=== PATIENT | male | born 1935 | race Caucasian/White ===

== ENCOUNTER 2016-06-15 22:40 | Observation (INO) | payer MEDICARE, OTHER ==
--- NOTE | 2016-06-16 00:08 | ER Document Report ---
ED General - General Chief Complaint: Fall Injury Stated Complaint: FALL,ARM PAIN Notes: Patient is an 81-year-old male who presents with complaint of fall. He says he' s been very weak over last week. This regression worsening. Today he's fallen 3 times. Says he has pain over left arm. It hurts when he moves his elbow. He denies any other injuries from the fall. He denies any focal weakness or numbness. He says globally he just feels very weak. He says he does have a bad left ankle and leg related to previous surgery. He says this may be worsening some. No recent fevers. No known infections. No cough or congestion. No abdominal pain. No chest pain. No other complaints at this time. TRAVEL OUTSIDE OF THE [place] IN LAST 30 DAYS: No - Related Data Allergies/Adverse Reactions: No Known Allergies Allergy (Verified 06/15/14 16:15) Past Medical History - Social History Smoking Status: Unknown if Ever Smoked Frequency of alcohol use: None Drug Abuse: None Family History: Reviewed & Not Pertinent - Past Medical History Cardiac Medical History: Reports: Hx Hypercholesterolemia, Hx Hypertension Pulmonary Medical History: Reports: Hx Pneumonia Past Surgical History: Reports: Hx Oral Surgery, Hx Orthopedic Surgery - Immunizations Hx Diphtheria, Pertussis, Tetanus Vaccination: Yes Hx Pneumococcal Vaccination: 02/12/10 Review of Systems - Review of Systems Notes: My Normal Review Basic REVIEW OF SYSTEMS: CONSTITUTIONAL : Denies fever, chills, or sweats. Denies recent illness. EENT: Denies eye, ear, throat, or mouth pain or symptoms. Denies nasal or sinus congestion. CARDIOVASCULAR: Denies chest pain. RESPIRATORY: Denies cough, cold, or chest congestion. Denies shortness of breath, difficulty breathing, or wheezing. GASTROINTESTINAL: Denies abdominal pain. Denies nausea, vomiting, or diarrhea. Denies constipation. Last BM: MUSCULOSKELETAL: Denies neck or back pain or joint pain or swelling. SKIN: Denies rash or skin lesions. HEMATOLOGIC : Denies easy bruising or bleeding. LYMPHATIC: Denies swollen, enlarged glands. NEUROLOGICAL: Denies altered mental status or loss of consciousness. Denies headache. Denies weakness or paralysis or loss of use of either side. Denies problems with gait or speech. Denies sensory or motor loss. Feels globally weak. ALL OTHER SYSTEMS REVIEWED AND NEGATIVE. Physical Exam - Notes Notes: General Appearance: Well nourished, alert, cooperative, no acute distress, no obvious discomfort. Weak appearing. Vitals: reviewed, See vital signs table. Head: no swelling or tenderness to the head Eyes: PERRL, EOMI, Conjuctiva clear Mouth: No decreasd moisture Throat: No tonsillar inflammation, No airway obstruction, No lymphadenopathy Neck: Supple, no neck tenderness, No thyromegaly Lungs: No wheezing, No rales, No rhonci, No accessory muscle use, good air exchange bilaterally. Heart: Tachycardic rate, Regular rythm, No murmur, no rub Abdomen: Normal BS, soft, No rigidity, No abdominal tenderness, No guarding, no rebound, no abdominal masses, no organomegaly Extremities: strength 5/5 in all extremities, good pulses in all extremities, some pain with movement of left elbow, no edema. Skin: warm, dry, appropriate color, no rash Neuro: speech clear, oriented x 3, normal affect, responds appropriately to questions. Course - Re-evaluation Re-evalutation: 06/16/16 04:26 I reevaluated the patient. He continues to be tachycardic. His laboratory evaluation does not show anything specific that could be causing his weakness. Patient is now starting to complain of some pain. Pain is in his abdomen. He is not having this earlier. I did re-palpating his abdomen. He has pain mainly in the right side. I will order a CT scan with IV contrast to evaluate his abdominal pain. Patient says he feels constipated. I will also order lactic acid. - Laboratory Result Diagrams: 06/16/16 02:45 06/16/16 02:45 Laboratory results interpreted by me: 06/16/16 06/16/16 06/16/16 02:27 02:45 02:45 WBC 12.3 H Absolute Neutrophils 8.9 H Glucose 138 H TSH Urine Protein 30 H Urine Glucose (UA) >=500 H Urine Blood SMALL H 06/16/16 02:45 WBC Absolute Neutrophils Glucose TSH 5.30 H Urine Protein Urine Glucose (UA) Urine Blood - EKG Interpretation by Me Additional EKG results interpreted by me: 06/16/16 00:08 EKG is reviewed and interpreted by me. EKG shows sinus rhythm with rate of [address] segment elevation or depression. No skin T wave inversions. Occasional PVC. LA interval is prolonged. QRS duration QTC intervals are within normal range. Patient does have small inferior Q waves which are unchanged comparison to her old EKG from 06/15/2014. 06/16/16 00:09 - Transfer of Care Notes: 06/16/16 06:27 The exact cause of the patient's weakness is not exactly clear at this time. He did develop some lower abdominal pain. It was not severe. His abdominal exam. Be fairly benign except for some pain to palpation lower abdomen. Did obtain a CT scan a lactic acid. Lactic gas was normal. CT scan just showed some urinary retention and bladder stones. He says he does feel constipated and he does have some stool in the rectum. Again did do not think this represents why he has worsening weakness over the last week as well as frequent falls. I did scan his head which was negative. On exam he is very weak and has difficulty even sitting up in bed on his own. Due to his severe weakness, tachycardia, frequent falls, I do think it is appropriate to admit him to the hospital for further workup and treatment. I did speak with the hospitalist who agrees that the patient. Dictation of this chart was performed using voice recognition software; therefore, there may be some unintended grammatical errors. Discharge - Discharge Clinical Impression: Tachycardia, Urinary retention Abdominal pain Qualifiers: Abdominal location: unspecified location Qualified Code(s): R10.9 - Unspecified abdominal pain Fall Qualifiers: Encounter type: initial encounter Qualified Code(s): W19.XXXA - Unspecified fall, initial encounter Condition: Stable Disposition: ADMITTED OBSERVATION Admitting Provider: Hospitalist Unit Admitted: Telemetry
[2016-06-16] MEDS ORDERED: DIPH/PERTUSS(ACELL)/TETANUS VAC/PF 0.5 ML SYR (>=10YO) IM ONE (00:33)
[2016-06-16] MEDS ORDERED: CEPHALEXIN 500 MG CAPSULE PO ONE (00:33)
[2016-06-16] MEDS ORDERED: NORMAL SALINE 1000 ML 1,000 ML IV ONE (01:10)
[2016-06-16 02:53] LABS: APPEARANCE,URINE CLEAR; BILIRUBIN,URINE NEGATIVE (NEGATIVE); GLUCOSE, URINE >=500 mg/dL (NEGATIVE); KETONES,URINE NEGATIVE (NEGATIVE); LEUKOCYTE ESTERASE,URINE NEGATIVE (NEGATIVE); NITRITE,URINE NEGATIVE (NEGATIVE); PROTEIN,URINE 30 mg/dL (NEGATIVE); URINE SPECIFIC GRAVITY 1.006; UROBILINOGEN,URINE NEGATIVE mg/dL (<2.0)
[2016-06-16 03:07] LABS: ABSOLUTE BASOPHILS # (AUTO) 0.1 10^3/uL (0.0-0.2); ABSOLUTE EOSINOPHILS # (AUTO) 0.1 10^3/uL (0.0-0.6); ABSOLUTE MONOCYTES (AUTO) 1.2 10^3/uL (0.1-1.4); ABSOLUTE NEUT (AUTO) 8.9 10^3/uL (1.7-8.2); BASOPHILS % (AUTO) 0.9 % (0-2); EOSINOPHILS % (AUTO) 0.9 % (0-6); HEMATOCRIT 48.6 % (37.9-51.0); HEMOGLOBIN 16.4 g/dL (13.5-17.0); HGB HCT DIFFERENCE 0.6; LYMPHOCYTES % (AUTO) 16.4 % (13-45); MEAN CORPUSCULAR HEMOGLOBIN 31.7 pg (27.0-33.4); MEAN CORPUSCULAR HGB CONC 33.8 g/dL (32.0-36.0); MEAN CORPUSCULAR VOLUME 94 fl (80-97); MONOCYTES % (AUTO) 9.9 % (3-13); RED BLOOD COUNT 5.18 10^6/uL (4.35-5.55); SEGMENTED NEUTROPHILS % (AUTO) 71.9 % (42-78); WHITE BLOOD COUNT 12.3 10^3/uL (4.0-10.5)
[2016-06-16 03:16] LABS: ALANINE AMINOTRANSFERASE 40 U/L (21-72); ALBUMIN 4.1 g/dL (3.5-5.0); ALKALINE PHOSPHATASE 72 U/L (38-126); ANION GAP 14 (5-19); ASPARTATE AMINO TRANSFERASE 26 U/L (17-59); BILIRUBIN,TOTAL 0.7 mg/dL (0.2-1.3); BLOOD UREA NITROGEN 11 mg/dL (7-20); CALCIUM 9.6 mg/dL (8.4-10.2); CARBON DIOXIDE 24 mmol/L (22-30); CHLORIDE 100 mmol/L (98-107); CREATINE KINASE 126 U/L (55-170); CREATININE RESULT 0.83 mg/dL (0.52-1.25); GLUCOSE 138 mg/dL (75-110); LIPASE 103.6 U/L (23-300); POTASSIUM 4.4 mmol/L (3.6-5.0); SODIUM 138.4 mmol/L (137-145); TOTAL PROTEIN 7.9 g/dL (6.3-8.2)
[2016-06-16 03:27] LABS: CREATINE KINASE MB 1.64 ng/mL (<4.55); TROPONIN I 0.015 ng/mL
[2016-06-16] MEDS ORDERED: FENTANYL CITRATE INJ/PF 100 MCG/2 ML AMPUL IV ONE (04:25)
[2016-06-16] MEDS ORDERED: LACTULOSE SYRUP 20 GM/30 ML UDCUP PO ONE (06:26)
[2016-06-16] MEDS ORDERED: ACETAMINOPHEN 325 MG TABLET PO PRN (06:28)
[2016-06-16] MEDS ORDERED: ONDANSETRON HCL INJ/PF 4 MG/2 ML SDV IV PRN (06:28)
[2016-06-16] MEDS ORDERED: HYDRALAZINE HCL INJ/PF 20 MG/1 ML SDV IV PRN (06:53)
[2016-06-16 07:41] LABS: FREE T3 4.35 pg/mL (2.77-5.27)
--- NOTE | 2016-06-16 07:46 | PDOC H&P ---
History of Present Illness Admission Date/PCP: 06/16/16 06:28 Patient complains of: Generalized weakness and fall History of Present Illness: ALYSE ÁLVAREZ is a 81 year old male with a past medical history of hypertension, BPH and tobacco who'd been in his usual state of health until proximally 10 days ago noted exceptional weakness which has become gradually worse also associated with abdominal pain prompting him to call EMS who found him disheveled covered in roaches despite living with and son. In the emergency room he's found to have a blood pressure of 208 8/117 and sinus tachycardia in the 130s. Hematology and chemistry labs are unremarkable, CT imaging of abdomen and pelvis show constipation. Patient states he is run out of his medications approximately 2 weeks ago and unable to obtain refill as he is unable to drive. Past Medical History Cardiac Medical History: Reports: Hyperlipidema, Hypertension Pulmonary Medical History: Reports: Pneumonia Psychiatric Medical History: Reports: Tobacco Dependency Past Surgical History Past Surgical History: Reports: Orthopedic Surgery Social History Information Source: Patient Lives with: Family Smoking Status: Unknown if Ever Smoked Frequency of Alcohol Use: Occasional Hx Recreational Drug Use: No Hx Prescription Drug Abuse: No - Advance Directive Resuscitation Status: Full Code Family History Family History: COPD, Hypertension Parental Family History Reviewed: Yes Children Family History Reviewed: Yes Sibling(s) Family History Reviewed.: Yes Medication/Allergy Home Medications: Finasteride 5 mg PO DAILY 05/16/14 Hydrochlorothiazide 25 mg PO DAILY 05/16/14 Hydrocodone/Acetaminophen [Hydrocodon-Acetaminoph 7.5-325] 1 each PO BID PRN 06/29 Lisinopril 20 mg PO DAILY 05/16/14 Simvastatin 20 mg PO QHS 05/16/14 Tamsulosin HCl 0.4 mg PO DAILY 05/16/14 Cyclobenzaprine HCl 5 mg PO BID PRN 05/30/14 Silver Sulfadiaz/Foam Bandage [Allevyn Ag Adhesive 3"X3"] 1 each TP DAILY #0 bandage 06/02/14 Allergies/Adverse Reactions: No Known Allergies Allergy (Verified 06/15/14 16:15) Review of Systems Constitutional: PRESENT: anorexia, fatigue, weakness, weight loss Eyes: ABSENT: visual disturbances Ears: ABSENT: hearing changes Cardiovascular: ABSENT: chest pain, dyspnea on exertion, edema, orthropnea, palpitations Respiratory: ABSENT: cough, hemoptysis Gastrointestinal: PRESENT: bloating, constipation. ABSENT: diarrhea, dysphagia , heartburn Genitourinary: ABSENT: dysuria, hematuria Musculoskeletal: PRESENT: muscle weakness Integumentary: PRESENT: other - Small superficial abrasion to left forearm without significant puncture, laceration or exudate Neurological: PRESENT: abnormal gait, frequent falls, weakness. ABSENT: abnormal speech, confusion, dizziness, focal weakness, syncope, tingling, tremor (s), vertigo Psychiatric: ABSENT: anxiety, depression, homidical ideation, suicidal ideation Endocrine: ABSENT: cold intolerance, heat intolerance, polydipsia, polyuria Hematologic/Lymphatic: ABSENT: easy bleeding, easy bruising Physical Exam Vital Signs: Temp Pulse Resp BP Pulse Ox 98.6 F 116 H 15 166/93 H 93 06/15/16 22:50 06/15/16 22:50 06/16/16 04:01 06/16/16 06:45 06/16/16 06:45 Intake & Output 06/14/16 06/15/16 06/16/16 11:59 11:59 11:59 Weight 77.111 kg General appearance: PRESENT: cooperative, disheveled, mild distress, thin Head exam: PRESENT: atraumatic, normocephalic Eye exam: PRESENT: conjunctiva pink, EOMI, PERRLA. ABSENT: scleral icterus Ear exam: PRESENT: normal external ear exam Mouth exam: PRESENT: dry mucosa Neck exam: ABSENT: carotid bruit, JVD, lymphadenopathy, thyromegaly Respiratory exam: PRESENT: clear to auscultation luis miguel. ABSENT: rales, rhonchi, wheezes Cardiovascular exam: PRESENT: +S1, +S2, tachycardia. ABSENT: systolic murmur Pulses: PRESENT: normal dorsalis pedis pul Vascular exam: PRESENT: normal capillary refill GI/Abdominal exam: PRESENT: hypoactive bowel sounds, soft, tenderness. ABSENT: guarding, hernia, mass, Mixon's sign, normal bowel sounds, organolmegaly, rebound Rectal exam: PRESENT: deferred Extremities exam: PRESENT: full ROM. ABSENT: calf tenderness, clubbing, pedal edema Neurological exam: PRESENT: alert, awake, oriented to person, oriented to place , oriented to time, oriented to situation, CN II-XII grossly intact. ABSENT: motor sensory deficit Psychiatric exam: PRESENT: anxious Skin exam: PRESENT: abrasion - Small superficial abrasion to the left forearm without puncture or exudate, dry, intact, warm. ABSENT: cyanosis, rash Results Impressions: Chest X-Ray 06/16/16 01:09 IMPRESSION: NO ACUTE RADIOGRAPHIC FINDING IN THE CHEST. Elbow X-Ray 06/16/16 01:09 IMPRESSION: NEGATIVE STUDY OF THE LEFT ELBOW. NO RADIOGRAPHIC EVIDENCE OF ACUTE INJURY. Head CT 06/16/16 01:09 IMPRESSION: CHRONIC CHANGES OF ATROPHY AND MICROVASCULAR ISCHEMIA. NO ACUTE PROCESS. Abdomen/Pelvis CT 06/16/16 04:25 IMPRESSION: Multiple small calcific densities are identified within the bladder consistent with bladder calculi. The bladder is distended. Other findings as noted above Assessment & Plan - Diagnosis (1) Hypertensive urgency Is this a current diagnosis for this admission?: YesPlan: Patiently ran out of blood pressure medication approximately 10 days ago blood pressure of 208/117 in the emergency room the receive hydralazine when necessary and otherwise resumption of home regiment (2) Failure to thrive Is this a current diagnosis for this admission?: YesPlan: Patient found in the portable living condition covered and roaches, discharge planning consulted (3) Abdominal pain Qualifiers: Abdominal location: unspecified location Qualified Code(s): R10.9 - Unspecified abdominal pain Is this a current diagnosis for this admission?: YesPlan: Initial concerned for ischemic bowel not suggested by CT imaging or biochemically with chemistry and without acidosis, likely secondary to constipation. Trial of lactulose initiated (4) Fall Qualifiers: Encounter type: initial encounter Qualified Code(s): W19.XXXA - Unspecified fall, initial encounter Is this a current diagnosis for this admission?: YesPlan: Orthostatic blood pressures and physical therapy consult - Time Time Spent: 50 to 70 Minutes
[2016-06-16 08:12] LABS: CREATINE KINASE MB 1.88 ng/mL (<4.55); TROPONIN I 0.031 ng/mL
[2016-06-16] MEDS: TAMSULOSIN HCL 0.4 MG CAP.SR.24H PO SCH (09:11)
[2016-06-16] MEDS: METOPROLOL TARTRATE 50 MG TABLET PO SCH (10:48)
[2016-06-16] MEDS: LISINOPRIL 10 MG TABLET PO SCH (10:49)
[2016-06-16] MEDS: DOCUSATE SODIUM 100 MG CAPSULE PO SCH ×2 (10:49→17:23)
[2016-06-16] MEDS: FINASTERIDE 5 MG TABLET PO SCH (10:50)
[2016-06-16] MEDS: HYDROCHLOROTHIAZIDE 25 MG TABLET PO SCH (10:50)
--- NOTE | 2016-06-16 11:24 | EKG REPORT ---
SEVERITY:- ABNORMAL ECG - SINUS TACHYCARDIA VENTRICULAR PREMATURE COMPLEX FIRST DEGREE AV BLOCK : Confirmed by: Rocco Aaron 16-Jun-2016 11:22:21
--- NOTE | 2016-06-16 13:31 | PDOC PROGRESS REPORT ---
Subjective Progress Note for:: 06/16/16 Subjective:: Patient seen on morning rounds. He is awake, alert and oriented x 3. He denies any chest pain, shortness of breath or dizziness. He denies any nausea, vomiting , abdominal pain or diarrhea. He denies any back pain or myalgias. He states he has not had his medications in over 3 weeks because he has no transportation other than taxi, which often he can't afford. Rest of the review of systems are negative. Physical Exam Vital Signs: Temp Pulse Resp BP Pulse Ox 97.7 F 63 16 137/67 H 94 06/16/16 10:40 06/16/16 10:40 06/16/16 10:40 06/16/16 10:40 06/16/16 10:40 Intake & Output 06/15/16 06/16/16 06/17/16 06:59 06:59 06:59 Weight 77.111 kg General appearance: PRESENT: no acute distress, well-developed, well-nourished Head exam: PRESENT: atraumatic, normocephalic Eye exam: PRESENT: conjunctiva pink, EOMI, PERRLA. ABSENT: scleral icterus Ear exam: PRESENT: bleeding Mouth exam: PRESENT: moist, tongue midline Neck exam: ABSENT: carotid bruit, JVD, lymphadenopathy, thyromegaly Cardiovascular exam: PRESENT: RRR. ABSENT: diastolic murmur, rubs, systolic murmur Pulses: PRESENT: normal dorsalis pedis pul Vascular exam: PRESENT: normal capillary refill GI/Abdominal exam: PRESENT: normal bowel sounds, soft. ABSENT: distended, guarding, mass, organolmegaly, rebound, tenderness Rectal exam: PRESENT: deferred Extremities exam: PRESENT: full ROM. ABSENT: calf tenderness, clubbing, pedal edema Neurological exam: PRESENT: alert, awake, oriented to person, oriented to place , oriented to time, oriented to situation, CN II-XII grossly intact. ABSENT: motor sensory deficit Psychiatric exam: PRESENT: appropriate affect, normal mood. ABSENT: homicidal ideation, suicidal ideation Skin exam: PRESENT: dry, intact, warm. ABSENT: cyanosis, rash Results Laboratory Results: 06/16/16 06/16/16 07:30 07:30 Creatine Kinase 121 CK-MB (CK-2) 1.88 Troponin I 0.031 Impressions: Chest X-Ray 06/16/16 01:09 IMPRESSION: NO ACUTE RADIOGRAPHIC FINDING IN THE CHEST. Elbow X-Ray 06/16/16 01:09 IMPRESSION: NEGATIVE STUDY OF THE LEFT ELBOW. NO RADIOGRAPHIC EVIDENCE OF ACUTE INJURY. Head CT 06/16/16 01:09 IMPRESSION: CHRONIC CHANGES OF ATROPHY AND MICROVASCULAR ISCHEMIA. NO ACUTE PROCESS. Abdomen/Pelvis CT 06/16/16 04:25 IMPRESSION: Multiple small calcific densities are identified within the bladder consistent with bladder calculi. The bladder is distended. Other findings as noted above Assessment & Plan - Diagnosis (1) Hypertensive urgency Is this a current diagnosis for this admission?: YesPlan: Will start metoprolol 50 mg bid in addition to current medications. Blood pressure is improving. (2) Urinary retention Is this a current diagnosis for this admission?: YesPlan: Berry placed. Started on Flomax (3) Abdominal pain Qualifiers: Abdominal location: unspecified location Qualified Code(s): R10.9 - Unspecified abdominal pain Is this a current diagnosis for this admission?: YesPlan: Probable cause is constipation. Patient given lactulose with some response (4) Sacral decubitus ulcer, stage II Is this a current diagnosis for this admission?: YesPlan: Local wound care per nursing. Avoid pressure to coccyx (5) Osteoarthritis Qualifiers: Osteoarthritis location: knee Laterality: right Is this a current diagnosis for this admission?: YesPlan: Continue Tylenol and Vicodin as needed - Time Time Spent with patient: 25-34 minutes Critical Time spent with patient: 15-24 minutes Medications reviewed and adjusted accordingly: Yes
[2016-06-16 13:48] LABS: CREATINE KINASE MB 2.17 ng/mL (<4.55); TROPONIN I 0.029 ng/mL
[2016-06-16] MEDS: HEPARIN SOD (PORCINE) 5,000 UNIT/ML 1 ML SYRINGE SUBCUT SCH ×2 (13:56→22:44)
[2016-06-16] MEDS ORDERED: INFLUENZA ADLT QUAD (36MOS+) 2016-17 VAC 0.5 ML SYR IM PRN (14:01)
[2016-06-16 19:11] LABS: CREATINE KINASE MB 2.02 ng/mL (<4.55); TROPONIN I 0.019 ng/mL
[2016-06-16] MEDS ORDERED: (PENDING PHARMACY ID) (Simvastatin [Simvastatin] 20 MG) PO SCH (22:00)
[2016-06-16] MEDS: SIMVASTATIN 10 MG TABLET PO SCH (22:44)
[2016-06-17] MEDS: METOPROLOL TARTRATE 50 MG TABLET PO SCH ×3 (02:38→21:53)
[2016-06-17 05:54] LABS: ABSOLUTE BASOPHILS # (AUTO) 0.1 10^3/uL (0.0-0.2); ABSOLUTE EOSINOPHILS # (AUTO) 0.2 10^3/uL (0.0-0.6); ABSOLUTE LYMPHOCYTES (AUTO) 2.5 10^3/uL (0.5-4.7); ABSOLUTE NEUT (AUTO) 5.9 10^3/uL (1.7-8.2); BASOPHILS % (AUTO) 0.6 % (0-2); EOSINOPHILS % (AUTO) 2.4 % (0-6); HEMOGLOBIN 15.3 g/dL (13.5-17.0); HGB HCT DIFFERENCE 0.9; LYMPHOCYTES % (AUTO) 26.1 % (13-45); MEAN CORPUSCULAR HEMOGLOBIN 31.7 pg (27.0-33.4); MEAN CORPUSCULAR HGB CONC 33.9 g/dL (32.0-36.0); MEAN CORPUSCULAR VOLUME 93 fl (80-97); MONOCYTES % (AUTO) 10.1 % (3-13); RED BLOOD COUNT 4.82 10^6/uL (4.35-5.55); RED CELL DISTRIBUTION WIDTH 12.9 % (11.5-14.0); SEGMENTED NEUTROPHILS % (AUTO) 60.8 % (42-78); WHITE BLOOD COUNT 9.6 10^3/uL (4.0-10.5)
[2016-06-17] MEDS: HEPARIN SOD (PORCINE) 5,000 UNIT/ML 1 ML SYRINGE SUBCUT SCH ×3 (06:11→21:51)
[2016-06-17 06:16] LABS: ANION GAP 11 (5-19); BLOOD UREA NITROGEN 15 mg/dL (7-20); CALCIUM 8.9 mg/dL (8.4-10.2); CARBON DIOXIDE 26 mmol/L (22-30); CHLORIDE 99 mmol/L (98-107); CREATININE RESULT 0.84 mg/dL (0.52-1.25); GLUCOSE 134 mg/dL (75-110); SODIUM 136.3 mmol/L (137-145)
[2016-06-17] MEDS ORDERED: (PENDING PHARMACY ID) (Cyclobenzaprine Hcl [Flexeril 5 Mg Tablet] 5 MG) PO PRN (08:48)
[2016-06-17] MEDS ORDERED: CYCLOBENZAPRINE HCL 10 MG TABLET PO PRN (09:16)
[2016-06-17] MEDS ORDERED: FINASTERIDE 5 MG TABLET PO SCH (10:00)
[2016-06-17] MEDS: TAMSULOSIN HCL 0.4 MG CAP.SR.24H PO SCH (10:17)
[2016-06-17] MEDS: LISINOPRIL 10 MG TABLET PO SCH (10:20)
[2016-06-17] MEDS: DOCUSATE SODIUM 100 MG CAPSULE PO SCH ×2 (10:20→17:34)
[2016-06-17] MEDS: HYDROCHLOROTHIAZIDE 25 MG TABLET PO SCH (10:20)
[2016-06-17] MEDS: FINASTERIDE 5 MG TABLET PO SCH (10:20)
--- NOTE | 2016-06-17 15:34 | PDOC PROGRESS REPORT ---
Subjective Progress Note for:: 06/17/16 Subjective:: Patient seen on morning rounds. He is awake, alert and oriented x 3. He denies any chest pain, shortness of breath or dizziness. He denies any nausea, vomiting , abdominal pain or diarrhea. He denies any back pain or myalgias. He states he has not had his medications in over 3 weeks because he has no transportation other than taxi, which often he can't afford. Rest of the review of systems are negative. Physical Exam Vital Signs: Temp Pulse Resp BP Pulse Ox 98.2 F 66 18 121/65 94 06/17/16 12:24 06/17/16 12:24 06/17/16 12:24 06/17/16 12:24 06/17/16 12:24 Intake & Output 06/16/16 06/17/16 06/18/16 06:59 06:59 06:59 Intake Total 20 358 Output Total 2450 200 Balance -2430 158 Weight 78.5 kg General appearance: PRESENT: no acute distress, disheveled, well-developed, well -nourished Head exam: PRESENT: atraumatic, normocephalic Eye exam: PRESENT: conjunctiva pink, EOMI, PERRLA. ABSENT: scleral icterus Ear exam: PRESENT: normal external ear exam Mouth exam: PRESENT: moist, tongue midline Neck exam: ABSENT: carotid bruit, JVD, lymphadenopathy, thyromegaly Respiratory exam: PRESENT: clear to auscultation luis miguel. ABSENT: rales, rhonchi, wheezes Cardiovascular exam: PRESENT: RRR. ABSENT: diastolic murmur, rubs, systolic murmur Pulses: PRESENT: normal dorsalis pedis pul Vascular exam: PRESENT: normal capillary refill GI/Abdominal exam: PRESENT: normal bowel sounds, soft. ABSENT: distended, guarding, mass, organolmegaly, rebound, tenderness Rectal exam: PRESENT: deferred Extremities exam: PRESENT: full ROM. ABSENT: calf tenderness, clubbing, pedal edema Neurological exam: PRESENT: alert, altered, CN II-XII grossly intact, normal gait Psychiatric exam: PRESENT: appropriate affect, normal mood. ABSENT: homicidal ideation, suicidal ideation Skin exam: PRESENT: dry, intact, warm. ABSENT: cyanosis, rash Results Laboratory Results: 06/17/16 05:30 06/17/16 05:30 06/17/16 06/17/16 05:30 05:30 WBC 9.6 RBC 4.82 Hgb 15.3 Hct 45.0 MCV 93 MCH 31.7 MCHC 33.9 RDW 12.9 Plt Count 210 Seg Neutrophils % 60.8 Lymphocytes % 26.1 Monocytes % 10.1 Eosinophils % 2.4 Basophils % 0.6 Absolute Neutrophils 5.9 Absolute Lymphocytes 2.5 Absolute Monocytes 1.0 Absolute Eosinophils 0.2 Absolute Basophils 0.1 Sodium 136.3 L Potassium 4.0 Chloride 99 Carbon Dioxide 26 Anion Gap 11 BUN 15 Creatinine 0.84 Est GFR ( Amer) > 60 Est GFR (Non-Af Amer) > 60 Glucose 134 H Calcium 8.9 06/16/16 06/16/16 06/16/16 07:30 07:30 12:48 Creatine Kinase 121 104 CK-MB (CK-2) 1.88 Troponin I 0.031 06/16/16 06/16/16 06/16/16 12:48 18:30 18:30 Creatine Kinase 126 CK-MB (CK-2) 2.17 2.02 Troponin I 0.029 0.019 Impressions: Chest X-Ray 06/16/16 01:09 IMPRESSION: NO ACUTE RADIOGRAPHIC FINDING IN THE CHEST. Elbow X-Ray 06/16/16 01:09 IMPRESSION: NEGATIVE STUDY OF THE LEFT ELBOW. NO RADIOGRAPHIC EVIDENCE OF ACUTE INJURY. Head CT 06/16/16 01:09 IMPRESSION: CHRONIC CHANGES OF ATROPHY AND MICROVASCULAR ISCHEMIA. NO ACUTE PROCESS. Abdomen/Pelvis CT 06/16/16 04:25 IMPRESSION: Multiple small calcific densities are identified within the bladder consistent with bladder calculi. The bladder is distended. Other findings as noted above Assessment & Plan - Diagnosis (1) Hypertensive urgency Is this a current diagnosis for this admission?: YesPlan: Will start metoprolol 50 mg bid in addition to current medications. Blood pressure is improving. (2) Urinary retention Is this a current diagnosis for this admission?: YesPlan: Mendoza placed. Started on Flomax. Will d/c mendoza this evening (3) Abdominal pain Qualifiers: Abdominal location: unspecified location Qualified Code(s): R10.9 - Unspecified abdominal pain Is this a current diagnosis for this admission?: YesPlan: Probable cause is constipation. Patient given lactulose with some response (4) Sacral decubitus ulcer, stage II Is this a current diagnosis for this admission?: YesPlan: Local wound care per nursing. Avoid pressure to coccyx (5) Osteoarthritis Qualifiers: Osteoarthritis location: knee Laterality: right Is this a current diagnosis for this admission?: YesPlan: Continue Tylenol and Vicodin as needed - Time Time Spent with patient: 25-34 minutes Smoking Cessation Education: 3 to 10 minutes Medications reviewed and adjusted accordingly: Yes Anticipated discharge: Home with Homehealth
[2016-06-17] MEDS: SIMVASTATIN 10 MG TABLET PO SCH (21:52)
[2016-06-17] MEDS ORDERED: SIMVASTATIN 10 MG TABLET PO SCH (22:00)
[2016-06-18] MEDS: HEPARIN SOD (PORCINE) 5,000 UNIT/ML 1 ML SYRINGE SUBCUT SCH ×3 (05:22→21:16)
[2016-06-18 06:21] LABS: ANION GAP 11 (5-19); BLOOD UREA NITROGEN 19 mg/dL (7-20); CALCIUM 9.5 mg/dL (8.4-10.2); CARBON DIOXIDE 30 mmol/L (22-30); CHLORIDE 94 mmol/L (98-107); CREATININE RESULT 0.76 mg/dL (0.52-1.25); GLUCOSE 116 mg/dL (75-110); POTASSIUM 4.2 mmol/L (3.6-5.0); SODIUM 135.4 mmol/L (137-145)
[2016-06-18] MEDS: DOCUSATE SODIUM 100 MG CAPSULE PO SCH ×2 (10:17→17:25)
[2016-06-18] MEDS: HYDROCHLOROTHIAZIDE 25 MG TABLET PO SCH (10:17)
[2016-06-18] MEDS: FINASTERIDE 5 MG TABLET PO SCH (10:17)
[2016-06-18] MEDS: METOPROLOL TARTRATE 50 MG TABLET PO SCH ×2 (10:17→21:15)
[2016-06-18] MEDS: LISINOPRIL 10 MG TABLET PO SCH (10:18)
[2016-06-18] MEDS: TAMSULOSIN HCL 0.4 MG CAP.SR.24H PO SCH (10:18)
[2016-06-18] MEDS ORDERED: BISACODYL 10 MG SUPP.RECT PR ONE (10:30)
[2016-06-18] MEDS ORDERED: POLYETHYLENE GLYCOL 3350 POWDER 17 GM/1 PACKET PO ONE (10:45)
--- NOTE | 2016-06-18 15:48 | PDOC PROGRESS REPORT ---
Subjective Progress Note for:: 06/18/16 Subjective:: Patient seen on morning rounds. He is awake and alert, confused to everything besides person. He denies any chest pain, shortness of breath or dizziness. He denies any nausea, vomiting, abdominal pain or diarrhea. He denies any back pain or myalgias. He states he has not had his medications in over 3 weeks because he has no transportation other than taxi, which often he can't afford. Rest of the review of systems are negative. Physical Exam Vital Signs: Temp Pulse Resp BP Pulse Ox 97.7 F 65 22 H 121/54 L 96 06/18/16 12:22 06/18/16 12:22 06/18/16 12:22 06/18/16 12:22 06/18/16 12:22 Intake & Output 06/17/16 06/18/16 06/19/16 06:59 06:59 06:59 Intake Total 20 1108 Output Total 2450 850 Balance -2430 258 Weight 78.5 kg 77.6 kg General appearance: PRESENT: no acute distress, disheveled, well-developed, well -nourished Head exam: PRESENT: atraumatic, normocephalic Eye exam: PRESENT: conjunctiva pink, EOMI, PERRLA. ABSENT: scleral icterus Ear exam: PRESENT: normal external ear exam Mouth exam: PRESENT: moist, tongue midline Teeth exam: PRESENT: poor dentation Neck exam: ABSENT: carotid bruit, JVD, lymphadenopathy, thyromegaly Respiratory exam: PRESENT: clear to auscultation luis miguel. ABSENT: rales, rhonchi, wheezes Cardiovascular exam: PRESENT: RRR. ABSENT: diastolic murmur, rubs, systolic murmur Pulses: PRESENT: normal dorsalis pedis pul Vascular exam: PRESENT: normal capillary refill GI/Abdominal exam: PRESENT: normal bowel sounds, soft. ABSENT: distended, guarding, mass, organolmegaly, rebound, tenderness Rectal exam: PRESENT: deferred Extremities exam: PRESENT: full ROM. ABSENT: calf tenderness, clubbing, pedal edema Neurological exam: PRESENT: alert, awake, oriented to person, CN II-XII grossly intact Psychiatric exam: PRESENT: appropriate affect, normal mood. ABSENT: homicidal ideation, suicidal ideation Skin exam: PRESENT: dry, intact, warm. ABSENT: cyanosis, rash Results Laboratory Results: 06/17/16 05:30 06/18/16 05:36 06/18/16 05:36 Sodium 135.4 L Potassium 4.2 Chloride 94 L Carbon Dioxide 30 Anion Gap 11 BUN 19 Creatinine 0.76 Est GFR ( Amer) > 60 Est GFR (Non-Af Amer) > 60 Glucose 116 H Calcium 9.5 06/16/16 06/16/16 06/16/16 07:30 07:30 12:48 Creatine Kinase 121 104 CK-MB (CK-2) 1.88 Troponin I 0.031 06/16/16 06/16/16 06/16/16 12:48 18:30 18:30 Creatine Kinase 126 CK-MB (CK-2) 2.17 2.02 Troponin I 0.029 0.019 Impressions: Chest X-Ray 06/16/16 01:09 IMPRESSION: NO ACUTE RADIOGRAPHIC FINDING IN THE CHEST. Elbow X-Ray 06/16/16 01:09 IMPRESSION: NEGATIVE STUDY OF THE LEFT ELBOW. NO RADIOGRAPHIC EVIDENCE OF ACUTE INJURY. Head CT 06/16/16 01:09 IMPRESSION: CHRONIC CHANGES OF ATROPHY AND MICROVASCULAR ISCHEMIA. NO ACUTE PROCESS. Abdomen/Pelvis CT 06/16/16 04:25 IMPRESSION: Multiple small calcific densities are identified within the bladder consistent with bladder calculi. The bladder is distended. Other findings as noted above Assessment & Plan - Diagnosis (1) Hypertensive urgency Is this a current diagnosis for this admission?: YesPlan: Will start metoprolol 50 mg bid in addition to current medications. Blood pressure is improving. (2) Abdominal pain Qualifiers: Abdominal location: unspecified location Qualified Code(s): R10.9 - Unspecified abdominal pain Is this a current diagnosis for this admission?: YesPlan: Probable cause is constipation. Patient given lactulose with some response. Will give dulcolax suppository this am (3) Urinary retention Is this a current diagnosis for this admission?: YesPlan: Berry placed. Started on Flomax. Berry wasn't removed last evening as ordered. Will be discontinued this morning (4) Sacral decubitus ulcer, stage II Is this a current diagnosis for this admission?: YesPlan: Local wound care per nursing. Avoid pressure to coccyx (5) Osteoarthritis Qualifiers: Osteoarthritis location: knee Laterality: right Is this a current diagnosis for this admission?: YesPlan: Continue Tylenol and Vicodin as needed - Time Time Spent with patient: 25-34 minutes Medications reviewed and adjusted accordingly: Yes Anticipated discharge: Home with Homehealth Within: within 24 hours
[2016-06-18] MEDS: SIMVASTATIN 10 MG TABLET PO SCH (21:15)
[2016-06-19] MEDS: HEPARIN SOD (PORCINE) 5,000 UNIT/ML 1 ML SYRINGE SUBCUT SCH ×2 (05:51→14:36)
[2016-06-19] MEDS: TAMSULOSIN HCL 0.4 MG CAP.SR.24H PO SCH (09:04)
[2016-06-19] MEDS: FINASTERIDE 5 MG TABLET PO SCH (09:04)
[2016-06-19] MEDS: DOCUSATE SODIUM 100 MG CAPSULE PO SCH ×2 (09:16→17:20)
[2016-06-19] MEDS ORDERED: POLYETHYLENE GLYCOL 3350 POWDER 17 GM/1 PACKET PO SCH (10:00)
[2016-06-19] MEDS: HYDROCHLOROTHIAZIDE 25 MG TABLET PO SCH (12:03)
[2016-06-19] MEDS: LISINOPRIL 10 MG TABLET PO SCH (12:04)
[2016-06-19] MEDS: METOPROLOL TARTRATE 50 MG TABLET PO SCH (12:04)
--- NOTE | 2016-06-19 14:29 | PDOC DISCHARGE SUMMARY ---
General - Admit/Disc Date/PCP Admission Date/Primary Care Provider: 06/16/16 06:28 Discharge Date: 06/19/16 - Discharge Diagnosis (1) Hypertensive urgency Is this a current diagnosis for this admission?: YesSummary: Patient now normotensive on current medications (2) Abdominal pain Is this a current diagnosis for this admission?: YesSummary: Resolved. Most likely from constipation (3) Urinary retention Is this a current diagnosis for this admission?: YesSummary: Resolved with Flomax (4) Sacral decubitus ulcer, stage II Is this a current diagnosis for this admission?: YesSummary: Local wound care. Home health referral for [place] [facility] care post discharge (5) Osteoarthritis Is this a current diagnosis for this admission?: YesSummary: Tylenol prn for joint discomfort - Additional Information Resuscitation Status: Full Code Discharge Diet: Regular Discharge Activity: Activity As Tolerated, Balance Activity w/Rest Home Medications: Cyclobenzaprine HCl [Flexeril 5 mg Tablet] 5 mg PO BIDP PRN 06/16/16 Finasteride [Proscar 5 mg Tablet] 5 mg PO DAILY 06/16/16 Lisinopril [Prinivil 10 mg Tablet] 10 mg PO BID 06/16/16 Acetaminophen [Tylenol 325 mg Tablet] 325 mg PO Q4HP PRN tablet 06/19/16 Finasteride [Proscar 5 mg Tablet] 5 mg PO DAILY #30 tablet 06/19/16 Hydrochlorothiazide [Hydrodiuril 25 mg Tablet] 25 mg PO DAILY #30 tablet Lisinopril [Prinivil 10 mg Tablet] 20 mg PO DAILY #30 tablet 06/19/16 Metoprolol Tartrate [Lopressor 50 mg Tablet] 50 mg PO Q12 #30 tablet 06/19/16 Simvastatin [Zocor 10 mg Tablet] 20 mg PO QHS #30 tablet 06/19/16 Tamsulosin HCl [Flomax 0.4 mg Cap.sr] 0.4 mg PO DAILY #30 cap.sr.24h 06/19/16 Tamsulosin HCl [Flomax 0.4 mg Cap.sr] 0.4 mg PO PCBRKFST #30 cap.sr.24h History of Present Illness Patient complains of: Generalized weakness and frequent falls History of Present Illness: ALYSE ÁLVAREZ is a 81 year old male who presented to [facility] ED on 06/16/2016 after generalized weakness and frequent falls at home. He was found by EMS to be very unkempt and covered with roaches. He resides with his and grown son. He was confused to place and time. He was noted to have a blood pressure of 218/110. He stated he was out of his blood pressure medications for the last 3 weeks because. He was complaining of abdominal pain, and CT of the abdomen and pelvis was done which showed constipation and distended bladder with stones. He also complained of left arm pain. Xrays revealed no fractures. He was referred to the hospitalist for admission Hospital Course Hospital Course: Patient was admitted to telemetry on observation. He had a mendoza catheter placed to relieve bladder distension. He was given lactulose orally and enema to relieve constipation. His abdominal pain resolved. He had physical therapy evaluation, who recommended rolling walker and continued therapy post discharge. His blood pressure normalized with resumption of his blood pressure medications. Social work was consulted for discharge planning. He will be discharged home with rolling walker, home PT, home health nursing and social work. Physical Exam Vital Signs: Temp Pulse Resp BP Pulse Ox 97.6 F 70 20 122/60 96 06/19/16 12:00 06/19/16 12:00 06/19/16 12:00 06/19/16 12:00 06/19/16 12:00 Intake & Output 06/18/16 06/19/16 06/20/16 06:59 06:59 06:59 Intake Total 1108 346 Output Total 850 750 Balance 258 -404 Weight 77.6 kg 77.4 kg General appearance: PRESENT: no acute distress, well-developed, well-nourished Head exam: PRESENT: atraumatic Eye exam: PRESENT: conjunctiva pink, EOMI, PERRLA. ABSENT: scleral icterus Ear exam: PRESENT: normal external ear exam Mouth exam: PRESENT: moist, tongue midline Teeth exam: PRESENT: poor dentation Neck exam: ABSENT: carotid bruit, JVD, lymphadenopathy, thyromegaly Respiratory exam: PRESENT: clear to auscultation luis miguel. ABSENT: rales, rhonchi, wheezes Cardiovascular exam: PRESENT: RRR. ABSENT: diastolic murmur, rubs, systolic murmur Pulses: PRESENT: normal dorsalis pedis pul Vascular exam: PRESENT: normal capillary refill GI/Abdominal exam: PRESENT: normal bowel sounds, soft. ABSENT: distended, guarding, mass, organolmegaly, rebound, tenderness Rectal exam: PRESENT: deferred Extremities exam: PRESENT: full ROM. ABSENT: calf tenderness, clubbing, pedal edema Musculoskeletal exam: PRESENT: full ROM, normal inspection Neurological exam: PRESENT: alert, awake, oriented to person, oriented to place , CN II-XII grossly intact Psychiatric exam: PRESENT: appropriate affect, normal mood. ABSENT: homicidal ideation, suicidal ideation Skin exam: PRESENT: dry, intact, warm. ABSENT: cyanosis, rash Results Laboratory Results: 06/17/16 05:30 06/18/16 05:36 06/16/16 06/16/16 06/16/16 07:30 07:30 12:48 Creatine Kinase 121 104 CK-MB (CK-2) 1.88 Troponin I 0.031 06/16/16 06/16/16 06/16/16 12:48 18:30 18:30 Creatine Kinase 126 CK-MB (CK-2) 2.17 2.02 Troponin I 0.029 0.019 Impressions: Chest X-Ray 06/16/16 01:09 IMPRESSION: NO ACUTE RADIOGRAPHIC FINDING IN THE CHEST. Elbow X-Ray 06/16/16 01:09 IMPRESSION: NEGATIVE STUDY OF THE LEFT ELBOW. NO RADIOGRAPHIC EVIDENCE OF ACUTE INJURY. Head CT 06/16/16 01:09 IMPRESSION: CHRONIC CHANGES OF ATROPHY AND MICROVASCULAR ISCHEMIA. NO ACUTE PROCESS. Abdomen/Pelvis CT 06/16/16 04:25 IMPRESSION: Multiple small calcific densities are identified within the bladder consistent with bladder calculi. The bladder is distended. Other findings as noted above Qualifiers PATEINT BEING DISCHARGED WITH ANY OF THE FOLLOWING DIAGNOSIS?: No Plan Discharge Plan: Home with rolling walker home health nursing, physical therapy and social work Time Spent: Less than 30 Minutes
[2016-06-19 15:44] VITALS: BP 117/52
== END 2016-06-19 20:30 | disposition home or self-care (01) ==
LOC: ER 22:40 → EH 06-16 06:28 → 3S 06-16 10:10 → 4N 06-18 03:20
PROVIDERS: ADMIT Internal Medicine; ATTEND Internal Medicine
DX: I16.0 Hypertensive urgency (principal); R53.1 Weakness; R62.7 Adult failure to thrive; L89.152 Pressure ulcer of sacral region, stage 2; M17.11 Unilateral primary osteoarthritis, right knee; R00.0 Tachycardia, unspecified; R33.9 Retention of urine, unspecified; R10.9 Unspecified abdominal pain; S50.812A Abrasion of left forearm, initial encounter; W19.XXXA Unspecified fall, initial encounter; Y93.9 Activity, unspecified; Y92.9 Unspecified place or not applicable; Y99.9 Unspecified external cause status; N40.0 Benign prostatic hyperplasia without lower urinary tract symptoms; E78.5 Hyperlipidemia, unspecified; Z79.899 Other long term (current) drug therapy; Z23 Encounter for immunization
CPT/HCPCS: 93005; 99285; 96361; 51702; 96374; 36415 ×3; 84439; 82553; 82550; 83605; 83690; 84100; 84443; 85025 ×2; 80048 ×2; 80053; 81001; 84484; 84481; 71010; 73070; 70450; 74177; 90686; 93010; 97163; G0008; G0378 ×5; A9270 ×26; J1644 ×4; J3490; J3010; J7030; G8978; G8979; 90471

== ENCOUNTER 2016-06-22 09:20 | Inpatient (IN) | payer MEDICARE, OTHER ==
--- NOTE | 2016-06-22 11:00 | ER Document Report ---
ED General - General Mode of Arrival: Medic Information source: Patient Cannot obtain history due to: Dementia TRAVEL OUTSIDE OF THE [place] IN LAST 30 DAYS: No - HPI Onset: Other - see narrative <LEON MOCK - Last Filed: 06/22/16 12:14> <KARLA RANDOLPH - Last Filed: 06/22/16 14:02> - General Chief Complaint: General Weakness Stated Complaint: WEAKNESS Notes: Patient is an 81-year-old male that presents to the emergency department today secondary to "being a little wobbly". Patient is demented so history is very limited. Patient was discharged from this facility recently and was supposed to have a rolling walker, physical therapy, and a home health nurse come to his house but the patient reports that none of the above happened. Patient states "his son had a brain injury at and his has been messed up ever since the " and that his "just wants to spend his money". (LEON MOCK) - Related Data Allergies/Adverse Reactions: No Known Allergies Allergy (Verified 06/15/14 16:15) Past Medical History - General Information source: [facility] Records Cannot obtain history due to: Dementia - Social History Smoking Status: Never Smoker Cigarette use (# per day): No Frequency of alcohol use: None Drug Abuse: None Lives with: Family Family History: Reviewed & Not Pertinent, COPD, Hypertension - Past Medical History Cardiac Medical History: Reports: Hx Hypercholesterolemia, Hx Hypertension Pulmonary Medical History: Reports: Hx Pneumonia Past Surgical History: Reports: Hx Oral Surgery, Hx Orthopedic Surgery - patellar fracture - Immunizations Hx Diphtheria, Pertussis, Tetanus Vaccination: Yes Hx Pneumococcal Vaccination: 02/12/10 <LEON MOCK - Last Filed: 06/22/16 12:14> Review of Systems - Review of Systems -: Yes ROS unobtainable due to patient's medical condition - mostly because of dementia, states he is here because he "felt wobbly" <LEON MOCK - Last Filed: 06/22/16 12:14> Physical Exam - General General appearance: Alert In distress: None - HEENT Head: Normocephalic, Atraumatic Eyes: Normal Extraocular movements intact: Yes - Respiratory Respiratory status: No respiratory distress Chest status: Nontender Breath sounds: Normal Chest palpation: Normal - Cardiovascular Rhythm: Regular Heart sounds: Normal auscultation Murmur: No - Abdominal Inspection: Normal Distension: No distension Bowel sounds: Normal - Extremities General upper extremity: Normal inspection, Normal ROM. No: Edema General lower extremity: Normal inspection, Normal ROM. No: Edema - Neurological Cognition: Other - demented Speech: Normal - Psychological Associated symptoms: Other - demented - Skin Skin Temperature: Warm Skin Moisture: Dry Skin Color: Normal <LEON MOCK - Last Filed: 06/22/16 12:14> Course - Laboratory Result Diagrams: 06/22/16 09:45 06/22/16 09:45 <LEON MOCK - Last Filed: 06/22/16 12:14> - Laboratory Result Diagrams: 06/22/16 09:45 06/22/16 09:45 - EKG Interpretation by Ar EKG shows normal: Sinus rhythm, Mora, Intervals, ST-T Waves. abnormal: QRS Complexes - Possible old inferior wall infarct Rate: Normal - 61 Rhythm: NSR Heart block present: 1st Degree - Consults Emmy Hdz Time consulted: 13:50 Consulted provider: will come to ER <KARLA RANDOLPH - Last Filed: 06/22/16 14:02> - Vital Signs Vital signs: Temp Pulse Resp BP Pulse Ox 97.5 F 60 20 97/58 L 95 06/22/16 09:28 06/22/16 09:28 06/22/16 12:03 06/22/16 12:03 06/22/16 12:03 (LEON MOCK) (KARLA RANDOLPH) - Laboratory Laboratory results interpreted by wv: 06/22/16 06/22/16 09:45 11:27 Sodium 133.5 L Chloride 93 L BUN 24 H Glucose 142 H Creatine Kinase 48 L Urine Protein 100 H Urine Blood MODERATE H Ur Leukocyte Esterase TRACE H Urine Ascorbic Acid 20 H Discharge <LEON MOCK - Last Filed: 06/22/16 12:14> - Discharge Admitting Provider: Hospitalist Unit Admitted: Telemetry <KARLA RANDOLPH - Last Filed: 06/22/16 14:02> - Discharge Clinical Impression: Urinary tract infection Qualifiers: Urinary tract infection type: site unspecified Hematuria presence: with hematuria Qualified Code(s): N39.0 - Urinary tract infection, site not specified Dementia Qualifiers: Dementia type: unspecified type Dementia behavioral disturbance: without behavioral disturbance Qualified Code(s): F03.90 - Unspecified dementia without behavioral disturbance BPH (benign prostatic hyperplasia) Qualifiers: Prostatic enlargement morphology: unspecified morphology Lower urinary tract symptom presence: presence of symptoms unspecified Qualified Code(s): N40.0 - Benign prostatic hyperplasia without lower urinary tract symptoms Fall Qualifiers: Encounter type: initial encounter Qualified Code(s): W19.XXXA - Unspecified fall, initial encounter Condition: Stable Disposition: ADMITTED INPATIENT Referrals: CHARLIE FELIX MD [Primary Care Provider] - Follow up as needed Scribe Attestation: 06/22/16 14:01 I personally performed the services described in the documentation, reviewed and edited the documentation which was dictated to the scribe in my presence, and it accurately records my words and actions. (KARLA RANDOLPH) Scribe Documentation - Scribe Written by Scribe:: Vanesa Hennessy, [id number] 06/22/16 acting as scribe for :: Almaz <LEON MOCK - Last Filed: 06/22/16 12:14>
[2016-06-22 11:34] LABS: ABSOLUTE BASOPHILS # (AUTO) 0.1 10^3/uL (0.0-0.2); ABSOLUTE EOSINOPHILS # (AUTO) 0.3 10^3/uL (0.0-0.6); ABSOLUTE MONOCYTES (AUTO) 0.9 10^3/uL (0.1-1.4); ABSOLUTE NEUT (AUTO) 5.8 10^3/uL (1.7-8.2); EOSINOPHILS % (AUTO) 3.1 % (0-6); HEMATOCRIT 45.7 % (37.9-51.0); HEMOGLOBIN 15.7 g/dL (13.5-17.0); HGB HCT DIFFERENCE 1.4; LYMPHOCYTES % (AUTO) 21.8 % (13-45); MEAN CORPUSCULAR HEMOGLOBIN 32.1 pg (27.0-33.4); MEAN CORPUSCULAR HGB CONC 34.3 g/dL (32.0-36.0); MEAN CORPUSCULAR VOLUME 94 fl (80-97); MONOCYTES % (AUTO) 10.2 % (3-13); RED BLOOD COUNT 4.88 10^6/uL (4.35-5.55); RED CELL DISTRIBUTION WIDTH 12.8 % (11.5-14.0); SEGMENTED NEUTROPHILS % (AUTO) 63.9 % (42-78); WHITE BLOOD COUNT 9.1 10^3/uL (4.0-10.5)
[2016-06-22 11:49] LABS: AMORPHOUS SEDIMENT,URINE TRACE /HPF; APPEARANCE,URINE CLOUDY; BILIRUBIN,URINE NEGATIVE (NEGATIVE); GLUCOSE, URINE NEGATIVE (NEGATIVE); KETONES,URINE NEGATIVE (NEGATIVE); LEUKOCYTE ESTERASE,URINE TRACE (NEGATIVE); NITRITE,URINE NEGATIVE (NEGATIVE); PROTEIN,URINE 100 mg/dL (NEGATIVE); TRIPLE PHOSPHATE CRYSTAL,URINE MODERATE /HPF; URINE SPECIFIC GRAVITY 1.017; UROBILINOGEN,URINE NEGATIVE mg/dL (<2.0)
[2016-06-22 11:58] LABS: ALANINE AMINOTRANSFERASE 26 U/L (21-72); ALKALINE PHOSPHATASE 61 U/L (38-126); ANION GAP 12 (5-19); ASPARTATE AMINO TRANSFERASE 24 U/L (17-59); BILIRUBIN,TOTAL 0.8 mg/dL (0.2-1.3); BLOOD UREA NITROGEN 24 mg/dL (7-20); CALCIUM 9.5 mg/dL (8.4-10.2); CARBON DIOXIDE 29 mmol/L (22-30); CHLORIDE 93 mmol/L (98-107); CREATINE KINASE 48 U/L (55-170); CREATININE RESULT 0.91 mg/dL (0.52-1.25); GLUCOSE 142 mg/dL (75-110); POTASSIUM 4.5 mmol/L (3.6-5.0); SODIUM 133.5 mmol/L (137-145); TOTAL PROTEIN 7.1 g/dL (6.3-8.2)
[2016-06-22 12:09] LABS: CREATINE KINASE MB 0.64 ng/mL (<4.55)
[2016-06-22 12:10] LABS: TROPONIN I < 0.012 ng/mL
--- NOTE | 2016-06-22 13:42 | EKG REPORT ---
SEVERITY:- ABNORMAL ECG - SINUS RHYTHM FIRST DEGREE AV BLOCK PROBABLE INFERIOR INFARCT, OLD : Confirmed by: Fidel Alonzo MD 22-Jun-2016 13:42:42
[2016-06-22] MEDS ORDERED: MAGNESIUM HYDROXIDE SUSP 30 ML UDCUP PO PRN (14:26)
[2016-06-22] MEDS ORDERED: ONDANSETRON HCL INJ/PF 4 MG/2 ML SDV IV PRN (14:26)
[2016-06-22] MEDS: NORMAL SALINE 1000 ML 1,000 ML IV PRN ×2 (14:45→18:42)
[2016-06-22] MEDS ORDERED: (PENDING PHARMACY ID) (Cyclobenzaprine Hcl [Flexeril 5 Mg Tablet] 5 MG) PO PRN (14:57)
--- NOTE | 2016-06-22 15:18 | PDOC H&P ---
History of Present Illness Admission Date/PCP: CHARLIE FELIX MD Patient complains of: Generalized weakness History of Present Illness: ALYSE ÁLVAREZ is a 81 year old male, presents to the emergency room by EMS this morning after being called by family because of patient's generalized weakness and confusion. Patient was recently admitted to the hospital on 2016-10/01/2016, for altered mental status and weakness. He was admitted at that time on observation. He did not meet inpatient criteria. He was subsequently discharged with home health services, nursing and physical therapy. According to the patient he never had any visits since discharge. Today the patient complains of foul-smelling urine and increasing weakness. He is more confused than he was at discharge. He denies any shortness of breath, chest pain or dyspnea. There are no family members presently at the bedside. Past Medical History Cardiac Medical History: Reports: Hyperlipidema, Hypertension Pulmonary Medical History: Reports: Pneumonia EENT Medical History: Reports: None Neurological Medical History: Reports: None, Other Endocrine Medical History: Reports: None Renal/ Medical History: Reports: Other - BPH Malignancy Medical History: Reports: None GI Medical History: Reports: None Musculoskeltal Medical History: Reports: None Skin Medical History: Reports: None Psychiatric Medical History: Reports: Dementia Traumatic Medical History: Reports: None Hematology: Reports: None Infectious Medical History: Reports: None Past Surgical History Past Surgical History: Reports: Orthopedic Surgery - patellar fracture Social History Information Source: Patient Lives with: Family Smoking Status: Never Smoker Frequency of Alcohol Use: None Hx Recreational Drug Use: No Hx Prescription Drug Abuse: No - Advance Directive Surrogate healthcare decision maker:: Patient states his is his closest living family member. He has no advanced directives. Family History Family History: COPD, Hypertension Parental Family History Reviewed: Yes Children Family History Reviewed: Yes Sibling(s) Family History Reviewed.: Yes Medication/Allergy Home Medications: Cyclobenzaprine HCl [Flexeril 5 mg Tablet] 5 mg PO BIDP PRN 06/16/16 Finasteride [Proscar 5 mg Tablet] 5 mg PO DAILY 06/16/16 Lisinopril [Prinivil 10 mg Tablet] 10 mg PO BID 06/16/16 Acetaminophen [Tylenol 325 mg Tablet] 325 mg PO Q4HP PRN tablet 06/19/16 Finasteride [Proscar 5 mg Tablet] 5 mg PO DAILY #30 tablet 06/19/16 Hydrochlorothiazide [Hydrodiuril 25 mg Tablet] 25 mg PO DAILY #30 tablet Lisinopril [Prinivil 10 mg Tablet] 20 mg PO DAILY #30 tablet 06/19/16 Metoprolol Tartrate [Lopressor 50 mg Tablet] 50 mg PO Q12 #30 tablet 06/19/16 Simvastatin [Zocor 10 mg Tablet] 20 mg PO QHS #30 tablet 06/19/16 Tamsulosin HCl [Flomax 0.4 mg Cap.sr] 0.4 mg PO DAILY #30 cap.sr.24h 06/19/16 Tamsulosin HCl [Flomax 0.4 mg Cap.sr] 0.4 mg PO PCBRKFST #30 cap.sr.24h Allergies/Adverse Reactions: No Known Allergies Allergy (Verified 06/15/14 16:15) Review of Systems Constitutional: PRESENT: chills, fatigue, weakness, weight loss Eyes: ABSENT: visual disturbances Ears: PRESENT: hearing changes Cardiovascular: ABSENT: chest pain, dyspnea on exertion, edema, orthropnea, palpitations Respiratory: ABSENT: cough, hemoptysis Gastrointestinal: ABSENT: abdominal pain, constipation, diarrhea, hematemesis, hematochezia, nausea, vomiting Genitourinary: ABSENT: dysuria, hematuria Musculoskeletal: ABSENT: joint swelling Integumentary: ABSENT: rash, wounds Neurological: ABSENT: abnormal gait, abnormal speech, confusion, dizziness, focal weakness, syncope Psychiatric: ABSENT: anxiety, depression, homidical ideation, suicidal ideation Endocrine: ABSENT: cold intolerance, heat intolerance, polydipsia, polyuria Hematologic/Lymphatic: ABSENT: easy bleeding, easy bruising Physical Exam Vital Signs: Temp Pulse Resp BP Pulse Ox 97.5 F 60 20 97/58 L 95 06/22/16 09:28 06/22/16 09:28 06/22/16 12:03 06/22/16 12:03 06/22/16 12:03 Intake & Output 06/21/16 06/22/16 06/23/16 06:59 06:59 06:59 Weight 77.111 kg General appearance: PRESENT: no acute distress, well-developed, well-nourished Head exam: PRESENT: atraumatic, normocephalic Eye exam: PRESENT: conjunctiva pink, EOMI, PERRLA. ABSENT: scleral icterus Ear exam: PRESENT: bleeding Mouth exam: PRESENT: moist, tongue midline Neck exam: ABSENT: carotid bruit, JVD, lymphadenopathy, thyromegaly Respiratory exam: PRESENT: clear to auscultation luis miguel. ABSENT: rales, rhonchi, wheezes Cardiovascular exam: PRESENT: RRR. ABSENT: diastolic murmur, rubs, systolic murmur Vascular exam: PRESENT: normal capillary refill Rectal exam: PRESENT: deferred Extremities exam: PRESENT: full ROM. ABSENT: calf tenderness, clubbing, pedal edema Musculoskeletal exam: PRESENT: full ROM, normal inspection Neurological exam: PRESENT: alert, awake, oriented to person, oriented to place , CN II-XII grossly intact Psychiatric exam: PRESENT: appropriate affect, normal mood. ABSENT: homicidal ideation, suicidal ideation Skin exam: PRESENT: dry, intact, warm. ABSENT: cyanosis, rash Results Laboratory Results: 06/22/16 09:45 06/22/16 09:45 06/22/16 06/22/16 06/22/16 09:45 09:45 11:27 WBC 9.1 RBC 4.88 Hgb 15.7 Hct 45.7 MCV 94 MCH 32.1 MCHC 34.3 RDW 12.8 Plt Count 267 Seg Neutrophils % 63.9 Lymphocytes % 21.8 Monocytes % 10.2 Eosinophils % 3.1 Basophils % 1.0 Absolute Neutrophils 5.8 Absolute Lymphocytes 2.0 Absolute Monocytes 0.9 Absolute Eosinophils 0.3 Absolute Basophils 0.1 Sodium 133.5 L Potassium 4.5 Chloride 93 L Carbon Dioxide 29 Anion Gap 12 BUN 24 H Creatinine 0.91 Est GFR ( Amer) > 60 Est GFR (Non-Af Amer) > 60 Glucose 142 H Calcium 9.5 Total Bilirubin 0.8 AST 24 ALT 26 Alkaline Phosphatase 61 Total Protein 7.1 Albumin 4.0 Urine Color YELLOW Urine Appearance CLOUDY Urine pH 8.0 Ur Specific [place] 1.017 Urine Protein 100 H Urine Glucose (UA) NEGATIVE Urine Ketones NEGATIVE Urine Blood MODERATE H Urine Nitrite NEGATIVE Ur Leukocyte Esterase TRACE H Urine WBC (Auto) 78 Urine RBC (Auto) 142 06/22/16 06/22/16 09:45 09:45 Creatine Kinase 48 L CK-MB (CK-2) 0.64 Troponin I < 0.012 Impressions: Chest X-Ray 06/22/16 11:00 IMPRESSION: NO ACUTE RADIOGRAPHIC FINDING IN THE CHEST. Assessment & Plan - Diagnosis (1) UTI (urinary tract infection) Qualifiers: Urinary tract infection type: site unspecified Hematuria presence: with hematuria Qualified Code(s): N39.0 - Urinary tract infection, site not specified; R31.9 - Hematuria, unspecified Is this a current diagnosis for this admission?: YesPlan: Urinalysis positive. Culture pending. He smells of foul smelling urine. (2) BPH (benign prostatic hyperplasia) Qualifiers: Lower urinary tract symptom presence: symptoms present Is this a current diagnosis for this admission?: YesPlan: Unclear whether patient has taken any medications post discharge. Will check bladder scan to assess urinary retention (3) Sacral decubitus ulcer, stage II Is this a current diagnosis for this admission?: YesPlan: Wound does not appear infected at the present time. Nursing care per protocol. Turn q2h (4) Visual hallucination Is this a current diagnosis for this admission?: Yes (5) Hypertension Qualifiers: Hypertension type: essential hypertension Qualified Code(s): I10 - Essential (primary) hypertension Is this a current diagnosis for this admission?: YesPlan: Patient is presently borderline hypotensive. Will hold meds and assess (6) Hyponatremia Is this a current diagnosis for this admission?: YesPlan: Most likely from dehydration. Will hydrate gently and assess (7) Failure to thrive Qualifiers: Failure to thrive age range: in adult Qualified Code(s): R62.7 - Adult failure to thrive Is this a current diagnosis for this admission?: YesPlan: Rehydrate. Regular diet and supplements (8) DVT prophylaxis Is this a current diagnosis for this admission?: YesPlan: Heparin 5000 u sq q8h - Time Time Spent: 50 to 70 Minutes Critical Time spent with patient: 25-34 minutes Medications reviewed and adjusted accordingly: Yes - Inpatient Certification Based on my medical assessment, after consideration of the patient's comorbidities, presenting symptoms, or acuity I expect that the services needed warrant INPATIENT care.: Yes I certify that my determination is in accordance with my understanding of Medicare's requirements for reasonable and necessary INPATIENT services [42 CFR 412.3e].: Yes Medical Necessity: Failure to Improve With Outpatient Therapy, Need For IV Fluids, Risk of Complication if Not Cared For in Hospital
[2016-06-22] MEDS: CEFTRIAXONE 1 GM/D5W RTU 1 GM/50 ML RTUPB IV SCH (15:39)
[2016-06-22] MEDS: DOCUSATE SODIUM 100 MG CAPSULE PO SCH (18:42)
[2016-06-22] MEDS: SIMVASTATIN 10 MG TABLET PO SCH (22:02)
[2016-06-22] MEDS: METOPROLOL TARTRATE 50 MG TABLET PO SCH (22:02)
[2016-06-22] MEDS: HEPARIN SOD (PORCINE) 5,000 UNIT/ML 1 ML SYRINGE SUBCUT SCH (22:02)
[2016-06-23] MEDS: HEPARIN SOD (PORCINE) 5,000 UNIT/ML 1 ML SYRINGE SUBCUT SCH ×3 (06:03→21:27)
[2016-06-23 06:34] LABS: HEMATOCRIT 43.5 % (37.9-51.0); HEMOGLOBIN 15.1 g/dL (13.5-17.0); HGB HCT DIFFERENCE 1.8; MEAN CORPUSCULAR HEMOGLOBIN 32.4 pg (27.0-33.4); MEAN CORPUSCULAR HGB CONC 34.8 g/dL (32.0-36.0); MEAN CORPUSCULAR VOLUME 93 fl (80-97); RED BLOOD COUNT 4.67 10^6/uL (4.35-5.55); RED CELL DISTRIBUTION WIDTH 12.5 % (11.5-14.0); WHITE BLOOD COUNT 10.5 10^3/uL (4.0-10.5)
[2016-06-23 06:51] LABS: ANION GAP 12 (5-19); BLOOD UREA NITROGEN 20 mg/dL (7-20); CALCIUM 8.7 mg/dL (8.4-10.2); CARBON DIOXIDE 24 mmol/L (22-30); CHLORIDE 97 mmol/L (98-107); CREATININE RESULT 0.59 mg/dL (0.52-1.25); GLUCOSE 117 mg/dL (75-110); POTASSIUM 4.2 mmol/L (3.6-5.0); SODIUM 132.6 mmol/L (137-145)
[2016-06-23] MEDS: DOCUSATE SODIUM 100 MG CAPSULE PO SCH ×2 (09:09→17:19)
[2016-06-23] MEDS: METOPROLOL TARTRATE 50 MG TABLET PO SCH ×2 (09:10→21:27)
--- NOTE | 2016-06-23 09:53 | PDOC PROGRESS REPORT ---
Subjective Progress Note for:: 06/23/16 Subjective:: The patient is currently seen on rounds. The patient is quite confused. There' s been no reported episodes of vomiting nor diarrhea. Patient smells of foul urine. Uncertain of the patient's bladder scan results. Physical Exam Vital Signs: Temp Pulse Resp BP Pulse Ox 97.3 F 70 16 133/52 H 97 06/23/16 08:16 06/23/16 08:16 06/23/16 08:16 06/23/16 08:16 06/23/16 08:16 Intake & Output 06/21/16 06/22/16 06/23/16 23:59 23:59 23:59 Intake Total 320 200 Output Total 200 Balance 120 200 Weight 76.3 kg 76.2 kg General appearance: PRESENT: cooperative, disheveled, thin Exam: Chronically ill-appearing, frail Head exam: PRESENT: atraumatic, normocephalic Eye exam: PRESENT: conjunctiva pale, EOMI, PERRLA. ABSENT: scleral icterus Ear exam: PRESENT: normal external ear exam Mouth exam: PRESENT: moist, tongue midline Neck exam: ABSENT: carotid bruit, JVD, lymphadenopathy, thyromegaly Respiratory exam: PRESENT: symmetrical, unlabored. ABSENT: rales, rhonchi, tachypnea, wheezes Cardiovascular exam: PRESENT: RRR. ABSENT: diastolic murmur, rubs, systolic murmur Pulses: PRESENT: normal dorsalis pedis pul Vascular exam: PRESENT: normal capillary refill GI/Abdominal exam: PRESENT: normal bowel sounds, soft. ABSENT: distended, guarding, mass, organolmegaly, rebound, tenderness Rectal exam: PRESENT: deferred Extremities exam: PRESENT: full ROM. ABSENT: calf tenderness, clubbing, pedal edema Neurological exam: PRESENT: alert, altered, awake, oriented to person. ABSENT: motor sensory deficit Psychiatric exam: PRESENT: anxious, unusual affect. ABSENT: homicidal ideation , suicidal ideation Skin exam: PRESENT: dry, intact, warm. ABSENT: cyanosis, rash Results Laboratory Results: 06/23/16 06:16 06/23/16 06:16 06/23/16 06/23/16 06:16 06:16 WBC 10.5 RBC 4.67 Hgb 15.1 Hct 43.5 MCV 93 MCH 32.4 MCHC 34.8 RDW 12.5 Plt Count 239 Sodium 132.6 L Potassium 4.2 Chloride 97 L Carbon Dioxide 24 Anion Gap 12 BUN 20 Creatinine 0.59 Est GFR ( Amer) > 60 Est GFR (Non-Af Amer) > 60 Glucose 117 H Calcium 8.7 Impressions: Chest X-Ray 06/22/16 11:00 IMPRESSION: NO ACUTE RADIOGRAPHIC FINDING IN THE CHEST. Assessment & Plan - Diagnosis (1) UTI (urinary tract infection) Qualifiers: Urinary tract infection type: site unspecified Hematuria presence: with hematuria Qualified Code(s): N39.0 - Urinary tract infection, site not specified Is this a current diagnosis for this admission?: YesPlan: Will continue current antibiotic coverage. Currently awaiting urine culture. (2) Metabolic encephalopathy Is this a current diagnosis for this admission?: YesPlan: Secondary to #1 as well as underlying dementia. (3) BPH (benign prostatic hyperplasia) Qualifiers: Prostatic enlargement morphology: unspecified morphology Lower urinary tract symptom presence: presence of symptoms unspecified Qualified Code(s): N40.0 - Benign prostatic hyperplasia without lower urinary tract symptoms Is this a current diagnosis for this admission?: YesPlan: Will continue the patient's home medications. Will obtain bladder scans every 4 hours and document. (4) Dementia Qualifiers: Dementia type: unspecified type Dementia behavioral disturbance: without behavioral disturbance Qualified Code(s): F03.90 - Unspecified dementia without behavioral disturbance (5) Hyponatremia Is this a current diagnosis for this admission?: YesPlan: Most likely secondary to hypovolemia hyponatremia. Will continue IV fluids and repeat in the a.m. (6) Sacral decubitus ulcer, stage II Is this a current diagnosis for this admission?: Yes (7) BPH (benign prostatic hyperplasia) Qualifiers: Lower urinary tract symptom presence: symptoms present Is this a current diagnosis for this admission?: Yes (8) Failure to thrive Qualifiers: Failure to thrive age range: in adult Qualified Code(s): R62.7 - Adult failure to thrive Is this a current diagnosis for this admission?: Yes (9) Hypertension Qualifiers: Hypertension type: essential hypertension Qualified Code(s): I10 - Essential (primary) hypertension Is this a current diagnosis for this admission?: YesPlan: Will continue current medications blood pressures and good range. (10) DVT prophylaxis Is this a current diagnosis for this admission?: Yes - Time Time Spent with patient: 25-34 minutes Medications reviewed and adjusted accordingly: Yes Anticipated discharge: SNF Within: within 48 hours, when bed available
[2016-06-23] MEDS: NORMAL SALINE 1000 ML 1,000 ML IV PRN (14:38)
[2016-06-23] MEDS: CEFTRIAXONE 1 GM/D5W RTU 1 GM/50 ML RTUPB IV SCH (16:01)
[2016-06-23] MEDS ORDERED: TAMSULOSIN HCL 0.4 MG CAP.SR.24H PO SCH (18:00)
[2016-06-23] MEDS: SIMVASTATIN 10 MG TABLET PO SCH (21:26)
[2016-06-23] MEDS: ACETAMINOPHEN 325 MG TABLET PO PRN (21:27)
[2016-06-23] MEDS ORDERED: FINASTERIDE 5 MG TABLET PO SCH (22:00)
[2016-06-24] MEDS: HEPARIN SOD (PORCINE) 5,000 UNIT/ML 1 ML SYRINGE SUBCUT SCH ×3 (05:17→21:14)
[2016-06-24] MEDS: NORMAL SALINE 1000 ML 1,000 ML IV PRN (07:43)
[2016-06-24 07:47] LABS: HEMATOCRIT 41.1 % (37.9-51.0); HEMOGLOBIN 14.1 g/dL (13.5-17.0); HGB HCT DIFFERENCE 1.2; MEAN CORPUSCULAR HEMOGLOBIN 31.9 pg (27.0-33.4); MEAN CORPUSCULAR HGB CONC 34.4 g/dL (32.0-36.0); MEAN CORPUSCULAR VOLUME 93 fl (80-97); RED BLOOD COUNT 4.43 10^6/uL (4.35-5.55); RED CELL DISTRIBUTION WIDTH 12.3 % (11.5-14.0); WHITE BLOOD COUNT 7.9 10^3/uL (4.0-10.5)
[2016-06-24 08:08] LABS: ANION GAP 10 (5-19); BLOOD UREA NITROGEN 11 mg/dL (7-20); CALCIUM 8.8 mg/dL (8.4-10.2); CARBON DIOXIDE 26 mmol/L (22-30); CHLORIDE 98 mmol/L (98-107); CREATININE RESULT 0.67 mg/dL (0.52-1.25); GLUCOSE 108 mg/dL (75-110); POTASSIUM 3.8 mmol/L (3.6-5.0); SODIUM 134.2 mmol/L (137-145)
[2016-06-24] MEDS ORDERED: ONDANSETRON 4 MG TAB.RAPDIS PO PRN (09:09)
--- NOTE | 2016-06-24 09:12 | PDOC PROGRESS REPORT ---
Subjective Progress Note for:: 06/24/16 Subjective:: The patient is currently seen on rounds. The patient is much more oriented than he was yesterday. The patient is not combative and is aware of his location. The patient is still confused on details. There's been no reported episodes of vomiting nor diarrhea. Uncertain of the patient's bladder scan results. Physical Exam Vital Signs: Temp Pulse Resp BP Pulse Ox 97.5 F 70 16 140/55 H 96 06/24/16 07:25 06/24/16 07:25 06/24/16 07:25 06/24/16 07:25 06/24/16 07:25 Intake & Output 06/22/16 06/23/16 06/24/16 23:59 23:59 23:59 Intake Total 320 1456 0 Output Total 200 Balance 120 1456 0 Weight 76.3 kg 76.2 kg 76.4 kg General appearance: PRESENT: cooperative, disheveled, thin Exam: Chronically ill-appearing, frail Head exam: PRESENT: atraumatic, normocephalic Eye exam: PRESENT: conjunctiva pale, EOMI, PERRLA. ABSENT: scleral icterus Ear exam: PRESENT: normal external ear exam Mouth exam: PRESENT: moist, tongue midline Neck exam: ABSENT: carotid bruit, JVD, lymphadenopathy, thyromegaly Respiratory exam: PRESENT: symmetrical, unlabored. ABSENT: rales, rhonchi, tachypnea, wheezes Cardiovascular exam: PRESENT: RRR. ABSENT: diastolic murmur, rubs, systolic murmur Pulses: PRESENT: normal dorsalis pedis pul Vascular exam: PRESENT: normal capillary refill GI/Abdominal exam: PRESENT: normal bowel sounds, soft. ABSENT: distended, guarding, mass, organolmegaly, rebound, tenderness Rectal exam: PRESENT: deferred Extremities exam: PRESENT: full ROM. ABSENT: calf tenderness, clubbing, pedal edema Neurological exam: PRESENT: alert, little delayed, awake, oriented to person. ABSENT: motor sensory deficit Psychiatric exam: PRESENT: anxious, unusual affect. ABSENT: homicidal ideation , suicidal ideation Skin exam: PRESENT: dry, intact, warm. ABSENT: cyanosis, rash Results Laboratory Results: 06/24/16 06:46 06/24/16 06:46 06/24/16 06/24/16 06:46 06:46 WBC 7.9 RBC 4.43 Hgb 14.1 Hct 41.1 MCV 93 MCH 31.9 MCHC 34.4 RDW 12.3 Plt Count 239 Sodium 134.2 L Potassium 3.8 Chloride 98 Carbon Dioxide 26 Anion Gap 10 BUN 11 Creatinine 0.67 Est GFR ( Amer) > 60 Est GFR (Non-Af Amer) > 60 Glucose 108 Calcium 8.8 Impressions: Chest X-Ray 06/22/16 11:00 IMPRESSION: NO ACUTE RADIOGRAPHIC FINDING IN THE CHEST. Assessment & Plan - Diagnosis (1) UTI (urinary tract infection) Qualifiers: Urinary tract infection type: site unspecified Hematuria presence: with hematuria Qualified Code(s): N39.0 - Urinary tract infection, site not specified Is this a current diagnosis for this admission?: YesPlan: Will continue current antibiotic coverage. Currently awaiting urine culture. (2) Metabolic encephalopathy Is this a current diagnosis for this admission?: YesPlan: Secondary to #1 as well as underlying dementia. (3) BPH (benign prostatic hyperplasia) Qualifiers: Prostatic enlargement morphology: unspecified morphology Lower urinary tract symptom presence: presence of symptoms unspecified Qualified Code(s): N40.0 - Benign prostatic hyperplasia without lower urinary tract symptoms Is this a current diagnosis for this admission?: YesPlan: Will continue the patient's home medications. Will obtain bladder scans every 4 hours and document. (4) Dementia Qualifiers: Dementia type: unspecified type Dementia behavioral disturbance: without behavioral disturbance Qualified Code(s): F03.90 - Unspecified dementia without behavioral disturbance Is this a current diagnosis for this admission?: Yes (5) Hyponatremia Is this a current diagnosis for this admission?: YesPlan: Most likely secondary to hypovolemia hyponatremia. This is improved. Will discontinue thiazide diuretics (6) Sacral decubitus ulcer, stage II Is this a current diagnosis for this admission?: Yes (7) BPH (benign prostatic hyperplasia) Qualifiers: Lower urinary tract symptom presence: symptoms present Is this a current diagnosis for this admission?: YesPlan: Will continue home medications. (8) Failure to thrive Qualifiers: Failure to thrive age range: in adult Qualified Code(s): R62.7 - Adult failure to thrive Is this a current diagnosis for this admission?: Yes (9) Hypertension Qualifiers: Hypertension type: essential hypertension Qualified Code(s): I10 - Essential (primary) hypertension Is this a current diagnosis for this admission?: YesPlan: Will continue current medications blood pressures and good range. (10) DVT prophylaxis Is this a current diagnosis for this admission?: Yes - Time Time Spent with patient: 25-34 minutes Medications reviewed and adjusted accordingly: Yes Anticipated discharge: SNF Within: when bed available
[2016-06-24] MEDS: LISINOPRIL 10 MG TABLET PO SCH (09:54)
[2016-06-24] MEDS: FINASTERIDE 5 MG TABLET PO SCH (09:54)
[2016-06-24] MEDS: METOPROLOL TARTRATE 50 MG TABLET PO SCH ×2 (09:55→21:14)
[2016-06-24] MEDS: DOCUSATE SODIUM 100 MG CAPSULE PO SCH ×2 (09:55→18:14)
[2016-06-24] MEDS: CEFTRIAXONE 1 GM/D5W RTU 1 GM/50 ML RTUPB IV SCH (17:08)
[2016-06-24] MEDS: TAMSULOSIN HCL 0.4 MG CAP.SR.24H PO SCH (18:13)
[2016-06-24] MEDS: SIMVASTATIN 10 MG TABLET PO SCH (21:14)
[2016-06-25] MEDS: HEPARIN SOD (PORCINE) 5,000 UNIT/ML 1 ML SYRINGE SUBCUT SCH ×3 (06:38→21:08)
[2016-06-25 06:41] LABS: HEMATOCRIT 40.8 % (37.9-51.0); HGB HCT DIFFERENCE 1.2; MEAN CORPUSCULAR HEMOGLOBIN 31.8 pg (27.0-33.4); MEAN CORPUSCULAR HGB CONC 34.3 g/dL (32.0-36.0); MEAN CORPUSCULAR VOLUME 93 fl (80-97); RED CELL DISTRIBUTION WIDTH 12.7 % (11.5-14.0); WHITE BLOOD COUNT 8.4 10^3/uL (4.0-10.5)
[2016-06-25 06:51] LABS: ANION GAP 11 (5-19); BLOOD UREA NITROGEN 11 mg/dL (7-20); CALCIUM 9.1 mg/dL (8.4-10.2); CARBON DIOXIDE 23 mmol/L (22-30); CHLORIDE 98 mmol/L (98-107); GLUCOSE 104 mg/dL (75-110); SODIUM 131.9 mmol/L (137-145)
[2016-06-25] MEDS: LISINOPRIL 10 MG TABLET PO SCH (09:11)
[2016-06-25] MEDS: FINASTERIDE 5 MG TABLET PO SCH (09:12)
[2016-06-25] MEDS: METOPROLOL TARTRATE 50 MG TABLET PO SCH ×2 (09:12→21:08)
[2016-06-25] MEDS: DOCUSATE SODIUM 100 MG CAPSULE PO SCH ×2 (09:12→17:30)
--- NOTE | 2016-06-25 14:27 | PDOC PROGRESS REPORT ---
Subjective Progress Note for:: 06/25/16 Subjective:: The patient is currently seen on rounds. The patient is more confused yesterday. Much more somnolent. The patient is not combative and is aware of his location. There's been no reported episodes of vomiting nor diarrhea. The patient is found to have significant urinary retention and is being bladder scan every 6 hours and This needed. Physical Exam Vital Signs: Temp Pulse Resp BP Pulse Ox 97.7 F 66 22 H 156/60 H 93 06/25/16 11:46 06/25/16 11:46 06/25/16 11:46 06/25/16 11:46 06/25/16 11:46 Intake & Output 06/23/16 06/24/16 06/25/16 23:59 23:59 23:59 Intake Total 1456 560 400 Balance 1456 560 400 Weight 76.2 kg 76.2 kg General appearance: PRESENT: cooperative, disheveled, thin Exam: Chronically ill-appearing, frail Head exam: PRESENT: atraumatic, normocephalic Eye exam: PRESENT: conjunctiva pale, EOMI, PERRLA. ABSENT: scleral icterus Ear exam: PRESENT: normal external ear exam Mouth exam: PRESENT: moist, tongue midline Neck exam: ABSENT: carotid bruit, JVD, lymphadenopathy, thyromegaly Respiratory exam: PRESENT: symmetrical, unlabored. ABSENT: rales, rhonchi, tachypnea, wheezes Cardiovascular exam: PRESENT: RRR. ABSENT: diastolic murmur, rubs, systolic murmur Pulses: PRESENT: normal dorsalis pedis pul Vascular exam: PRESENT: normal capillary refill GI/Abdominal exam: PRESENT: normal bowel sounds, soft. ABSENT: distended, guarding, mass, organolmegaly, rebound, tenderness Rectal exam: PRESENT: deferred Extremities exam: PRESENT: full ROM. ABSENT: calf tenderness, clubbing, pedal edema Neurological exam: PRESENT: alert, altered, awake, oriented to person. ABSENT: motor sensory deficit Psychiatric exam: PRESENT: anxious, unusual affect. ABSENT: homicidal ideation , suicidal ideation Skin exam: PRESENT: dry, intact, warm. ABSENT: cyanosis, rash Results Laboratory Results: 06/25/16 05:55 06/25/16 05:55 06/25/16 06/25/16 05:55 05:55 WBC 8.4 RBC 4.40 Hgb 14.0 Hct 40.8 MCV 93 MCH 31.8 MCHC 34.3 RDW 12.7 Plt Count 242 Sodium 131.9 L Potassium 4.0 Chloride 98 Carbon Dioxide 23 Anion Gap 11 BUN 11 Creatinine 0.60 Est GFR ( Amer) > 60 Est GFR (Non-Af Amer) > 60 Glucose 104 Calcium 9.1 Impressions: Chest X-Ray 06/22/16 11:00 IMPRESSION: NO ACUTE RADIOGRAPHIC FINDING IN THE CHEST. Assessment & Plan - Diagnosis (1) UTI (urinary tract infection) Qualifiers: Urinary tract infection type: site unspecified Hematuria presence: with hematuria Qualified Code(s): N39.0 - Urinary tract infection, site not specified Is this a current diagnosis for this admission?: YesPlan: Will continue current antibiotic coverage. Currently awaiting urine culture. (2) Urinary retention due to benign prostatic hyperplasia Is this a current diagnosis for this admission?: Yes (3) Metabolic encephalopathy Is this a current diagnosis for this admission?: YesPlan: Secondary to #1 as well as underlying dementia. (4) BPH (benign prostatic hyperplasia) Qualifiers: Prostatic enlargement morphology: unspecified morphology Lower urinary tract symptom presence: presence of symptoms unspecified Qualified Code(s): N40.0 - Benign prostatic hyperplasia without lower urinary tract symptoms Is this a current diagnosis for this admission?: YesPlan: Will continue the patient's home medications. Will obtain bladder scans every 4 hours and document. (5) Dementia Qualifiers: Dementia type: unspecified type Dementia behavioral disturbance: without behavioral disturbance Qualified Code(s): F03.90 - Unspecified dementia without behavioral disturbance Is this a current diagnosis for this admission?: Yes (6) Hyponatremia Is this a current diagnosis for this admission?: YesPlan: Most likely secondary to hypovolemia hyponatremia. This is improved. Will discontinue thiazide diuretics (7) Sacral decubitus ulcer, stage II Is this a current diagnosis for this admission?: Yes (8) BPH (benign prostatic hyperplasia) Qualifiers: Lower urinary tract symptom presence: symptoms present Is this a current diagnosis for this admission?: YesPlan: Will continue home medications. (9) Failure to thrive Qualifiers: Failure to thrive age range: in adult Qualified Code(s): R62.7 - Adult failure to thrive Is this a current diagnosis for this admission?: Yes (10) Hypertension Qualifiers: Hypertension type: essential hypertension Qualified Code(s): I10 - Essential (primary) hypertension Is this a current diagnosis for this admission?: YesPlan: Will continue current medications blood pressures and good range. (11) DVT prophylaxis Is this a current diagnosis for this admission?: Yes - Time Time Spent with patient: 25-34 minutes Medications reviewed and adjusted accordingly: Yes Anticipated discharge: SNF Within: when bed available
[2016-06-25] MEDS: CEFTRIAXONE 1 GM/D5W RTU 1 GM/50 ML RTUPB IV SCH (15:35)
[2016-06-25] MEDS: TAMSULOSIN HCL 0.4 MG CAP.SR.24H PO SCH (17:30)
[2016-06-25] MEDS: SIMVASTATIN 10 MG TABLET PO SCH (21:08)
[2016-06-25] MEDS: ACETAMINOPHEN 325 MG TABLET PO PRN (21:08)
[2016-06-26] MEDS: HEPARIN SOD (PORCINE) 5,000 UNIT/ML 1 ML SYRINGE SUBCUT SCH ×3 (06:11→21:55)
[2016-06-26] MEDS: FINASTERIDE 5 MG TABLET PO SCH (10:39)
[2016-06-26] MEDS: METOPROLOL TARTRATE 50 MG TABLET PO SCH ×2 (10:39→21:55)
[2016-06-26] MEDS: DOCUSATE SODIUM 100 MG CAPSULE PO SCH ×2 (10:40→17:13)
[2016-06-26] MEDS: LISINOPRIL 10 MG TABLET PO SCH (10:40)
--- NOTE | 2016-06-26 13:38 | PDOC PROGRESS REPORT ---
Subjective Progress Note for:: 06/26/16 Subjective:: The patient is currently seen on rounds. The patient is more confused yesterday. Much more somnolent. The patient is not combative and is aware of his location. There's been no reported episodes of vomiting nor diarrhea. The patient is found to have significant urinary retention and is being bladder scan every 6 hours and cathed needed. Physical Exam Vital Signs: Temp Pulse Resp BP Pulse Ox 97.4 F 65 16 119/52 L 94 06/26/16 11:10 06/26/16 11:10 06/26/16 11:10 06/26/16 11:10 06/26/16 11:10 Intake & Output 06/24/16 06/25/16 06/26/16 23:59 23:59 23:59 Intake Total 560 1223 350 Output Total 890 450 Balance 560 333 -100 Weight 76.2 kg 76.9 kg General appearance: PRESENT: cooperative, disheveled, thin Exam: Chronically ill-appearing, frail Head exam: PRESENT: atraumatic, normocephalic Eye exam: PRESENT: conjunctiva pale, EOMI, PERRLA. ABSENT: scleral icterus Ear exam: PRESENT: normal external ear exam Mouth exam: PRESENT: moist, tongue midline Neck exam: ABSENT: carotid bruit, JVD, lymphadenopathy, thyromegaly Respiratory exam: PRESENT: symmetrical, unlabored. ABSENT: rales, rhonchi, tachypnea, wheezes Cardiovascular exam: PRESENT: RRR. ABSENT: diastolic murmur, rubs, systolic murmur Pulses: PRESENT: normal dorsalis pedis pul Vascular exam: PRESENT: normal capillary refill GI/Abdominal exam: PRESENT: normal bowel sounds, soft. ABSENT: distended, guarding, mass, organolmegaly, rebound, tenderness Rectal exam: PRESENT: deferred Extremities exam: PRESENT: full ROM. ABSENT: calf tenderness, clubbing, pedal edema Neurological exam: PRESENT: alert, altered, awake, oriented to person. ABSENT: motor sensory deficit Psychiatric exam: PRESENT: anxious, unusual affect. ABSENT: homicidal ideation , suicidal ideation Skin exam: PRESENT: dry, intact, warm. ABSENT: cyanosis, rash Results Laboratory Results: 06/25/16 05:55 06/25/16 05:55 Impressions: Chest X-Ray 06/22/16 11:00 IMPRESSION: NO ACUTE RADIOGRAPHIC FINDING IN THE CHEST. Assessment & Plan - Diagnosis (1) UTI (urinary tract infection) Qualifiers: Urinary tract infection type: site unspecified Hematuria presence: with hematuria Qualified Code(s): N39.0 - Urinary tract infection, site not specified Is this a current diagnosis for this admission?: YesPlan: Will continue current antibiotic coverage. Currently awaiting urine culture. (2) Urinary retention due to benign prostatic hyperplasia Is this a current diagnosis for this admission?: Yes (3) Metabolic encephalopathy Is this a current diagnosis for this admission?: YesPlan: Secondary to #1 as well as underlying dementia. (4) BPH (benign prostatic hyperplasia) Qualifiers: Prostatic enlargement morphology: unspecified morphology Lower urinary tract symptom presence: presence of symptoms unspecified Qualified Code(s): N40.0 - Benign prostatic hyperplasia without lower urinary tract symptoms Is this a current diagnosis for this admission?: YesPlan: Will continue the patient's home medications. Will obtain bladder scans every 4 hours and document. (5) Dementia Qualifiers: Dementia type: unspecified type Dementia behavioral disturbance: without behavioral disturbance Qualified Code(s): F03.90 - Unspecified dementia without behavioral disturbance Is this a current diagnosis for this admission?: Yes (6) Hyponatremia Is this a current diagnosis for this admission?: YesPlan: Most likely secondary to hypovolemia hyponatremia. This is improved. Will discontinue thiazide diuretics (7) Sacral decubitus ulcer, stage II Is this a current diagnosis for this admission?: Yes (8) BPH (benign prostatic hyperplasia) Qualifiers: Lower urinary tract symptom presence: symptoms present Is this a current diagnosis for this admission?: YesPlan: Will continue home medications. (9) Failure to thrive Qualifiers: Failure to thrive age range: in adult Qualified Code(s): R62.7 - Adult failure to thrive Is this a current diagnosis for this admission?: Yes (10) Hypertension Qualifiers: Hypertension type: essential hypertension Qualified Code(s): I10 - Essential (primary) hypertension Is this a current diagnosis for this admission?: YesPlan: Will continue current medications blood pressures and good range. (11) DVT prophylaxis Is this a current diagnosis for this admission?: Yes - Time Time Spent with patient: 25-34 minutes Medications reviewed and adjusted accordingly: Yes Anticipated discharge: SNF Within: within 48 hours
[2016-06-26] MEDS: CEFTRIAXONE 1 GM/D5W RTU 1 GM/50 ML RTUPB IV SCH (17:13)
[2016-06-26] MEDS: TAMSULOSIN HCL 0.4 MG CAP.SR.24H PO SCH (17:13)
[2016-06-26] MEDS: SIMVASTATIN 10 MG TABLET PO SCH (21:55)
[2016-06-27] MEDS: ACETAMINOPHEN 325 MG TABLET PO PRN (05:30)
[2016-06-27] MEDS: HEPARIN SOD (PORCINE) 5,000 UNIT/ML 1 ML SYRINGE SUBCUT SCH ×2 (05:53→14:51)
[2016-06-27] MEDS: LISINOPRIL 10 MG TABLET PO SCH (10:40)
[2016-06-27] MEDS: FINASTERIDE 5 MG TABLET PO SCH (10:41)
[2016-06-27] MEDS: METOPROLOL TARTRATE 50 MG TABLET PO SCH (10:41)
[2016-06-27] MEDS: DOCUSATE SODIUM 100 MG CAPSULE PO SCH ×2 (10:41→17:25)
--- NOTE | 2016-06-27 11:02 | PDOC DISCHARGE SUMMARY ---
General - Admit/Disc Date/PCP Admission Date/Primary Care Provider: 06/22/16 14:26 CHARLIE FELIX MD Discharge Date: 06/27/16 - Discharge Diagnosis (1) Aerococcus Urinae UTI Is this a current diagnosis for this admission?: Yes (2) UTI (urinary tract infection) Is this a current diagnosis for this admission?: Yes (3) Urinary retention due to benign prostatic hyperplasia Is this a current diagnosis for this admission?: Yes (4) Metabolic encephalopathy Is this a current diagnosis for this admission?: Yes (5) BPH (benign prostatic hyperplasia) Is this a current diagnosis for this admission?: Yes (6) Dementia Is this a current diagnosis for this admission?: Yes (7) Hyponatremia Is this a current diagnosis for this admission?: Yes (8) Sacral decubitus ulcer, stage II Is this a current diagnosis for this admission?: Yes (9) BPH (benign prostatic hyperplasia) Is this a current diagnosis for this admission?: Yes (10) Failure to thrive Is this a current diagnosis for this admission?: Yes (11) Hypertension Is this a current diagnosis for this admission?: Yes (12) DVT prophylaxis Is this a current diagnosis for this admission?: Yes - Additional Information Resuscitation Status: Full Code Home Medications: Finasteride [Proscar 5 mg Tablet] 5 mg PO DAILY 06/22/16 Lisinopril [Prinivil 10 mg Tablet] 20 mg PO DAILY 06/22/16 Metoprolol Tartrate [Lopressor 50 mg Tablet] 50 mg PO Q12 06/22/16 Simvastatin [Zocor 10 mg Tablet] 20 mg PO QHS 06/22/16 Tamsulosin HCl [Flomax 0.4 mg Cap.sr] 0.4 mg PO DAILY 06/22/16 Cefuroxime Axetil [Ceftin 500 mg Tablet] 500 mg PO Q12 #9 tablet 06/27/16 Docusate Sodium [Colace 100 mg Capsule] 100 mg PO BID #0 capsule 06/27/16 Additional Information: In and out catheter every 6 hours as needed if symptomatic History of Present Illness Patient complains of: Weakness History of Present Illness: ALYSE ÁLVAREZ is a 81 year old male who presented to the emergency room by EMS this morning after being called by family because of patient's generalized weakness and confusion. Patient was recently admitted to the hospital on 2016-10/01/2016, for altered mental status and weakness. He was admitted at that time on observation. He did not meet inpatient criteria. He was subsequently discharged with home health services, nursing and physical therapy. According to the patient he never had any visits since discharge. The patient complained of foul-smelling urine and increasing weakness. He was more confused than he was at discharge. He denied any shortness of breath, chest pain or dyspnea. There are no family members presently at the bedside. Hospital Course Hospital Course: The patient was admitted to continuous telemetry unit. Urine analysis and culture was obtained. The patient had findings suggestive of a urinary tract infection. Patient's urine culture revealed Aerococcus which was sensitive to ceftriaxone and the patient received IV antibiotic coverage for days. The patient's was noted to have evidence of urinary retention on bladder scan. The patient has required straight catheter on 2 episodes during his stay. The patient's mentation is much improved where he appears to be at his baseline dementia. Physical Exam Vital Signs: Temp Pulse Resp BP Pulse Ox 97.3 F 63 14 117/54 L 94 06/27/16 08:00 06/27/16 08:00 06/27/16 08:00 06/27/16 08:00 06/27/16 08:00 Intake & Output 06/25/16 06/26/16 06/27/16 23:59 23:59 23:59 Intake Total 1223 1205 830 Output Total 890 950 Balance 333 255 830 Weight 75.6 kg General appearance: PRESENT: cooperative, disheveled, thin Exam: Chronically ill-appearing, frail Head exam: PRESENT: atraumatic, normocephalic Eye exam: PRESENT: conjunctiva pale, EOMI, PERRLA. ABSENT: scleral icterus Ear exam: PRESENT: normal external ear exam Mouth exam: PRESENT: moist, tongue midline Neck exam: ABSENT: carotid bruit, JVD, lymphadenopathy, thyromegaly Respiratory exam: PRESENT: symmetrical, unlabored. ABSENT: rales, rhonchi, tachypnea, wheezes Cardiovascular exam: PRESENT: RRR. ABSENT: diastolic murmur, rubs, systolic murmur Pulses: PRESENT: normal dorsalis pedis pul Vascular exam: PRESENT: normal capillary refill GI/Abdominal exam: PRESENT: normal bowel sounds, soft. ABSENT: distended, guarding, mass, organolmegaly, rebound, tenderness Rectal exam: PRESENT: deferred Extremities exam: PRESENT: full ROM. ABSENT: calf tenderness, clubbing, pedal edema Neurological exam: PRESENT: alert, altered, awake, oriented to person. ABSENT: motor sensory deficit Psychiatric exam: PRESENT: anxious, unusual affect. ABSENT: homicidal ideation , suicidal ideation Skin exam: PRESENT: dry, intact, warm. ABSENT: cyanosis, rash Results Laboratory Results: Labs- Last Values WBC 8.4 10^3/uL (4.0-10.5) 06/25/16 05:55 RBC 4.40 10^6/uL (4.35-5.55) 06/25/16 05:55 Hgb 14.0 g/dL (13.5-17.0) 06/25/16 05:55 Hct 40.8 % (37.9-51.0) 06/25/16 05:55 MCV 93 fl (80-97) 06/25/16 05:55 MCH 31.8 pg (27.0-33.4) 06/25/16 05:55 MCHC 34.3 g/dL (32.0-36.0) 06/25/16 05:55 RDW 12.7 % (11.5-14.0) 06/25/16 05:55 Plt Count 242 10^3/uL (150-450) 06/25/16 05:55 Seg Neutrophils % 63.9 % (42-78) 06/22/16 09:45 Lymphocytes % 21.8 % (13-45) 06/22/16 09:45 Monocytes % 10.2 % (3-13) 06/22/16 09:45 Eosinophils % 3.1 % (0-6) 06/22/16 09:45 Basophils % 1.0 % (0-2) 06/22/16 09:45 Absolute Neutrophils 5.8 10^3/uL (1.7-8.2) 06/22/16 09:45 Absolute Lymphocytes 2.0 10^3/uL (0.5-4.7) 06/22/16 09:45 Absolute Monocytes 0.9 10^3/uL (0.1-1.4) 06/22/16 09:45 Absolute Eosinophils 0.3 10^3/uL (0.0-0.6) 06/22/16 09:45 Absolute Basophils 0.1 10^3/uL (0.0-0.2) 06/22/16 09:45 Sodium 131.9 mmol/L (137-145) L 06/25/16 05:55 Potassium 4.0 mmol/L (3.6-5.0) 06/25/16 05:55 Chloride 98 mmol/L (98-107) 06/25/16 05:55 Carbon Dioxide 23 mmol/L (22-30) 06/25/16 05:55 Anion Gap 11 (5-19) 06/25/16 05:55 BUN 11 mg/dL (7-20) 06/25/16 05:55 Creatinine 0.60 mg/dL (0.52-1.25) 06/25/16 05:55 Est GFR ( Amer) > 60 (>60) 06/25/16 05:55 Est GFR (Non-Af Amer) > 60 (>60) 06/25/16 05:55 Glucose 104 mg/dL (75-110) 06/25/16 05:55 Calcium 9.1 mg/dL (8.4-10.2) 06/25/16 05:55 Total Bilirubin 0.8 mg/dL (0.2-1.3) 06/22/16 09:45 Direct Bilirubin 0.0 mg/dL (0.0-0.3) 06/22/16 09:45 AST 24 U/L (17-59) 06/22/16 09:45 ALT 26 U/L (21-72) 06/22/16 09:45 Alkaline Phosphatase 61 U/L (38-126) 06/22/16 09:45 Creatine Kinase 48 U/L (55-170) L 06/22/16 09:45 CK-MB (CK-2) 0.64 ng/mL (<4.55) 06/22/16 09:45 Troponin I < 0.012 ng/mL 06/22/16 09:45 NT-Pro-B Natriuret Pep 90 pg/mL (<450) 06/22/16 09:45 Total Protein 7.1 g/dL (6.3-8.2) 06/22/16 09:45 Albumin 4.0 g/dL (3.5-5.0) 06/22/16 09:45 Urine Color YELLOW 06/22/16 11:27 Urine Appearance CLOUDY 06/22/16 11:27 Urine pH 8.0 (5.0-9.0) 06/22/16 11:27 Ur Specific [place] 1.017 06/22/16 11:27 Urine Protein 100 mg/dL (NEGATIVE) H 06/22/16 11:27 Urine Glucose (UA) NEGATIVE mg/dL (NEGATIVE) 06/22/16 11:27 Urine Ketones NEGATIVE mg/dL (NEGATIVE) 06/22/16 11:27 Urine Blood MODERATE (NEGATIVE) H 06/22/16 11:27 Urine Nitrite NEGATIVE (NEGATIVE) 06/22/16 11:27 Urine Bilirubin NEGATIVE (NEGATIVE) 06/22/16 11:27 Urine Urobilinogen NEGATIVE mg/dL (<2.0) 06/22/16 11:27 Ur Leukocyte Esterase TRACE (NEGATIVE) H 06/22/16 11:27 Urine WBC (Auto) 78 /HPF 06/22/16 11:27 Urine RBC (Auto) 142 /HPF 06/22/16 11:27 Urine Bacteria (Auto) 1+ /HPF 06/22/16 11:27 Urine WBC Clumps MANY /HPF 06/22/16 11:27 Squamous Epi Cells Auto <1 /HPF 06/22/16 11:27 U Non-Squamous Epis Auto 1 /HPF 06/22/16 11:27 Triple Phos Cryst (Auto) MODERATE /HPF 06/22/16 11:27 Amorphous Sediment Auto TRACE /HPF 06/22/16 11:27 Urine Mucus (Auto) RARE /LPF 06/22/16 11:27 Urine Ascorbic Acid 20 (NEGATIVE) H 06/22/16 11:27 06/22/16 16:30 Blood Culture - Preliminary Blood NO GROWTH 4 DAYS 06/22/16 15:33 Blood Culture - Preliminary Blood NO GROWTH 4 DAYS 06/22/16 11:27 Urine Culture - Final Clean Catch Midstream Aerococcus Urinae Impressions: Chest X-Ray 06/22/16 11:00 IMPRESSION: NO ACUTE RADIOGRAPHIC FINDING IN THE CHEST. Qualifiers PATEINT BEING DISCHARGED WITH ANY OF THE FOLLOWING DIAGNOSIS?: No Plan Discharge Plan: The patient is followed primary care provider within one week hospital follow- up. The patient is to follow with urology within one week given urinary retention. Time Spent: Greater than 30 Minutes
[2016-06-27] MEDS ORDERED: CEFUROXIME 500 MG TABLET PO ONE (11:30)
[2016-06-27 16:39] VITALS: BP 114/48
[2016-06-27] MEDS: TAMSULOSIN HCL 0.4 MG CAP.SR.24H PO SCH (17:25)
[2016-06-27] MEDS ORDERED: CEFUROXIME 500 MG TABLET PO SCH (22:00)
== END 2016-06-27 18:00 | DRG 689 ==
LOC: ER 09:20 → EH 14:26 → UNDOADMIN 15:13 → EH 15:13 → 4W 17:06
DX: N39.0 Urinary tract infection, site not specified (principal); G93.41 Metabolic encephalopathy; J18.9 Pneumonia, unspecified organism; E87.1 Hypo-osmolality and hyponatremia; B96.89 Other specified bacterial agents as the cause of diseases classified elsewhere; N40.1 Benign prostatic hyperplasia with lower urinary tract symptoms; R33.8 Other retention of urine; F03.90 Unspecified dementia, unspecified severity, without behavioral disturbance, psychotic disturbance, mood disturbance, and anxiety; L89.152 Pressure ulcer of sacral region, stage 2; R62.7 Adult failure to thrive; I10 Essential (primary) hypertension; E78.5 Hyperlipidemia, unspecified; R31.9 Hematuria, unspecified; R44.1 Visual hallucinations; E78.00 Pure hypercholesterolemia, unspecified; I44.0 Atrioventricular block, first degree; Z79.899 Other long term (current) drug therapy; Z83.6 Family history of other diseases of the respiratory system; Z82.49 Family history of ischemic heart disease and other diseases of the circulatory system
CPT/HCPCS: 36415; 71010; 80048; 80053; 81001; 82550; 82553; 83880; 84484; 85025; 85027; 87040; 87086; 87088; 93005; 93010; 99285; J0696; J1644; J3490; J7030

== ENCOUNTER 2016-09-18 01:34 | Emergency (ER) | payer MEDICARE, OTHER ==
--- NOTE | 2016-09-18 01:58 | ER Document Report ---
ED GI/ - General TRAVEL OUTSIDE OF THE [place] IN LAST 30 DAYS: No - HPI Patient complains to provider of: Other - see narrative Associated symptoms: Other - see above Similar symptoms previously: Yes <LEON MOCK - Last Filed: 09/18/16 05:55> <NELSON JACOBO - Last Filed: 09/27/16 04:23> - General Chief Complaint: Abdominal Pain Stated Complaint: ABDOMINAL PAIN Notes: Patient is an 81-year-old male that presents to the emergency department today with complaints of constipation and urinary retention. Patient has a history of BPH and states he has not urinated in approximately 24 hours. Patient reports not really being able to see his PCP because he does not drive, his does not drive, and his son who lives with them is handicapped so he as well does not drive. Patient is a somewhat poor historian so history is somewhat limited. Patient does not appear to be keeping up with his medications. Patient states he has diffuse abdominal pain but denies any vomiting. (LEON MOCK) - Related Data Allergies/Adverse Reactions: No Known Allergies Allergy (Verified 09/18/16 01:51) Past Medical History - General Information source: Patient, [facility] Records - Social History Smoking Status: Unknown if Ever Smoked Lives with: Family Family History: Reviewed & Not Pertinent, COPD, Hypertension - Past Medical History Cardiac Medical History: Reports: Hx Hypercholesterolemia, Hx Hypertension Pulmonary Medical History: Reports: Hx Pneumonia Psychiatric Medical History: Reports: Hx Dementia, Hx Depression Past Surgical History: Reports: Hx Oral Surgery, Hx Orthopedic Surgery - patellar fracture - Immunizations Hx Diphtheria, Pertussis, Tetanus Vaccination: Yes Hx Pneumococcal Vaccination: 02/12/10 <LEON MOCK - Last Filed: 09/18/16 05:55> Review of Systems - Review of Systems Constitutional: No symptoms reported EENT: No symptoms reported Cardiovascular: No symptoms reported Respiratory: No symptoms reported Gastrointestinal: See HPI, Abdominal pain, Constipation. denies: Vomiting Genitourinary: See HPI, Retention Male Genitourinary: No symptoms reported Musculoskeletal: No symptoms reported Skin: No symptoms reported Hematologic/Lymphatic: No symptoms reported Neurological/Psychological: No symptoms reported -: Yes All other systems reviewed and negative <LEON MOCK - Last Filed: 09/18/16 05:55> Physical Exam <LEON MOCK - Last Filed: 09/18/16 05:55> <NELSON JACOBO - Last Filed: 09/27/16 04:23> - Vital signs Vitals: Temp Pulse Resp BP Pulse Ox 97.7 F 105 H 24 H 183/96 H 96 09/18/16 01:45 09/18/16 01:45 09/18/16 01:45 09/18/16 01:45 09/18/16 01:45 - Notes Notes: Physical Exam: General: Alert. HEENT: Normocephalic. Atraumatic. PERRL. Extraocular movements intact. Oropharynx clear. Neck: Supple. Non-tender. Respiratory: No respiratory distress. Clear and equal breath sounds bilaterally. Cardiovascular: Regular rate and rhythm. Abdominal: Abdominal distention. Bladder is palpable up to the umbilicus. No guarding, rebound, or rigidity. Normal Bowel Sounds. Back: Non-tender. No deformity or step off. Extremities: Moves all four extremities. Upper extremities: Normal inspection. Normal ROM. Lower extremities: Normal inspection. No edema. Normal ROM. Neurological: Normal cognition. AAOx4. Normal speech. Psychological: Normal affect. Normal Mood. Skin: Warm. Dry. Normal color. (LEON MOCK) Course - Laboratory Result Diagrams: 09/18/16 01:50 09/18/16 01:50 <LEON MOCK - Last Filed: 09/18/16 05:55> - Laboratory Result Diagrams: 09/18/16 01:50 09/18/16 01:50 <NELSON JACOBO - Last Filed: 09/27/16 04:23> - Re-evaluation Re-evalutation: 09/27/16 04:20 patient with history of bph off meds for several weeks unable to void for 24 hours. mendoza cath with large amount nonbloody urine. uti without fever chills vomitng or abdominal pain guarding rebound rigidity. not toxic or septic. dc with mendoza , antibiotics and close pcp urology follow up. discussed reasons for ed return sooner (NELSON JACOBO) - Vital Signs Vital signs: Temp Pulse Resp BP Pulse Ox 98.0 F 93 14 150/86 H 96 09/18/16 06:41 09/18/16 06:41 09/18/16 06:41 09/18/16 06:41 09/18/16 06:41 - Laboratory Laboratory results interpreted by me: 09/18/16 09/18/16 09/18/16 01:50 01:50 04:24 WBC 10.8 H Seg Neutrophils % 81.6 H Lymphocytes % 11.6 L Absolute Neutrophils 8.8 H Glucose 211 H Direct Bilirubin 0.5 H Urine Protein 100 H Urine Glucose (UA) 150 H Urine Ketones 20 H Urine Blood MODERATE H Ur Leukocyte Esterase LARGE H Discharge <LEON MOCK - Last Filed: 09/18/16 05:55> <NELSON JACOBO - Last Filed: 09/27/16 04:23> - Discharge Clinical Impression: Acute retention of urine, UTI Condition: Stable Disposition: HOME, SELF-CARE Additional Instructions: Urinary Tract Infection Your evaluation indicates that you have a urinary tract infection. This is due to germs growing in the bladder. This is a common problem. This infection usually responds quickly to antibiotics. Your antibiotic should be taken exactly as prescribed. Drink plenty of fluids -- three to four quarts a day. Occasionally, a bladder anesthetic will be prescribed to help stop the feeling of urgency until the antibiotic has a chance to clear the infection. This may cause your urine to be dark orange. Certain urine infections require a culture. If the doctor obtained a culture, the results will be back in two days. You should call to see if a change in treatment is needed. A repeat urinalysis after you finish treatment is often recommended. The physician will let you know if further testing is required. Call the doctor if you develop fever, chills, flank pain, inability to urinate, or blood in the urine. Urinary Retention Urinary retention is inability to empty the bladder. It can result from a urine infection, or from mechanical problems such as an enlarged prostate gland or swelling of the urethra. Drugs or alcohol can also lead to urine retention. The condition is usually treated by passage of a catheter. If the physician thinks the problem will continue, the catheter may be left in place for a few days. Sometimes drugs are used to stimulate the bladder if the physician feels that inadequate bladder contraction is the cause. If the condition leading to the retention is a chronic one, such as an enlarged prostate, you will be referred to a specialist for further care. Call the physician or return if you develop fever, flank or back pain, pain on urination, or recurrent difficulty passing the urine. Prescriptions: Nitrofurantoin/Nitrofuran Mac [Macrobid 100 mg Capsule] 1 tab PO BID #20 capsule Referrals: [facility] [Provider Group] (Call for appointment to be seen in follow-up in 2-3 days term for increasing worsening or new symptoms) CHARLIE FLEIX MD [Primary Care Provider] - Follow up in 3-5 days Scribe Attestation: 09/18/16 05:34 I personally performed the services described in the documentation reviewed the documentation recorded by my scribe in my presence and it accurately and completely records my words and actions (NELSON JACOBO) Scribe Documentation - Scribe Written by Scrpepper:: Vanesa Hennessy, 09/18/2016 [id number] acting as scribe for :: Kip <LEON MOCK - Last Filed: 09/18/16 05:55>
[2016-09-18 02:03] LABS: ABSOLUTE BASOPHILS # (AUTO) 0.1 10^3/uL (0.0-0.2); ABSOLUTE EOSINOPHILS # (AUTO) 0.1 10^3/uL (0.0-0.6); ABSOLUTE LYMPHOCYTES (AUTO) 1.3 10^3/uL (0.5-4.7); ABSOLUTE MONOCYTES (AUTO) 0.6 10^3/uL (0.1-1.4); ABSOLUTE NEUT (AUTO) 8.8 10^3/uL (1.7-8.2); BASOPHILS % (AUTO) 0.5 % (0-2); EOSINOPHILS % (AUTO) 0.8 % (0-6); HEMATOCRIT 45.5 % (37.9-51.0); HEMOGLOBIN 15.7 g/dL (13.5-17.0); HGB HCT DIFFERENCE 1.6; LYMPHOCYTES % (AUTO) 11.6 % (13-45); MEAN CORPUSCULAR HEMOGLOBIN 32.3 pg (27.0-33.4); MEAN CORPUSCULAR HGB CONC 34.5 g/dL (32.0-36.0); MEAN CORPUSCULAR VOLUME 94 fl (80-97); MONOCYTES % (AUTO) 5.5 % (3-13); RED BLOOD COUNT 4.86 10^6/uL (4.35-5.55); RED CELL DISTRIBUTION WIDTH 12.8 % (11.5-14.0); SEGMENTED NEUTROPHILS % (AUTO) 81.6 % (42-78); WHITE BLOOD COUNT 10.8 10^3/uL (4.0-10.5)
[2016-09-18 02:29] LABS: ALANINE AMINOTRANSFERASE 28 U/L (21-72); ALBUMIN 4.1 g/dL (3.5-5.0); ALKALINE PHOSPHATASE 75 U/L (38-126); ANION GAP 16 (5-19); ASPARTATE AMINO TRANSFERASE 25 U/L (17-59); BILIRUBIN,DIRECT 0.5 mg/dL (0.0-0.4); BILIRUBIN,TOTAL 1.1 mg/dL (0.2-1.3); BLOOD UREA NITROGEN 12 mg/dL (7-20); CARBON DIOXIDE 23 mmol/L (22-30); CHLORIDE 100 mmol/L (98-107); CREATININE RESULT 0.82 mg/dL (0.52-1.25); GLUCOSE 211 mg/dL (75-110); LIPASE 66.1 U/L (23-300); POTASSIUM 3.7 mmol/L (3.6-5.0); SODIUM 138.5 mmol/L (137-145); TOTAL PROTEIN 7.9 g/dL (6.3-8.2)
[2016-09-18 05:29] LABS: APPEARANCE,URINE SLIGHTLY-CLOUDY; BILIRUBIN,URINE NEGATIVE (NEGATIVE); GLUCOSE, URINE 150 mg/dL (NEGATIVE); KETONES,URINE 20 mg/dL (NEGATIVE); LEUKOCYTE ESTERASE,URINE LARGE (NEGATIVE); NITRITE,URINE NEGATIVE (NEGATIVE); PROTEIN,URINE 100 mg/dL (NEGATIVE); URINE SPECIFIC GRAVITY 1.013; UROBILINOGEN,URINE NEGATIVE mg/dL (<2.0)
[2016-09-18] MEDS ORDERED: CEFTRIAXONE INJ 1000 MG VIAL IM ONE (05:31)
[2016-09-18] MEDS ORDERED: LIDOCAINE 1% INJ-PF (10 MG/ML) 30 ML SDV ONE (05:50)
[2016-09-18 06:46] VITALS: BP 150/86
== END 2016-09-18 06:41 | disposition home or self-care (01) ==
LOC: ER 01:34
DX: N39.0 Urinary tract infection, site not specified (principal); K59.00 Constipation, unspecified; N40.1 Benign prostatic hyperplasia with lower urinary tract symptoms; R33.8 Other retention of urine; R10.84 Generalized abdominal pain; I10 Essential (primary) hypertension
CPT/HCPCS: 99284; 96372; 51701; 36415; 83690; 85025; 80053; 81001; 83605; J0696

== ENCOUNTER 2017-05-29 09:49 | Emergency (ER) | payer MEDICARE, OTHER ==
[2017-05-29] MEDS ORDERED: NORMAL SALINE 1000 ML 1,000 ML IV ONE (10:06)
--- NOTE | 2017-05-29 10:30 | RADIOLOGY REPORT (SQ) ---
EXAM DESCRIPTION: CHEST SINGLE VIEW COMPLETED DATE/TIME: 05/29/2017 10:19 am REASON FOR STUDY: cough COMPARISON: 06/22/2016 EXAM PARAMETERS: NUMBER OF VIEWS: One view. TECHNIQUE: Single frontal radiographic view of the chest acquired. RADIATION DOSE: NA LIMITATIONS: None. FINDINGS: LUNGS AND PLEURA: Minimal subsegmental atelectasis/scarring left lung base. No consolidat ion, pleural effusion, or pneumothorax. MEDIASTINUM AND HILAR STRUCTURES: No masses. Contour normal. HEART AND VASCULAR STRUCTURES: Heart stable in size. Normal vasculature. BONES: No acute findings. HARDWARE: None in the chest. OTHER: No other significant finding. IMPRESSION: NO ACUTE CARDIOPULMONARY PROCESS. NO SIGNIFICANT CHANGE FROM PRIOR STUDY. TECHNICAL DOCUMENTATION: JOB ID: [id number] [employer]- All Rights Reserved
--- NOTE | 2017-05-29 11:02 | ER Document Report ---
ED General - General Chief Complaint: Diarrhea Stated Complaint: SLEEPING DIFFICULTY Time Seen by Provider: 05/29/17 10:05 Notes: The patient is an 82-year-old male who presents with 3 days of not being able to sleep and 2 days of watery diarrhea. Patient says his mental status feels "foggy." He denies recent antibiotic use, abdominal pain, nausea, vomiting, fevers, hallucinations, head injury, focal weakness, numbness, tingling, ataxia , blurry vision or rash. TRAVEL OUTSIDE OF THE [place] IN LAST 30 DAYS: No - Related Data Allergies/Adverse Reactions: No Known Allergies Allergy (Verified 09/18/16 01:51) Past Medical History - General Information source: Patient - Social History Smoking Status: Former Smoker Frequency of alcohol use: None Drug Abuse: None Family History: Reviewed & Not Pertinent, COPD, Hypertension Patient has suicidal ideation: No Patient has homicidal ideation: No - Past Medical History Cardiac Medical History: Reports: Hx Hypercholesterolemia, Hx Hypertension Pulmonary Medical History: Reports: Hx Pneumonia Renal/ Medical History: Denies: Hx Peritoneal Dialysis Psychiatric Medical History: Reports: Hx Dementia, Hx Depression Past Surgical History: Reports: Hx Oral Surgery, Hx Orthopedic Surgery - patellar fracture - Immunizations Hx Diphtheria, Pertussis, Tetanus Vaccination: Yes Hx Pneumococcal Vaccination: 02/12/10 Review of Systems - Review of Systems Notes: REVIEW OF SYSTEMS: CONSTITUTIONAL: -fevers, -chills EENT: -eye pain, -difficulty swallowing, -nasal congestion CARDIOVASCULAR: -chest pain, -syncope. RESPIRATORY: -cough, -SOB GASTROINTESTINAL: -abdominal pain, -nausea, -vomiting, +diarrhea GENITOURINARY: -dysuria, -hematuria MUSCULOSKELETAL: -back pain, -neck pain SKIN: -rash or skin lesions. HEMATOLOGIC: -easy bruising or bleeding. LYMPHATIC: -swollen, enlarged glands. NEUROLOGICAL: -altered mental status or loss of consciousness, -headache, - neurologic symptoms PSYCHIATRIC: -anxiety, -depression. ALL OTHER SYSTEMS REVIEWED AND NEGATIVE. Physical Exam - Vital signs Vitals: Resp Pulse Ox 18 95 05/29/17 09:56 05/29/17 09:56 - Notes Notes: PHYSICAL EXAMINATION: GENERAL: Well-appearing, well-nourished and in no acute distress. HEAD: Atraumatic, normocephalic. EYES: Pupils equal round and reactive to light, extraocular movements intact, sclera anicteric, conjunctiva are normal. ENT: nares patent, oropharynx clear without exudates. Moist mucous membranes. NECK: Normal range of motion, supple without lymphadenopathy LUNGS: Breath sounds clear to auscultation bilaterally and equal. No wheezes rales or rhonchi. HEART: Regular rate and rhythm without murmurs ABDOMEN: Soft, nontender, normoactive bowel sounds. No guarding, no rebound. No masses appreciated. EXTREMITIES: Normal range of motion, no pitting or edema. No cyanosis. NEUROLOGICAL: Cranial nerves grossly intact. Normal speech, normal gait. Normal sensory and motor exams. PSYCH: Normal mood, normal affect. SKIN: Warm, Dry, normal turgor, no rashes or lesions noted. Course - Re-evaluation Re-evalutation: Patient is in no acute distress. No focal neuro deficits and he is AAO4. CT head obtained due to feeling "foggy," but there were no acute findings. Blood work is unremarkable, other than slight hyponatremia and slight leukocytosis. There are no signs of infection and he is afebrile. He has not had any diarrhea episodes in the ER and no recent Abx use to suggest C. diff. Instructed patient to follow-up with his primary care physician for further evaluation and treatment. - Vital Signs Vital signs: Temp Pulse Resp BP Pulse Ox 97.7 F 17 178/81 H 98 05/29/17 10:06 05/29/17 11:01 05/29/17 11:01 05/29/17 11:01 - Laboratory Result Diagrams: 05/29/17 10:45 05/29/17 10:45 Laboratory results interpreted by me: 05/29/17 05/29/17 10:45 10:45 WBC 10.6 H RBC 4.33 L Sodium 132.2 L Chloride 96 L Glucose 126 H Creatine Kinase 43 L Total Protein 6.2 L - Diagnostic Test Radiology reviewed: Image reviewed, Reports reviewed Radiology results interpreted by me: Head CT: NAD - EKG Interpretation by Me EKG shows normal: Sinus rhythm, Fielding, QRS Complexes, ST-T Waves Rate: Normal When compared to previous EKG there are: No significant change Discharge - Discharge Clinical Impression: Diarrhea Qualifiers: Diarrhea type: unspecified type Qualified Code(s): R19.7 - Diarrhea, unspecified Condition: Stable Disposition: HOME, SELF-CARE Additional Instructions: DIARRHEA, NON-SPECIFIC: Diarrhea means frequent, watery stools. There are many causes. Any problem that keeps the intestinal tract from absorbing water from the stool can lead to diarrhea. A sudden new diarrhea problem is usually caused by a virus, food sensitivity, toxic bacteria, or drugs. In this case, we expect the problem to go away soon. Testing is done only if you seem seriously ill from the diarrhea. If you have chronic diarrhea, or diarrhea that keeps coming back, we need to find out why. Chronic diarrhea can be due to inflammation of the bowels such as Crohn's disease or ulcerative colitis, food sensitivity such as intolerance to lactose or wheat protein, irritable bowel syndrome, and other problems. If your diarrhea is a significant problem but it's not clear why you have it, we' ll refer you to a specialist for further testing. During an episode of diarrhea, drink small amounts (two to six ounces) of clear liquids (soft drinks, sport drinks, herb teas, broth, etc). Take fluids frequently to prevent dehydration. It's usually not a problem to take mild anti- diarrhea medication such as Kaopectate or Pepto-Bismol. As the diarrhea eases, advance to small amounts of bland food (mashed potato, toast) for 24 hours. Call the physician if blood appears in your vomit or stool, if vomiting lasts longer than 24 hours, if the abdominal pain worsens or becomes localized to one area, if you develop high fever, or if you become lightheaded and weak. INTRAVENOUS (I V) FLUIDS: As part of your care today, you received intravenous (IV) fluids. IV fluids are administered to patients who are dehydrated or to those who have certain chemical (electrolyte) abnormalities that need correcting. FOLLOW-UP CARE: If you have been referred to a physician for follow-up care, call the physician s office for an appointment as you were instructed or within the next two days. If you experience worsening or a significant change in your symptoms, notify the physician immediately or return to the Emergency Department at any time for re-evaluation. Forms: Elevated Blood Pressure Referrals: [facility] [Provider Group] - Follow up as needed
[2017-05-29 11:09] LABS: ABSOLUTE BASOPHILS # (AUTO) 0.1 10^3/uL (0.0-0.2); ABSOLUTE EOSINOPHILS # (AUTO) 0.2 10^3/uL (0.0-0.6); ABSOLUTE MONOCYTES (AUTO) 0.9 10^3/uL (0.1-1.4); ABSOLUTE NEUT (AUTO) 7.4 10^3/uL (1.7-8.2); BASOPHILS % (AUTO) 0.9 % (0-2); EOSINOPHILS % (AUTO) 2.3 % (0-6); HEMATOCRIT 40.7 % (37.9-51.0); HEMOGLOBIN 13.9 g/dL (13.5-17.0); LYMPHOCYTES % (AUTO) 18.4 % (13-45); MEAN CORPUSCULAR HEMOGLOBIN 32.2 pg (27.0-33.4); MEAN CORPUSCULAR HGB CONC 34.2 g/dL (32.0-36.0); MEAN CORPUSCULAR VOLUME 94 fl (80-97); MONOCYTES % (AUTO) 8.9 % (3-13); PLATELET COUNT 230 10^3/uL (150-450); RED BLOOD COUNT 4.33 10^6/uL (4.35-5.55); RED CELL DISTRIBUTION WIDTH 13.7 % (11.5-14.0); SEGMENTED NEUTROPHILS % (AUTO) 69.5 % (42-78); TOTAL CELLS COUNTED % (AUTO) 100 %; WHITE BLOOD COUNT 10.6 10^3/uL (4.0-10.5)
[2017-05-29 11:25] LABS: ALANINE AMINOTRANSFERASE 40 U/L (21-72); ALBUMIN 3.6 g/dL (3.5-5.0); ALKALINE PHOSPHATASE 67 U/L (38-126); ANION GAP 8 (5-19); ASPARTATE AMINO TRANSFERASE 25 U/L (17-59); BILIRUBIN,DIRECT 0.1 mg/dL (0.0-0.4); BILIRUBIN,TOTAL 0.5 mg/dL (0.2-1.3); BLOOD UREA NITROGEN 12 mg/dL (7-20); CALCIUM 9.1 mg/dL (8.4-10.2); CARBON DIOXIDE 28 mmol/L (22-30); CHLORIDE 96 mmol/L (98-107); CREATINE KINASE 43 U/L (55-170); GLUCOSE 126 mg/dL (75-110); POTASSIUM 4.1 mmol/L (3.6-5.0); SODIUM 132.2 mmol/L (137-145); TOTAL PROTEIN 6.2 g/dL (6.3-8.2)
--- NOTE | 2017-05-29 12:27 | RADIOLOGY REPORT (SQ) ---
EXAM DESCRIPTION: CT HEAD WITHOUT COMPLETED DATE/TIME: 05/29/2017 12:19 pm REASON FOR STUDY: AMS COMPARISON: 06/16/2016 TECHNIQUE: Axial images acquired through the brain without intravenous contrast. Images reviewed wi th bone, brain and subdural windows. Images stored on PACS. All CT scanners at this facility use dose modulation, iterative reconstruction, and/or weight based d osing when appropriate to reduce radiation dose to as low as reasonably achievable (ALARA). [facility]: Dose Right [facility]: CareDose [facility]: Dose Right [facility]: Teradose 4D [facility]: [employer] RADIATION DOSE: CT Rad equipment meets quality standard of care and radiation dose reduction techniq ues were employed. CTDIvol: 28.0 mGy. DLP: 560 mGy-cm.mGy. LIMITATIONS: None. FINDINGS: VENTRICLES: Prominent. CEREBRUM: No masses. No hemorrhage. No midline shift. Areas of low density in the white matter mos t likely due to chronic micro-vascular ischemic change. No evidence for acute infarction. CEREBELLUM: No masses. No hemorrhage. No alteration of density. No evidence for acute infarction. EXTRAAXIAL SPACES: Age-related involutional change. No fluid collections. No masses. ORBITS AND GLOBE: No intra- or extraconal masses. Normal contour of globe without masses. CALVARIUM: No fracture. PARANASAL SINUSES: No fluid or mucosal thickening. SOFT TISSUES: No mass or hematoma. OTHER: No other significant finding. IMPRESSION: CHRONIC CHANGES OF ATROPHY AND MICROVASCULAR ISCHEMIA. NO ACUTE PROCESS. EVIDENCE OF ACUTE STROKE: NO. TECHNICAL DOCUMENTATION: JOB ID: [id number] Quality ID # [id number]: Final reports with documentation of one or more dose reduction techniques (e.g., Au tomated exposure control, adjustment of the mA and/or kV according to patient size, use of iterative reconstruction technique) 2010 [employer]- All Rights Reserved
[2017-05-29 12:54] LABS: APPEARANCE,URINE CLEAR; BILIRUBIN,URINE NEGATIVE (NEGATIVE); COLOR,URINE YELLOW; GLUCOSE, URINE NEGATIVE (NEGATIVE); KETONES,URINE NEGATIVE (NEGATIVE); LEUKOCYTE ESTERASE,URINE NEGATIVE (NEGATIVE); NITRITE,URINE NEGATIVE (NEGATIVE); PROTEIN,URINE 100 mg/dL (NEGATIVE); URINE SPECIFIC GRAVITY 1.009; UROBILINOGEN,URINE NEGATIVE mg/dL (<2.0)
[2017-05-29 13:25] VITALS: BP 183/79
--- NOTE | 2017-05-29 17:15 | EKG REPORT ---
SEVERITY:- ABNORMAL ECG - SINUS RHYTHM FIRST DEGREE AV BLOCK PROBABLE INFERIOR INFARCT, AGE INDETERMINATE : Confirmed by: Rocco Aaron 29-May-2017 17:14:49
== END 2017-05-29 13:56 | disposition home or self-care (01) ==
LOC: ER 09:49
DX: R19.7 Diarrhea, unspecified (principal); D72.829 Elevated white blood cell count, unspecified; E87.1 Hypo-osmolality and hyponatremia; R29.818 Other symptoms and signs involving the nervous system; I10 Essential (primary) hypertension; Z87.891 Personal history of nicotine dependence
CPT/HCPCS: 93005; 99284; 96360; 36415; 82550; 85025; 80053; 81001; 84484; 71045; 70450; 93010; J7030

== ENCOUNTER 2017-06-24 14:17 | Emergency (ER) | payer MEDICARE, OTHER ==
[2017-06-24 14:45] LABS: ABSOLUTE BASOPHILS # (AUTO) 0.1 10^3/uL (0.0-0.2); ABSOLUTE EOSINOPHILS # (AUTO) 0.3 10^3/uL (0.0-0.6); ABSOLUTE LYMPHOCYTES (AUTO) 1.5 10^3/uL (0.5-4.7); ABSOLUTE MONOCYTES (AUTO) 0.6 10^3/uL (0.1-1.4); ABSOLUTE NEUT (AUTO) 5.4 10^3/uL (1.7-8.2); BASOPHILS % (AUTO) 1.4 % (0-2); EOSINOPHILS % (AUTO) 3.4 % (0-6); HEMATOCRIT 41.5 % (37.9-51.0); HEMOGLOBIN 14.1 g/dL (13.5-17.0); LYMPHOCYTES % (AUTO) 18.8 % (13-45); MEAN CORPUSCULAR HEMOGLOBIN 32.1 pg (27.0-33.4); MEAN CORPUSCULAR HGB CONC 34.1 g/dL (32.0-36.0); MEAN CORPUSCULAR VOLUME 94 fl (80-97); MONOCYTES % (AUTO) 8.1 % (3-13); PLATELET COUNT 304 10^3/uL (150-450); RED BLOOD COUNT 4.41 10^6/uL (4.35-5.55); RED CELL DISTRIBUTION WIDTH 13.4 % (11.5-14.0); SEGMENTED NEUTROPHILS % (AUTO) 68.3 % (42-78); TOTAL CELLS COUNTED % (AUTO) 100 %; WHITE BLOOD COUNT 7.8 10^3/uL (4.0-10.5)
[2017-06-24 15:02] LABS: ALANINE AMINOTRANSFERASE 28 U/L (21-72); ALBUMIN 3.6 g/dL (3.5-5.0); ALKALINE PHOSPHATASE 65 U/L (38-126); ANION GAP 13 (5-19); ASPARTATE AMINO TRANSFERASE 22 U/L (17-59); BILIRUBIN,DIRECT 0.4 mg/dL (0.0-0.4); BILIRUBIN,TOTAL 0.4 mg/dL (0.2-1.3); BLOOD UREA NITROGEN 20 mg/dL (7-20); CALCIUM 9.4 mg/dL (8.4-10.2); CARBON DIOXIDE 24 mmol/L (22-30); CHLORIDE 97 mmol/L (98-107); CREATINE KINASE 51 U/L (55-170); GLUCOSE 234 mg/dL (75-110); POTASSIUM 4.7 mmol/L (3.6-5.0); TOTAL PROTEIN 6.5 g/dL (6.3-8.2)
--- NOTE | 2017-06-24 15:04 | ER Document Report ---
ED General - General Mode of Arrival: Medic Information source: Patient TRAVEL OUTSIDE OF THE [place] IN LAST 30 DAYS: No <BRISSA KEYES - Last Filed: 06/25/17 00:31> <GARRETTHERIBERTOJUAN PABLO - Last Filed: 06/25/17 00:38> - General Chief Complaint: General Weakness Stated Complaint: WEAKNESS Time Seen by Provider: 06/24/17 14:41 Notes: Patient is an 82 year old male with a history Glaucoma and COPD presents to the emergency department via EMS complaining of a intermittent weakness onset 1 week ago. Patient states he was taking a sponge bath this morning when he began to feel weak. Patient states he was unable to get up from the floor after his bath. Patient also complains of frequent urination. Patient denies dysuria, blood in stool, chest pain, trouble breathing, nausea, vomiting, diarrhea, cough or fevers. Patient is currently taking Synthroid and Plavix. (BRISSA KEYES) - Related Data Allergies/Adverse Reactions: No Known Allergies Allergy (Verified 09/18/16 01:51) Past Medical History - General Information source: Patient - Social History Smoking Status: Never Smoker Frequency of alcohol use: None Drug Abuse: None Family History: Reviewed & Not Pertinent, COPD, Hypertension Patient has suicidal ideation: No Patient has homicidal ideation: No - Past Medical History Cardiac Medical History: Reports: Hx Hypercholesterolemia, Hx Hypertension Pulmonary Medical History: Reports: Hx COPD, Hx Pneumonia Psychiatric Medical History: Reports: Hx Dementia, Hx Depression Past Surgical History: Reports: Hx Oral Surgery, Hx Orthopedic Surgery - patellar fracture - Immunizations Hx Diphtheria, Pertussis, Tetanus Vaccination: Yes Hx Pneumococcal Vaccination: 02/12/10 <BRISSA KEYES - Last Filed: 06/25/17 00:31> Review of Systems - Review of Systems Constitutional: See HPI, Weakness EENT: No symptoms reported Cardiovascular: No symptoms reported Respiratory: No symptoms reported Gastrointestinal: No symptoms reported Genitourinary: See HPI, Frequency Male Genitourinary: No symptoms reported Musculoskeletal: No symptoms reported Skin: No symptoms reported Hematologic/Lymphatic: No symptoms reported Neurological/Psychological: No symptoms reported -: Yes All other systems reviewed and negative <BRISSA KEYES - Last Filed: 06/25/17 00:31> Physical Exam <BRISSA KEYES - Last Filed: 06/25/17 00:31> <JUAN PABLO ALLEN - Last Filed: 06/25/17 00:38> - Vital signs Vitals: Resp BP Pulse Ox 17 159/62 H 97 06/24/17 14:24 06/24/17 14:24 06/24/17 14:24 - Notes Notes: GENERAL: Alert, interacts well. No acute distress. HEAD: Normocephalic, atraumatic. EYES: Pupils equal, round, and reactive to light. Extraocular movements intact. ENT: Oral mucosa moist, tongue midline. NECK: Full range of motion. Supple. Trachea midline. LUNGS: Appears short of breath while talking. Mild tachypnea. Clear to auscultation bilaterally, no wheezes, rales, or rhonchi. HEART: Regular rate and rhythm. No murmurs, gallops, or rubs. ABDOMEN: Soft, non-tender. Non-distended. Bowel sounds present in all 4 quadrants. EXTREMITIES: Moves all 4 extremities spontaneously. No edema, radial and dorsalis pedis pulses 2/4 bilaterally. No cyanosis. NEUROLOGICAL: Alert and oriented x3. Normal speech. PSYCH: Normal affect, normal mood. SKIN: Warm, dry, normal turgor. No rashes or lesions noted. (BRISSA KEYES) Course - Laboratory Result Diagrams: 06/24/17 13:50 06/24/17 13:50 <BRISSA KEYES - Last Filed: 06/25/17 00:31> - Laboratory Result Diagrams: 06/24/17 13:50 06/24/17 13:50 <JUAN PABLO ALLEN - Last Filed: 06/25/17 00:38> - Re-evaluation Re-evalutation: 06/24/17 18:04 CBC unremarkable, venous blood gas unremarkable, CMP grossly unremarkable only shows hyperglycemia at 234 consistent with his history of diabetes, cardiac enzymes negative, urinalysis shows protein and glucose but no ketones, moderate blood, [address] scan of the head is negative for acute process, chest x-ray is negative. Patient was hydrated and walked. Feels much better, had no hypoxia or tachycardia or tachypnea while walking. Patient will be discharged to home. At present I am not certain what caused his generalized malaise but I do not see any signs of heart attack, infection, sepsis. (JUAN PABLO ALLEN) - Vital Signs Vital signs: Temp Pulse Resp BP Pulse Ox 98 F 80 15 174/70 H 98 06/24/17 18:32 06/24/17 14:32 06/24/17 21:01 06/24/17 21:01 06/24/17 21:01 - Laboratory Laboratory results interpreted by me: 06/24/17 06/24/17 13:50 16:25 Sodium 134.0 L Chloride 97 L Glucose 234 H Creatine Kinase 51 L Urine Protein 100 H Urine Glucose (UA) 150 H Urine Blood MODERATE H Urine Urobilinogen 2.0 H - EKG Interpretation by Me Additional EKG results interpreted by me: 06/24/17 18:06 EKG shows sinus rhythm at a rate of 71, first-degree AV block, normal axis, no ST segment elevations or depressions, nonspecific isolated T-wave inversions in aVL per my interpretation. (JUAN PABLO ALLEN) Discharge <BRISSA KEYES - Last Filed: 06/25/17 00:31> <JUAN PABLO ALLEN - Last Filed: 06/25/17 00:38> - Discharge Clinical Impression: Weakness Condition: Stable Disposition: HOME, SELF-CARE Additional Instructions: Today your blood work was normal aside from elevated blood sugar. I did not find any signs of stroke, heart attack or infection. If you feel worse please return to the emergency department. Please follow-up with your primary care physician within the next week. Referrals: JENNIFER TYSON MD [Primary Care Provider] - Follow up in 1 week Scribe Attestation: 06/25/17 00:38 I personally performed the services described in the documentation, reviewed and edited the documentation which was dictated to the scribe in my presence, and it accurately records my words and actions. (JUAN PABLO ALLEN) Scribe Documentation - Scribe Written by Vanesa:: Vanesa Lo, 06/24/2017 15:35 acting as scribe for :: Anjel <BRISSA KEYES - Last Filed: 06/25/17 00:31>
[2017-06-24 15:10] LABS: CREATINE KINASE MB 1.26 ng/mL (<4.55)
[2017-06-24 15:16] LABS: TROPONIN I < 0.012 ng/mL
--- NOTE | 2017-06-24 15:34 | RADIOLOGY REPORT (SQ) ---
EXAM DESCRIPTION: CHEST SINGLE VIEW COMPLETED DATE/TIME: 06/24/2017 3:25 pm REASON FOR STUDY: weak, dizzy, near syncope COMPARISON: 05/29/2017. EXAM PARAMETERS: NUMBER OF VIEWS: One view. TECHNIQUE: Single frontal radiographic view of the chest acquired. RADIATION DOSE: NA LIMITATIONS: None. FINDINGS: LUNGS AND PLEURA: No opacities, masses or pneumothorax. No pleural effusion. MEDIASTINUM AND HILAR STRUCTURES: No masses. Contour normal. HEART AND VASCULAR STRUCTURES: Heart normal in size. Normal vasculature. BONES: No acute findings. HARDWARE: None in the chest. OTHER: No other significant finding. IMPRESSION: NO ACUTE RADIOGRAPHIC FINDING IN THE CHEST. TECHNICAL DOCUMENTATION: JOB ID: [id number] [employer]- All Rights Reserved
[2017-06-24] MEDS ORDERED: NORMAL SALINE 1000 ML 1,000 ML IV ONE (15:41)
--- NOTE | 2017-06-24 15:47 | RADIOLOGY REPORT (SQ) ---
EXAM DESCRIPTION: CT HEAD WITHOUT COMPLETED DATE/TIME: 06/24/2017 3:31 pm REASON FOR STUDY: weak, dizzy, near syncope COMPARISON: 05/29/2017. TECHNIQUE: Axial images acquired through the brain without intravenous contrast. Images reviewed wi th bone, brain and subdural windows. Images stored on PACS. All CT scanners at this facility use dose modulation, iterative reconstruction, and/or weight based d osing when appropriate to reduce radiation dose to as low as reasonably achievable (ALARA). [facility]: Dose Right [facility]: CareDose [facility]: Dose Right [facility]: Teradose 4D [facility]: [employer] RADIATION DOSE: CT Rad equipment meets quality standard of care and radiation dose reduction techniq ues were employed. CTDIvol: 28.0 mGy. DLP: 504 mGy-cm. mGy. LIMITATIONS: None. FINDINGS: VENTRICLES: Prominent. CEREBRUM: No masses. No hemorrhage. No midline shift. Areas of low density in the white matter mos t likely due to chronic micro-vascular ischemic change. No evidence for acute infarction. CEREBELLUM: No masses. No hemorrhage. No alteration of density. No evidence for acute infarction. EXTRAAXIAL SPACES: Mild age-related involutional change. No fluid collections. No masses. ORBITS AND GLOBE: No intra- or extraconal masses. Normal contour of globe without masses. CALVARIUM: No fracture. PARANASAL SINUSES: No fluid or mucosal thickening. SOFT TISSUES: No mass or hematoma. OTHER: No other significant finding. IMPRESSION: MILD CHRONIC CHANGES OF ATROPHY AND MICROVASCULAR ISCHEMIA. NO ACUTE PROCESS. EVIDENCE OF ACUTE STROKE: NO. TECHNICAL DOCUMENTATION: JOB ID: [id number] Quality ID # [id number]: Final reports with documentation of one or more dose reduction techniques (e.g., Au tomated exposure control, adjustment of the mA and/or kV according to patient size, use of iterative reconstruction technique) 2010 [employer]- All Rights Reserved
[2017-06-24 16:20] LABS: VENOUS BLOOD BASE EXCESS -0.5 mmol/L; VENOUS BLOOD HCO3 24.9 mmol/L (20-32); VENOUS BLOOD PCO2 43.7 mmHg (35-63); VENOUS BLOOD PH 7.37 (7.30-7.42)
[2017-06-24 16:53] LABS: APPEARANCE,URINE CLEAR; BILIRUBIN,URINE NEGATIVE (NEGATIVE); COLOR,URINE YELLOW; GLUCOSE, URINE 150 mg/dL (NEGATIVE); KETONES,URINE NEGATIVE (NEGATIVE); LEUKOCYTE ESTERASE,URINE NEGATIVE (NEGATIVE); NITRITE,URINE NEGATIVE (NEGATIVE); PROTEIN,URINE 100 mg/dL (NEGATIVE); URINE SPECIFIC GRAVITY 1.025
[2017-06-24 21:30] VITALS: BP 174/70
--- NOTE | 2017-06-25 08:58 | EKG REPORT ---
SEVERITY:- ABNORMAL ECG - SINUS RHYTHM FIRST DEGREE AV BLOCK : Confirmed by: Rocco Aaron 25-Jun-2017 08:57:26
== END 2017-06-24 21:49 | disposition home or self-care (01) ==
LOC: ER 14:17
DX: R53.1 Weakness (principal); E78.00 Pure hypercholesterolemia, unspecified; I10 Essential (primary) hypertension; J44.9 Chronic obstructive pulmonary disease, unspecified
CPT/HCPCS: 93005; 99285; 96360; 36415; 82553; 82550; 85025; 80053; 81001; 84484; 82803; 83605; 71045; 70450; 93010; J7030

== ENCOUNTER 2017-06-29 15:08 | Emergency (ER) | payer MEDICARE, OTHER ==
[2017-06-29 15:48] LABS: ABSOLUTE BASOPHILS # (AUTO) 0.1 10^3/uL (0.0-0.2); ABSOLUTE EOSINOPHILS # (AUTO) 0.1 10^3/uL (0.0-0.6); ABSOLUTE LYMPHOCYTES (AUTO) 0.4 10^3/uL (0.5-4.7); ABSOLUTE NEUT (AUTO) 5.9 10^3/uL (1.7-8.2); EOSINOPHILS % (AUTO) 0.8 % (0-6); HEMATOCRIT 41.5 % (37.9-51.0); HEMOGLOBIN 14.2 g/dL (13.5-17.0); LYMPHOCYTES % (AUTO) 5.1 % (13-45); MEAN CORPUSCULAR HEMOGLOBIN 32.3 pg (27.0-33.4); MEAN CORPUSCULAR HGB CONC 34.1 g/dL (32.0-36.0); MEAN CORPUSCULAR VOLUME 95 fl (80-97); PLATELET COUNT 244 10^3/uL (150-450); RED BLOOD COUNT 4.38 10^6/uL (4.35-5.55); RED CELL DISTRIBUTION WIDTH 13.5 % (11.5-14.0); SEGMENTED NEUTROPHILS % (AUTO) 80.1 % (42-78); TOTAL CELLS COUNTED % (AUTO) 100 %; WHITE BLOOD COUNT 7.3 10^3/uL (4.0-10.5)
[2017-06-29] MEDS ORDERED: IPRATROPIUM/ALBUTEROL 0.5-2.5 MG/3 ML AMPUL NEB ONE (15:51)
[2017-06-29 16:18] LABS: A TYPE INFLUENZA AG NEGATIVE (NEGATIVE); B INFLUENZA AG NEGATIVE (NEGATIVE)
--- NOTE | 2017-06-29 16:25 | ER Document Report ---
ED Flu Like - General Chief Complaint: Flu Symptoms Stated Complaint: FLU LIKE SYMPTOMS Time Seen by Provider: 06/29/17 15:35 Notes: The patient is an 82-year-old male who presents with 2 days of dry cough, rhinorrhea and diffuse body aches. He did not get a flu shot this year. He denies chest pain, shortness of breath, nausea, vomiting, back pain, fevers, headaches, neck stiffness or abdominal pain. TRAVEL OUTSIDE OF THE [place] IN LAST 30 DAYS: No - Related Data Allergies/Adverse Reactions: No Known Allergies Allergy (Verified 09/18/16 01:51) Past Medical History - General Information source: Patient - Social History Smoking Status: Unknown if Ever Smoked Family History: Reviewed & Not Pertinent, COPD, Hypertension - Past Medical History Cardiac Medical History: Reports: Hx Hypercholesterolemia, Hx Hypertension Pulmonary Medical History: Reports: Hx COPD, Hx Pneumonia Renal/ Medical History: Denies: Hx Peritoneal Dialysis Psychiatric Medical History: Reports: Hx Dementia, Hx Depression Past Surgical History: Reports: Hx Oral Surgery, Hx Orthopedic Surgery - patellar fracture - Immunizations Hx Diphtheria, Pertussis, Tetanus Vaccination: Yes Hx Pneumococcal Vaccination: 02/12/10 Review of Systems - Review of Systems Notes: REVIEW OF SYSTEMS: CONSTITUTIONAL: -fevers, +chills EENT: -eye pain, -difficulty swallowing, -nasal congestion CARDIOVASCULAR: -chest pain, -syncope. RESPIRATORY: +cough, -SOB GASTROINTESTINAL: -abdominal pain, -nausea, -vomiting, -diarrhea GENITOURINARY: -dysuria, -hematuria MUSCULOSKELETAL: -back pain, -neck pain SKIN: -rash or skin lesions. HEMATOLOGIC: -easy bruising or bleeding. LYMPHATIC: -swollen, enlarged glands. NEUROLOGICAL: -altered mental status or loss of consciousness, -headache, - neurologic symptoms PSYCHIATRIC: -anxiety, -depression. ALL OTHER SYSTEMS REVIEWED AND NEGATIVE. Physical Exam - Notes Notes: PHYSICAL EXAMINATION: GENERAL: Well-appearing, well-nourished and in no acute distress. HEAD: Atraumatic, normocephalic. EYES: Pupils equal round and reactive to light, extraocular movements intact, sclera anicteric, conjunctiva are normal. ENT: nares patent, oropharynx clear without exudates. Moist mucous membranes. NECK: Normal range of motion, supple without lymphadenopathy LUNGS: Breath sounds clear to auscultation bilaterally and equal. Mild end- expiratory wheezing. HEART: Regular rate and rhythm without murmurs ABDOMEN: Soft, nontender, normoactive bowel sounds. No guarding, no rebound. No masses appreciated. EXTREMITIES: Normal range of motion, no pitting or edema. No cyanosis. NEUROLOGICAL: Cranial nerves grossly intact. Normal speech, normal gait. Normal sensory and motor exams. PSYCH: Normal mood, normal affect. SKIN: Warm, Dry, normal turgor, no rashes or lesions noted. Course - Re-evaluation Re-evalutation: Patient appears well. He is in no acute distress and after a single DuoNeb, his slight wheezing resolved. Blood work is unremarkable, flu test is negative and chest x-ray does not show any acute infiltrates. Patient ambulating without hypoxia and his vital signs remaining stable. Instructed him to continue to drink plenty of fluids and follow-up with his primary care physician for further evaluation and treatment. - Laboratory Result Diagrams: 06/29/17 14:45 06/29/17 16:08 Laboratory results interpreted by me: 06/29/17 06/29/17 14:45 16:08 Seg Neutrophils % 80.1 H Lymphocytes % 5.1 L Absolute Lymphocytes 0.4 L Sodium 135.6 L Chloride 97 L Glucose 141 H - Diagnostic Test Radiology reviewed: Image reviewed, Reports reviewed Radiology results interpreted by me: CXR: NAD Discharge - Discharge Clinical Impression: Cough URI (upper respiratory infection) Qualifiers: URI type: unspecified URI Qualified Code(s): J06.9 - Acute upper respiratory infection, unspecified Condition: Stable Disposition: HOME, SELF-CARE Additional Instructions: INFLUENZA: The physician feels that you have influenza -- the "flu". Influenza is an infection caused by a virus. Symptoms include generalized aching, fever, headache, dry cough, and fatigue. Some patients with the flu also have nausea, vomiting, and diarrhea. The fever and aches usually last two to four days, with the cough persisting another one to two weeks. Treatment of the flu, for the most part, is simply treatment of symptoms. Rest, drink plenty of fluids, and use acetaminophen for fever and aches. Do not take aspirin. There is an anti-viral medication, called Tamiflu, which may help in "type A" flu, but it's not helpful in every case of flu, and only works if started within the first 24 - 48 hours of the start of symptoms. The physician will determine whether this medication can help you. To prevent spread of the virus, use good handwashing. Shared toys should be cleaned with disinfectant. Clean the toilets, sinks, and counter surfaces in bathrooms. Launder clothing in hot water. What are conditions that should receive medical attention? The development of difficulty breathing. Lip color changes to blue or purple. Persistent vomiting and unable to keep liquids down with signs of dehydration such as: dizziness when standing, unable to urinate, or if child/infant is crying no tears are noticed. Is less responsive than normal or becomes confused. How do I decrease the spread of flu in my home? Taking care of the sick patient at home: Keep the sick person in a room separate from the common areas of the house. Keep the "sickroom" door closed. If the person with the flu needs to leave the home, they should cover their nose/mouth when coughing or sneezing and wear a disposable (surgical) mask if available. These masks may be available at your local pharmacy, medical supply and hardware store. If the sick person is in common areas of the house, have them wear a surgical mask. If possible, have the sick person use a separate bathroom that should be cleaned daily with a household disinfectant. If you are the caregiver: Avoid being face to face with the sick adult person as much as possible. Try to stay at least 6 feet away and wear a disposable surgical mask when possible. When holding small children who are sick, place their chin on your shoulder so that they will not cough in your face. Wash your hands after you touch the sick person or handle their tissues and laundry. Wear a mask if you leave home, as you may be infected from taking care of someone and not know it yet. Watch yourself and others in the home for flu symptoms and contact your doctor if symptoms occur. NOTE: Antiviral medication used to reduce the symptoms of the flu works only if taken within 48 hours, and best within 24 hours of symptom onset. Household Cleaning, laundry and waste disposal: Tissues and other disposable items used by the sick person should be thrown away in the trash. Wash your hands after touching these used items. No special waste disposal is required. Keep surfaces (especially bedside tables, bathroom surfaces, and toys for children) clean by wiping them down with a safe household disinfectant according to the directions on the product label. Per Center for Disease Control advice, most people will not receive testing to confirm flu. Also based on the person's health history and onset of symptoms, not all patients will receive prescriptions for antiviral medications. If you have questions related to this, please ask your healthcare provider. For more information, you can call the Centers for Disease Control and Prevention ([facility]) Hotline at 8-621-HPHApartment Adda This line is available in Welsh and Uzbek, 24 hours a day, 7 days a week. Or www.[employer] or www.cdc.gov Flu-Like Illness Home Instructions: The influenza virus infection can cause a wide rage of symptoms, including: Fever, cough, sore throat, body aches, headaches, chills, fatigue, with some patients reporting diarrhea and vomiting Like seasonal influenza A, H1N1 ("swine flu")in humans can vary in severity from mild to severe Severe illness with pneumonia, respiratory failure and even is possible Certain groups might be more likely to develop a severe illness from H1N1 infection. Sometimes bacterial infections may occur at the same time as or after infection with influenza viruses and lead to pneumonias, ear infections, or sinus infections. How Flu Spreads The main way that influenza viruses spread is through respiratory droplets of coughs and sneezes. This can happen when someone with the infection coughs or sneezes and the particles fly through the air and land on other people and surfaces. If the person covers their mouth and nose with their hand but does not wash their hands immediately, then these germs are passed onto the next object that they touch. People with Influenza A or suspected H1N1 (swine flu) who are cared for at home should: Check with their doctor about any special care that they might need if they are or have a health condition such as diabetes, heart disease, asthma or emphysema. Also, limit caregiver to one (if possible). women or those with chronic health conditions should not take care of the flu patient unless necessary. Check with their doctor about whether or not medications are needed that may lessen the symptoms of the flu. Stay at home until 24 hours fever free without the use of fever reducing medication. Get plenty of rest and avoid other healthy people in your home. Drink plenty of clear liquids to keep from getting dehydrated. Take medications like Tylenol (Acetaminophen), Advil/Motrin/Nuprin ( Ibuprofen) or Aleve (Naproxen) for fevers and aches. All children under the age of 18 years of age should not take aspirin or products containing aspirin (e.g. Pepto Bismol), as this can cause a rare serious illness called Renetta Syndrome. Over the counter medications for flu and colds may help, but it is very important to follow the package directions. Remember that the medicine may help the symptoms, but it will not help prevent others from getting sick if they are around you. Cover coughs and sneezes using your bent arm. Clean hands with soap and water or an alcohol-based hand rub often, especially after using tissues to cough or sneeze. Encourage hand washing frequently for all people living in the home! The sick person should not have visitors other than caregivers. Encourage concerned loved ones to call instead of visit. Avoid close contact with others-do not go to work or school while sick. USE OF ACETAMINOPHEN (Tylenol): Acetaminophen may be taken for pain relief or fever control. It's much safer than aspirin, offering a wider range of "safe" dosages. It is safe during . Some brand names are Tylenol, Panadol, Datril, Anacin 3, Tempra, and Liquiprin. Acetaminophen can be repeated every four hours. The following are maximum recommended dosages: WEIGHT Dose Drops Elixir Chewable( 80mg) (LBS.) drprs=droppers tsp=teaspoon 6 40 mg 0.4 ml (1/2) 6-11 80 mg 0.8 ml (full) tsp 1 tab 12-16 120 mg 1 1/2 drprs 3/4 tsp 1 1/2 tabs 17-23 160 mg 2 drprs 1 tsp 2 tabs 24-30 240 mg 3 drprs 1 1/2 tsp 3 tabs 30-35 320 mg 2 tsp 4 tabs 36-41 360 mg 2 1/4 tsp 4 1/2 tabs 42-47 400 mg 2 1/2 tsp 5 tabs 48-53 480 mg 3 tsp 6 tabs 54-59 520 mg 3 1/4 tsp 6 1/2 tabs 60-64 560 mg 3 1/2 tsp 7 tabs 65-70 600 mg 3 3/4 tsp 7 1/2 tabs 71-76 640 mg 4 tsp 8 tabs 77-82 720 mg 4 1/2 tsp 9 tabs 83-88 800 mg 5 tsp 10 tabs >89 pounds or adults 650 mg to 900 mg Acetaminophen can be repeated every four hours. Maximum dose not to exceed 4000 mg a day. These maximum recommended dosages are slightly higher than the dosages written on the product container, but these dosages are very safe and below the toxic dosage for acetaminophen. FOLLOW-UP CARE: If you have been referred to a physician for follow-up care, call the physician s office for an appointment as you were instructed or within the next two days. If you experience worsening or a significant change in your symptoms, notify the physician immediately or return to the Emergency Department at any time for re-evaluation. Prescriptions: Albuterol Sulfate [Proair HFA Inhalation Aerosol 8.5 gm MDI] 2 puff IH Q4H PRN # 1 mdi PRN Reason:
[2017-06-29 16:45] LABS: ALANINE AMINOTRANSFERASE 41 U/L (21-72); ALBUMIN 3.8 g/dL (3.5-5.0); ALKALINE PHOSPHATASE 68 U/L (38-126); ANION GAP 11 (5-19); ASPARTATE AMINO TRANSFERASE 25 U/L (17-59); BILIRUBIN,DIRECT 0.4 mg/dL (0.0-0.4); BILIRUBIN,TOTAL 0.4 mg/dL (0.2-1.3); BLOOD UREA NITROGEN 17 mg/dL (7-20); CALCIUM 9.4 mg/dL (8.4-10.2); CARBON DIOXIDE 28 mmol/L (22-30); CHLORIDE 97 mmol/L (98-107); CREATINE KINASE 128 U/L (55-170); GLUCOSE 141 mg/dL (75-110); POTASSIUM 4.4 mmol/L (3.6-5.0); SODIUM 135.6 mmol/L (137-145); TOTAL PROTEIN 6.7 g/dL (6.3-8.2)
--- NOTE | 2017-06-29 17:40 | RADIOLOGY REPORT (SQ) ---
EXAM DESCRIPTION: CHEST SINGLE VIEW COMPLETED DATE/TIME: 06/29/2017 4:11 pm REASON FOR STUDY: cough COMPARISON: 06/24/2017. EXAM PARAMETERS: NUMBER OF VIEWS: One view. TECHNIQUE: Single frontal radiographic view of the chest acquired. RADIATION DOSE: NA LIMITATIONS: None. FINDINGS: LUNGS AND PLEURA: No acute infiltrates or effusions. MEDIASTINUM AND HILAR STRUCTURES: No masses. Contour normal. HEART AND VASCULAR STRUCTURES: The heart is normal with normal pulmonary vasculature. BONES: No acute findings. HARDWARE: None in the chest. OTHER: Chest leads in place. IMPRESSION: NO ACUTE DISEASE. TECHNICAL DOCUMENTATION: JOB ID: [id number] 2010 [employer]- All Rights Reserved
[2017-06-29 18:28] VITALS: BP 109/77
== END 2017-06-29 18:28 | disposition home or self-care (01) ==
LOC: ER 15:08
DX: J06.9 Acute upper respiratory infection, unspecified (principal); J44.9 Chronic obstructive pulmonary disease, unspecified; R05 Cough; J34.89 Other specified disorders of nose and nasal sinuses; R52 Pain, unspecified; I10 Essential (primary) hypertension; Z87.01 Personal history of pneumonia (recurrent); R68.83 Chills (without fever)
CPT/HCPCS: 94640; 99284; 36415; 82550; 85025; 80053; 87804; 71045; A9270; J7620

== ENCOUNTER 2017-06-30 07:59 | Inpatient (IN) | payer MEDICARE, OTHER ==
--- NOTE | 2017-06-30 09:02 | ER Document Report ---
ED Dizziness/Weakness - General Mode of Arrival: Ambulatory Information source: Patient, Emergency Med Personnel TRAVEL OUTSIDE OF THE [place] IN LAST 30 DAYS: No <BRISSA KEYES - Last Filed: 06/30/17 16:12> <JUAN PABLO ALLEN - Last Filed: 06/30/17 16:15> - General Chief Complaint: General Weakness Stated Complaint: WEAKNESS Time Seen by Provider: 06/30/17 08:48 Notes: Patient is an 82 year old male with a history of hypertension presents to the emergency department via EMS from home complaining of general weakness. Patient states "I feel like I am on my last leg". When asked why he was here he further stated that his sent him here. Patient also complains of suprapubic pain stating he has not urinated in days. Patient denies chest pain, trouble breathing, nausea, vomiting, or diarrhea. Patient was last seen in the emergency department yesterday and discharged for flu like symptoms. Patient denies a history of strokes of heart attacks. Patients PCP is Dr. Rios. (BRISSA KEYES) - Related Data Allergies/Adverse Reactions: No Known Allergies Allergy (Verified 09/18/16 01:51) Past Medical History - General Information source: Patient - Social History Smoking Status: Never Smoker Cigarette use (# per day): No Chew tobacco use (# tins/day): No Smoking Education Provided: No Frequency of alcohol use: None Drug Abuse: None Family History: Reviewed & Not Pertinent, COPD, Hypertension - Past Medical History Cardiac Medical History: Reports: Hx Hypercholesterolemia, Hx Hypertension Pulmonary Medical History: Reports: Hx COPD, Hx Pneumonia Psychiatric Medical History: Reports: Hx Dementia, Hx Depression Past Surgical History: Reports: Hx Oral Surgery, Hx Orthopedic Surgery - patellar fracture - Immunizations Hx Diphtheria, Pertussis, Tetanus Vaccination: Yes Hx Pneumococcal Vaccination: 02/12/10 <BRISSA KEYES - Last Filed: 06/30/17 16:12> Review of Systems - Review of Systems Constitutional: See HPI, Weakness EENT: No symptoms reported Cardiovascular: No symptoms reported Respiratory: No symptoms reported Gastrointestinal: Abdominal pain Genitourinary: See HPI, Retention Male Genitourinary: No symptoms reported Musculoskeletal: No symptoms reported Skin: No symptoms reported Hematologic/Lymphatic: No symptoms reported Neurological/Psychological: No symptoms reported -: Yes All other systems reviewed and negative <BRISSA KEYES - Last Filed: 06/30/17 16:12> Physical Exam <BRISSA KEYES - Last Filed: 06/30/17 16:12> <JUAN PABLO ALLEN - Last Filed: 06/30/17 16:15> - Vital signs Vitals: Resp BP Pulse Ox 18 175/74 H 94 06/30/17 08:15 06/30/17 08:15 06/30/17 08:15 - Notes Notes: GENERAL: Alert, interacts well. No acute distress. Appears fatigue. HEAD: Normocephalic, atraumatic. EYES: Pupils equal, round, and reactive to light. Extraocular movements intact. ENT: Oral mucosa moist, tongue midline. NECK: Full range of motion. Supple. Trachea midline. LUNGS: Clear to auscultation bilaterally, no wheezes or rales. Slight inspiratory rhonchi in the lower left lobe. No respiratory distress. HEART: Regular rate and rhythm. No murmurs, gallops, or rubs. ABDOMEN: Soft, Lower abdomen distended and tender to palpation, this resolved after Berry catheterization. Bowel sounds present in all 4 quadrants. EXTREMITIES: Moves all 4 extremities spontaneously. No edema, radial and dorsalis pedis pulses 2/4 bilaterally. No cyanosis. NEUROLOGICAL: Alert and oriented to person and place. Knows that Zeenat is President but thinks he is 72 and the year is 1984. Normal speech. PSYCH: Normal affect, normal mood. SKIN: Warm, dry, normal turgor. No rashes or lesions noted. : Urine is very dark. (BRISSA KEYES) Course - Laboratory Result Diagrams: 06/30/17 08:17 06/30/17 08:17 <BRISSA KEYES - Last Filed: 06/30/17 16:12> - Laboratory Result Diagrams: 06/30/17 08:17 06/30/17 08:17 <JUAN PABLO ALLEN - Last Filed: 06/30/17 16:15> - Re-evaluation Re-evalutation: 06/30/17 11:32 CBC shows marked change and now has a leukocytosis of 15.8, BUN has increased as well to 23, elevated glucose at 249, negative troponin 0 0.026, TSH elevated , T3 and T4 normal, urinalysis now has 20 of ketones and large blood however there is only [address] scan of the head shows chronic microvascular ischemia , chest x-ray shows left lower lobe pneumonitis. In the setting of confusion, cough, leukocytosis patient will be treated with Levaquin. This was discussed with Dr. Zapata he agrees to admit the patient to his service on the telemetry care floor. 06/30/17 11:34 Dr. Zapata will continue to follow the hypertension as an inpatient. (JUAN PABLO ALLEN) - Vital Signs Vital signs: Temp Pulse Resp BP Pulse Ox 97.7 F 90 17 175/74 H 93 06/30/17 08:28 06/30/17 09:08 06/30/17 09:08 06/30/17 08:28 06/30/17 08:28 - Laboratory Laboratory results interpreted by me: 06/30/17 06/30/17 06/30/17 08:17 08:17 08:17 WBC 15.8 H D Seg Neuts % (Manual) 87 H Band Neutrophils % 6 H Lymphocytes % (Manual) 1 L Abs Neuts (Manual) 14.7 H Abs Lymphs (Manual) 0.2 L Sodium 134.3 L Chloride 97 L Carbon Dioxide 21 L BUN 23 H Glucose 249 H Direct Bilirubin 0.5 H Creatine Kinase 171 H TSH 5.95 H Urine Protein Urine Glucose (UA) Urine Ketones Urine Blood 06/30/17 08:56 WBC Seg Neuts % (Manual) Band Neutrophils % Lymphocytes % (Manual) Abs Neuts (Manual) Abs Lymphs (Manual) Sodium Chloride Carbon Dioxide BUN Glucose Direct Bilirubin Creatine Kinase TSH Urine Protein >=500 H Urine Glucose (UA) 50 H Urine Ketones 20 H Urine Blood LARGE H - EKG Interpretation by Me Additional EKG results interpreted by me: 06/30/17 11:32 EKG shows sinus rhythm at a rate of 87, normal axis, normal intervals, no ST segment elevations or depressions, slight T-wave flattening in lead I and aVL per my interpretation. (JUAN PABLO ALLEN) Discharge <BRISSA KEYES - Last Filed: 06/30/17 16:12> - Discharge Admitting Provider: Jodi Unit Admitted: Telemetry <JUAN PABLO ALLEN - Last Filed: 06/30/17 16:15> - Discharge Clinical Impression: Left lower lobe pneumonia Qualifiers: Pneumonia type: due to unspecified organism Qualified Code(s): J18.1 - Lobar pneumonia, unspecified organism Hypertension Qualifiers: Hypertension type: essential hypertension Qualified Code(s): I10 - Essential ( primary) hypertension Condition: Fair Disposition: ADMITTED INPATIENT Scribe Attestation: 06/30/17 16:15 I personally performed the services described in the documentation, reviewed and edited the documentation which was dictated to the scribe in my presence, and it accurately records my words and actions. (JUAN PABLO ALLEN) Scribe Documentation - Scribe Written by Boazibe:: Vanesa Lo, 06/30/2017 09:09 acting as scribe for :: Anjel <BRISSA KEYES - Last Filed: 06/30/17 16:12>
[2017-06-30 09:10] LABS: ALANINE AMINOTRANSFERASE 31 U/L (21-72); ALBUMIN 3.8 g/dL (3.5-5.0); ALKALINE PHOSPHATASE 65 U/L (38-126); ANION GAP 16 (5-19); ASPARTATE AMINO TRANSFERASE 31 U/L (17-59); BILIRUBIN,DIRECT 0.5 mg/dL (0.0-0.4); BILIRUBIN,TOTAL 0.7 mg/dL (0.2-1.3); BLOOD UREA NITROGEN 23 mg/dL (7-20); CALCIUM 9.5 mg/dL (8.4-10.2); CARBON DIOXIDE 21 mmol/L (22-30); CHLORIDE 97 mmol/L (98-107); CREATINE KINASE 171 U/L (55-170); GLUCOSE 249 mg/dL (75-110); POTASSIUM 4.1 mmol/L (3.6-5.0); SODIUM 134.3 mmol/L (137-145); TOTAL PROTEIN 6.7 g/dL (6.3-8.2)
[2017-06-30 09:17] LABS: HEMATOCRIT 43.2 % (37.9-51.0); HEMOGLOBIN 14.5 g/dL (13.5-17.0); MEAN CORPUSCULAR HEMOGLOBIN 31.7 pg (27.0-33.4); MEAN CORPUSCULAR HGB CONC 33.5 g/dL (32.0-36.0); MEAN CORPUSCULAR VOLUME 95 fl (80-97); PLATELET COUNT 249 10^3/uL (150-450); RED BLOOD COUNT 4.57 10^6/uL (4.35-5.55); RED CELL DISTRIBUTION WIDTH 13.6 % (11.5-14.0)
[2017-06-30 09:18] LABS: WHITE BLOOD COUNT 15.8 10^3/uL (4.0-10.5)
[2017-06-30 09:22] LABS: CREATINE KINASE MB 1.19 ng/mL (<4.55); TROPONIN I 0.026 ng/mL
--- NOTE | 2017-06-30 09:24 | RADIOLOGY REPORT (SQ) ---
EXAM DESCRIPTION: CT HEAD WITHOUT COMPLETED DATE/TIME: 06/30/2017 9:17 am REASON FOR STUDY: fatigued, altered, on plavix, r/o bleed COMPARISON: 06/24/2017 TECHNIQUE: Axial images acquired through the brain without intravenous contrast. Images reviewed wi th bone, brain and subdural windows. Images stored on PACS. All CT scanners at this facility use dose modulation, iterative reconstruction, and/or weight based d osing when appropriate to reduce radiation dose to as low as reasonably achievable (ALARA). [facility]: Dose Right [facility]: CareDose [facility]: Dose Right [facility]: Teradose 4D [facility]: KakKstati RADIATION DOSE: CT Rad equipment meets quality standard of care and radiation dose reduction techniq ues were employed. CTDIvol: 64.6 mGy. DLP: 1163 mGy-cm.mGy. LIMITATIONS: None. FINDINGS: VENTRICLES: Prominent. CEREBRUM: No masses. No hemorrhage. No midline shift. Areas of low density in the white matter mos t likely due to chronic micro-vascular ischemic change. No evidence for acute infarction. CEREBELLUM: No masses. No hemorrhage. No alteration of density. No evidence for acute infarction. EXTRAAXIAL SPACES: Age-related involutional change. No fluid collections. No masses. ORBITS AND GLOBE: No intra- or extraconal masses. Normal contour of globe without masses. CALVARIUM: No fracture. PARANASAL SINUSES: No fluid or mucosal thickening. SOFT TISSUES: No mass or hematoma. OTHER: No other significant finding. IMPRESSION: CHRONIC CHANGES OF ATROPHY AND MICROVASCULAR ISCHEMIA. NO ACUTE PROCESS. EVIDENCE OF ACUTE STROKE: NO. TECHNICAL DOCUMENTATION: JOB ID: [id number] Quality ID # [id number]: Final reports with documentation of one or more dose reduction techniques (e.g., Au tomated exposure control, adjustment of the mA and/or kV according to patient size, use of iterative reconstruction technique) 2010 [employer]- All Rights Reserved
[2017-06-30 09:27] LABS: APPEARANCE,URINE SLIGHTLY-CLOUDY; BILIRUBIN,URINE NEGATIVE (NEGATIVE); COLOR,URINE YELLOW; GLUCOSE, URINE 50 mg/dL (NEGATIVE); KETONES,URINE 20 mg/dL (NEGATIVE); LEUKOCYTE ESTERASE,URINE NEGATIVE (NEGATIVE); NITRITE,URINE NEGATIVE (NEGATIVE); PROTEIN,URINE >=500 mg/dL (NEGATIVE); URINE SPECIFIC GRAVITY 1.025; UROBILINOGEN,URINE NEGATIVE mg/dL (<2.0)
[2017-06-30 09:28] LABS: AMORPHOUS SEDIMENT,URINE TRACE /HPF
--- NOTE | 2017-06-30 09:32 | RADIOLOGY REPORT (SQ) ---
EXAM DESCRIPTION: CHEST PA/LAT COMPLETED DATE/TIME: 06/30/2017 9:24 am REASON FOR STUDY: fatigued, SOB, cough COMPARISON: 06/15/2014 EXAM PARAMETERS: NUMBER OF VIEWS: two views TECHNIQUE: Digital Frontal and Lateral radiographic views of the chest acquired. RADIATION DOSE: NA LIMITATIONS: none FINDINGS: LUNGS AND PLEURA: Left basilar opacity. Right lung is clear. MEDIASTINUM AND HILAR STRUCTURES: No masses or contour abnormalities. HEART AND VASCULAR STRUCTURES: Heart normal size. No evidence for failure. BONES: No acute findings. HARDWARE: None in the chest. OTHER: No other significant finding. IMPRESSION: Left lower lobe pneumonitis. TECHNICAL DOCUMENTATION: JOB ID: [id number] [employer]- All Rights Reserved
[2017-06-30 09:50] LABS: ABSOLUTE LYMPHOCYTES# (MANUAL) 0.2 10^3/uL (0.5-4.7); ABSOLUTE MONOCYTES # (MANUAL) 0.9 10^3/uL (0.1-1.4); ABSOLUTE NEUTROPHILS# (MANUAL) 14.7 10^3/uL (1.7-8.2); BAND NEUTROPHILS % (MANUAL) 6 % (3-5); BASOPHILS % (MANUAL) 0 % (0-2); EOSINOPHILS % (MANUAL) 0 % (0-6); LYMPHOCYTES % (MANUAL) 1 % (13-45); MONOCYTES % (MANUAL) 6 % (3-13); PLATELET COMMENT ADEQUATE; SEGMENTED NEUTROPHILS % (MAN) 87 % (42-78); TOTAL CELLS COUNTED 100; TOXIC GRANULATION SLIGHT; TOXIC VACUOLATION PRESENT
[2017-06-30 09:51] LABS: RBC MORPHOLOGY COMMENT NORMO-CYTIC/CHROMIC
[2017-06-30 10:19] LABS: FREE T3 2.94 pg/mL (2.77-5.27); FREE T4 (FREE THYROXINE) 1.07 ng/dL (0.78-2.19)
--- NOTE | 2017-06-30 10:57 | EKG REPORT ---
SEVERITY:- NORMAL ECG - SINUS RHYTHM : Confirmed by: Rocco Aaron 30-Jun-2017 10:56:52
[2017-06-30 11:12] LABS: THYROID STIMULATING HORMONE 5.95 uIU/mL (0.47-4.68)
[2017-06-30] MEDS ORDERED: LEVOFLOXACIN 750 MG/D5W RTU 750 MG/150 ML RTUPB IV ONE (11:23)
[2017-06-30 14:46] LABS: CREATINE KINASE MB 1.27 ng/mL (<4.55); TROPONIN I 0.03 ng/mL
[2017-06-30] MEDS ORDERED: ENOXAPARIN SODIUM INJ 40 MG/0.4 ML DISP.SYRIN SUBCUT ONE (15:30)
[2017-06-30 17:23] LABS: ARTERIAL BLOOD BASE EXCESS 3.2 mmol/L; ARTERIAL BLOOD H2CO3 1.04 mmol/L (1.05-1.35); ARTERIAL BLOOD HCO3 26.1 mmol/L (20-26); ARTERIAL BLOOD O2 SATURATION 92.4 % (94-98); ARTERIAL BLOOD PCO2 34.4 mmHg (35-45); ARTERIAL BLOOD PO2 57.7 mmHg (80-100); ARTERIAL BLOOD TOTAL CO2 27.2 mmol/L (23-27)
[2017-06-30 17:24] LABS: ARTERIAL BLOOD FIO2 ROOM AIR
[2017-06-30 17:33] LABS: APPEARANCE,URINE CLOUDY; BILIRUBIN,URINE NEGATIVE (NEGATIVE); COLOR,URINE AMBER; GLUCOSE, URINE >=500 mg/dL (NEGATIVE); KETONES,URINE TRACE mg/dL (NEGATIVE); LEUKOCYTE ESTERASE,URINE NEGATIVE (NEGATIVE); NITRITE,URINE NEGATIVE (NEGATIVE); PROTEIN,URINE >=500 mg/dL (NEGATIVE); URINE SPECIFIC GRAVITY 1.028; UROBILINOGEN,URINE NEGATIVE mg/dL (<2.0)
--- NOTE | 2017-06-30 17:59 | RADIOLOGY REPORT (SQ) ---
EXAM DESCRIPTION: MRI HEAD WITHOUT COMPLETED DATE/TIME: 06/30/2017 5:42 pm REASON FOR STUDY: new onset left side weakness COMPARISON: Head CT from 06/30/2017. TECHNIQUE: Multiplanar imaging includes non-contrasted T1, T2, FLAIR, and diffusion with ADC map seq uences. Images stored on PACS. LIMITATIONS: None. FINDINGS: ANATOMY: No anomalies. Normal vascular flow voids. Pituitary fossa normal. CSF SPACES: Normal in size and contour. No hemorrhage. CEREBRUM: Sulci and gyri normal in size and contour. Normal white matter signal on FLAIR imaging. No evidence of hemorrhage, mass, or extraaxial fluid collection. POSTERIOR FOSSA: No signal alteration. No hemorrhage. No edema, masses or mass effect. Internal moses tory canals, cerebello-pontine angles, mastoids normal. DIFFUSION IMAGING: Small area of restricted diffusion involving the periventricular white matter righ t posterior frontal lobe series 5, image 19 compatible with acute lacunar-type infarct. No large ter ritory infarction. ORBITS: No masses. Globes normal. PARANASAL SINUSES: No fluid levels. Mucosa normal. OTHER: No other significant finding. IMPRESSION: ACUTE LACUNAR-TYPE INFARCT INVOLVING THE RIGHT PERIVENTRICULAR WHITE MATTER PRESUMABLY A CCOUNTING FOR NEW ONSET LEFT-SIDED WEAKNESS. NO LARGE TERRITORY INFARCTION, HEMORRHAGE, OR MASS LESI ON. EVIDENCE OF ACUTE STROKE: YES. LENTICULOSTRIATE. TECHNICAL DOCUMENTATION: JOB ID: [id number] [employer]- All Rights Reserved
[2017-06-30] MEDS ORDERED: LISINOPRIL 10 MG TABLET PO SCH (18:00)
[2017-06-30] MEDS ORDERED: CEFEPIME 2 GM/D5W RTU 2 GM/50 ML RTUPB IV SCH (18:00)
[2017-06-30] MEDS ORDERED: (PENDING PHARMACY ID) (Memantine Hcl/Donepezil Hcl [Namzaric 28 Mg-10 Mg Capsule] 1 CAP) PO SCH (18:00)
[2017-06-30] MEDS ORDERED: ASPIRIN 81 MG TABLET, ENT COATED PO SCH (18:00)
[2017-06-30] MEDS ORDERED: ASPIRIN/DIPYRIDAMOLE 25-200 MG 1 CAP.SR CPMP.12HR PO ONE (19:30)
[2017-06-30] MEDS ORDERED: INFLUENZA ADLT QUAD (36MOS+) 2017-18 VAC 0.5 ML SYR IM PRN (20:19)
--- NOTE | 2017-06-30 20:24 | PDOC H&P ---
History of Present Illness Admission Date/PCP: 06/30/17 13:07 JENNIFER TYSON MD History of Present Illness: ALYSE ÁLVAREZ is a 82 year old male He has a history of hypertension, dementia, coronary artery disease, he came to the emergency room earlier today for evaluation of generalized body weakness, patient stated according to the medical record emergency room that "he feels like he is on his last leg". He was last seen in the emergency room yesterday for evaluation of flulike symptoms. He was evaluated he was found to have leukocytosis with white blood cell count 15.82 thousand. The chest x-ray showed left lower lobe pneumonia because patient was confused CT head was done in the emergency room showed chronic changes of atrophy there is no acute change. I received a call from the from the emergency room physician that patient needed to be admitted to the hospital. While he was in the emergency room with you for a bed on the medical floor the nursing staff noticed that patient left side was weak and he was slurred speech, a stat MRI of the head was done, it showed acute lacunar type infarct involving the right periventricular white matter there is no large territory infarction no hemorrhage or mass lesion. There was a concern initially that it could be hemorrhage patient was not considered to be a candidate for TPA because of the concern for hemorrhage Past Medical History Cardiac Medical History: Reports: Coronary Artery Disease, Hyperlipidema, Hypertension Pulmonary Medical History: Reports: Chronic Obstructive Pulmonary Disease (COPD) , Pneumonia Psychiatric Medical History: Reports: Dementia, Depression Past Surgical History Past Surgical History: Reports: Orthopedic Surgery - patellar fracture Social History Smoking Status: Current Every Day Smoker Last Time Smoked: 06/27/17 Frequency of Alcohol Use: None Hx Recreational Drug Use: No Drugs: None Hx Prescription Drug Abuse: No - Advance Directive Resuscitation Status: Full Code Family History Family History: Reviewed & Not Pertinent, COPD, Hypertension Parental Family History Reviewed: Yes Children Family History Reviewed: Yes Sibling(s) Family History Reviewed.: Yes Medication/Allergy Home Medications: Aspirin [Adult Low Dose Aspirin EC] 81 mg PO DAILY 06/30/17 Atorvastatin Calcium [Lipitor 20 mg Tablet] 20 mg PO QHS 06/30/17 Clopidogrel Bisulfate [Plavix 75 mg Tablet] 75 mg PO DAILY 06/30/17 Docusate Sodium [Colace 100 mg Capsule] 100 mg PO BID 06/30/17 Finasteride [Proscar 5 mg Tablet] 5 mg PO DAILY 06/30/17 Lisinopril [Prinivil 10 mg Tablet] 20 mg PO DAILY 06/30/17 Memantine HCl/Donepezil HCl [Namzaric 28 mg-10 mg Capsule] 1 cap PO QPM Metoprolol Succinate [Toprol Xl] 25 mg PO DAILY 06/30/17 Tamsulosin HCl [Flomax 0.4 mg Cap.sr] 0.4 mg PO DAILY 06/30/17 Allergies/Adverse Reactions: No Known Allergies Allergy (Verified 09/18/16 01:51) Review of Systems All systems: as per PMH Cardiovascular: ABSENT: as per HPI, chest pain, dyspnea on exertion, edema, orthropnea, palpitations, other Gastrointestinal: ABSENT: as per HPI, abdominal pain, bloating, coffee ground emesis, constipation, diarrhea, dysphagia, heartburn, hematemesis, hematochezia , melena, nausea, vomiting, other Genitourinary: ABSENT: as per HPI, difficulty urinating, dysuria, hematuria, nocturia, other Musculoskeletal: ABSENT: as per HPI, back pain, deformity, joint swelling, muscle weakness, other Integumentary: ABSENT: as per HPI, diaphoresis, erythema, lesions, pruritus, rash, wounds, other Neurological: PRESENT: abnormal speech Endocrine: ABSENT: as per HPI, cold intolerance, flushing, heat intolerance, menstrual abnormalities, polydipsia, polyphagia, polyuria, other Physical Exam Vital Signs: Temp Pulse Resp BP Pulse Ox 97.7 F 83 22 H 131/54 H 92 06/30/17 08:28 06/30/17 16:00 06/30/17 18:05 06/30/17 18:05 06/30/17 18:05 Intake & Output 06/29/17 06/30/17 07/01/17 06:59 06:59 06:59 Weight 77 kg General appearance: PRESENT: no acute distress Head exam: PRESENT: atraumatic, normocephalic Eye exam: PRESENT: PERRLA. ABSENT: scleral icterus Ear exam: PRESENT: normal external ear exam Mouth exam: PRESENT: moist, tongue midline Neck exam: PRESENT: full ROM Respiratory exam: PRESENT: clear to auscultation luis miguel Cardiovascular exam: PRESENT: RRR, +S1, +S2 Pulses: PRESENT: normal dorsalis pedis pul, +2 pedal pulses bilateral Vascular exam: PRESENT: normal capillary refill GI/Abdominal exam: PRESENT: normal bowel sounds, soft Rectal exam: PRESENT: deferred Neurological exam: PRESENT: alert, motor sensory deficit - Left-sided hemiparesis Skin exam: PRESENT: dry, intact, warm. ABSENT: cyanosis, rash Results Laboratory Results: 06/30/17 06/30/17 17:00 17:00 Carbonic Acid 1.04 L HCO3/H2CO3 Ratio 25:1 ABG pH 7.50 H ABG pCO2 34.4 L ABG pO2 57.7 L ABG HCO3 26.1 H ABG O2 Saturation 92.4 L ABG Base Excess 3.2 FiO2 ROOM AIR Urine Color DELROY Urine Appearance CLOUDY Urine pH 5.0 Ur Specific [place] 1.028 Urine Protein >=500 H Urine Glucose (UA) >=500 H Urine Ketones TRACE H Urine Blood LARGE H Urine Nitrite NEGATIVE Ur Leukocyte Esterase NEGATIVE Urine WBC (Auto) 55 Urine RBC (Auto) 93 06/30/17 06/30/17 13:45 13:45 Creatine Kinase 139 CK-MB (CK-2) 1.27 Troponin I 0.030 NT-Pro-B Natriuret Pep 1290 H Impressions: Head MRI 06/30/17 00:00 IMPRESSION: ACUTE LACUNAR-TYPE INFARCT INVOLVING THE RIGHT PERIVENTRICULAR WHITE MATTER PRESUMABLY ACCOUNTING FOR NEW ONSET LEFT-SIDED WEAKNESS. NO LARGE TERRITORY INFARCTION, HEMORRHAGE, OR MASS LESION. EVIDENCE OF ACUTE STROKE: YES. LENTICULOSTRIATE. Chest X-Ray 06/30/17 08:59 IMPRESSION: Left lower lobe pneumonitis. Head CT 06/30/17 09:01 IMPRESSION: CHRONIC CHANGES OF ATROPHY AND MICROVASCULAR ISCHEMIA. NO ACUTE PROCESS. EVIDENCE OF ACUTE STROKE: NO. 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 Is this a current diagnosis for this admission?: Yes Plan: Patient is admitted to be manage for CVA according to stroke protocol (3) Left lower lobe pneumonia Qualifiers: Pneumonia type: due to unspecified organism Qualified Code(s): J18.1 - Lobar pneumonia, unspecified organism Is this a current diagnosis for this admission?: Yes Plan: Patient to be treated with IV antibiotic to cover community-acquired pneumonia (4) Dementia Qualifiers: Dementia type: Alzheimer's disease Alzheimer's disease onset: unspecified onset Dementia behavioral disturbance: without behavioral disturbance Qualified Code(s): G30.9 - Alzheimer's disease, unspecified; F02.80 - Dementia in other diseases classified elsewhere without behavioral disturbance; F02.80 - Dementia in other diseases classified elsewhere without behavioral disturbance; F02.80 - Dementia in other diseases classified elsewhere without behavioral disturbance Is this a current diagnosis for this admission?: Yes
[2017-06-30] MEDS: METOPROLOL SUCCINATE 25 MG TAB.SR.24H PO SCH (20:54)
[2017-06-30] MEDS: CLOPIDOGREL BISULFATE 75 MG TABLET PO SCH (20:55)
[2017-06-30] MEDS: FINASTERIDE 5 MG TABLET PO SCH (20:57)
[2017-06-30] MEDS: DOCUSATE SODIUM 100 MG CAPSULE PO SCH (20:57)
[2017-06-30] MEDS: TAMSULOSIN HCL 0.4 MG CAP.SR.24H PO SCH (20:58)
[2017-06-30] MEDS: NORMAL SALINE 1000 ML 1,000 ML IV PRN (21:00)
[2017-06-30] MEDS: ATORVASTATIN CALCIUM 20 MG TABLET PO SCH (21:00)
[2017-06-30] MEDS: CEFEPIME HCL 2 GM in NORMAL SALINE 100 ML IV SCH (23:10)
[2017-07-01 05:30] LABS: MEAN CORPUSCULAR HEMOGLOBIN 31.9 pg (27.0-33.4); MEAN CORPUSCULAR HGB CONC 33.8 g/dL (32.0-36.0); MEAN CORPUSCULAR VOLUME 94 fl (80-97); PLATELET COUNT 196 10^3/uL (150-450); RED BLOOD COUNT 3.83 10^6/uL (4.35-5.55); RED CELL DISTRIBUTION WIDTH 13.5 % (11.5-14.0); WHITE BLOOD COUNT 15.6 10^3/uL (4.0-10.5)
[2017-07-01 05:45] LABS: ALANINE AMINOTRANSFERASE 24 U/L (21-72); ALBUMIN 2.8 g/dL (3.5-5.0); ALKALINE PHOSPHATASE 52 U/L (38-126); ANION GAP 13 (5-19); ASPARTATE AMINO TRANSFERASE 22 U/L (17-59); BILIRUBIN,DIRECT 0.1 mg/dL (0.0-0.4); BILIRUBIN,TOTAL 0.5 mg/dL (0.2-1.3); CARBON DIOXIDE 22 mmol/L (22-30); CHLORIDE 100 mmol/L (98-107); GLUCOSE 179 mg/dL (75-110); POTASSIUM 3.9 mmol/L (3.6-5.0); SODIUM 135.3 mmol/L (137-145); TOTAL PROTEIN 5.4 g/dL (6.3-8.2)
[2017-07-01 06:03] LABS: BLOOD UREA NITROGEN 44 mg/dL (7-20)
[2017-07-01 06:11] LABS: ABSOLUTE LYMPHOCYTES# (MANUAL) 0.6 10^3/uL (0.5-4.7); ABSOLUTE MONOCYTES # (MANUAL) 1.2 10^3/uL (0.1-1.4); ABSOLUTE NEUTROPHILS# (MANUAL) 13.7 10^3/uL (1.7-8.2); BAND NEUTROPHILS % (MANUAL) 5 % (3-5); BASOPHILS % (MANUAL) 0 % (0-2); EOSINOPHILS % (MANUAL) 0 % (0-6); LYMPHOCYTES % (MANUAL) 4 % (13-45); MONOCYTES % (MANUAL) 8 % (3-13); SEGMENTED NEUTROPHILS % (MAN) 83 % (42-78); TOTAL CELLS COUNTED 100
[2017-07-01 06:12] LABS: RBC MORPHOLOGY COMMENT NORMO-CYTIC/CHROMIC
[2017-07-01 06:13] LABS: PLATELET COMMENT ADEQUATE
[2017-07-01 06:14] LABS: HEMOGLOBIN 12.2 g/dL (13.5-17.0)
[2017-07-01] MEDS ORDERED: ENOXAPARIN SODIUM INJ 40 MG/0.4 ML DISP.SYRIN SUBCUT SCH (10:00)
[2017-07-01] MEDS ORDERED: ASPIRIN/DIPYRIDAMOLE 25-200 MG 1 CAP.SR CPMP.12HR PO SCH (10:00)
[2017-07-01] MEDS: ENOXAPARIN SODIUM INJ 40 MG/0.4 ML DISP.SYRIN SUBCUT SCH (11:30)
[2017-07-01] MEDS: LEVOFLOXACIN 750 MG/D5W RTU 750 MG/150 ML RTUPB IV SCH (11:30)
[2017-07-01] MEDS: DOCUSATE SODIUM 100 MG CAPSULE PO SCH ×2 (11:30→18:55)
[2017-07-01] MEDS: CEFEPIME HCL 2 GM in NORMAL SALINE 100 ML IV SCH ×2 (11:31→23:00)
--- NOTE | 2017-07-01 16:57 | PDOC PROGRESS REPORT ---
Subjective Progress Note for:: 07/01/17 Subjective:: Patient continue to demonstrate left sided weakness and slurred speech. He failed his swallowing test earlier today. There is complain of lower abdominal region pain. No nausea or vomiting. No reported fever or chills. Reason For Visit: ACUTE CVA Physical Exam Vital Signs: Temp Pulse Resp BP Pulse Ox 98.3 F 88 16 135/52 H 96 07/01/17 15:12 07/01/17 15:12 07/01/17 15:12 07/01/17 15:12 07/01/17 15:12 Intake & Output 06/30/17 07/01/17 07/02/17 06:59 06:59 06:59 Intake Total 828 100 Output Total 125 200 Balance 703 -100 Weight 76.7 kg General appearance: PRESENT: no acute distress Head exam: PRESENT: atraumatic, normocephalic Eye exam: PRESENT: conjunctiva pink, EOMI, PERRLA. ABSENT: scleral icterus Mouth exam: PRESENT: moist - fairly Respiratory exam: PRESENT: crackles - scattered bilaterally, decreased breath sounds - at lung bases Cardiovascular exam: PRESENT: RRR. ABSENT: diastolic murmur, rubs, systolic murmur Vascular exam: PRESENT: normal capillary refill. ABSENT: pallor GI/Abdominal exam: PRESENT: normal bowel sounds, soft. ABSENT: distended, guarding, mass, organolmegaly, rebound, tenderness Extremities exam: ABSENT: pedal edema Musculoskeletal exam: PRESENT: deformity - related to multiple joints involvment with arthritis Neurological exam: PRESENT: alert - and appropriate in simple responses, awake Psychiatric exam: PRESENT: appropriate affect Skin exam: PRESENT: dry, intact, warm. ABSENT: cyanosis, rash Results Laboratory Results: 07/01/17 04:26 07/01/17 04:26 06/30/17 06/30/17 07/01/17 17:00 17:00 04:26 WBC 15.6 H RBC 3.83 L Hgb 12.2 L D Hct 36.0 L MCV 94 MCH 31.9 MCHC 33.8 RDW 13.5 Plt Count 196 Seg Neutrophils % Not Reportable Lymphocytes % Not Reportable Monocytes % Not Reportable Eosinophils % Not Reportable Basophils % Not Reportable Absolute Neutrophils Not Reportable Absolute Lymphocytes Not Reportable Absolute Monocytes Not Reportable Absolute Eosinophils Not Reportable Absolute Basophils Not Reportable Carbonic Acid 1.04 L HCO3/H2CO3 Ratio 25:1 ABG pH 7.50 H ABG pCO2 34.4 L ABG pO2 57.7 L ABG HCO3 26.1 H ABG O2 Saturation 92.4 L ABG Base Excess 3.2 FiO2 ROOM AIR Sodium Potassium Chloride Carbon Dioxide Anion Gap BUN Creatinine Est GFR ( Amer) Est GFR (Non-Af Amer) Glucose Calcium Total Bilirubin AST ALT Alkaline Phosphatase Total Protein Albumin Urine Color DELROY Urine Appearance CLOUDY Urine pH 5.0 Ur Specific [place] 1.028 Urine Protein >=500 H Urine Glucose (UA) >=500 H Urine Ketones TRACE H Urine Blood LARGE H Urine Nitrite NEGATIVE Ur Leukocyte Esterase NEGATIVE Urine WBC (Auto) 55 Urine RBC (Auto) 93 07/01/17 04:26 WBC RBC Hgb Hct MCV MCH MCHC RDW Plt Count Seg Neutrophils % Lymphocytes % Monocytes % Eosinophils % Basophils % Absolute Neutrophils Absolute Lymphocytes Absolute Monocytes Absolute Eosinophils Absolute Basophils Carbonic Acid HCO3/H2CO3 Ratio ABG pH ABG pCO2 ABG pO2 ABG HCO3 ABG O2 Saturation ABG Base Excess FiO2 Sodium 135.3 L Potassium 3.9 Chloride 100 Carbon Dioxide 22 Anion Gap 13 BUN 44 H D Creatinine 1.53 H Est GFR ( Amer) 53 L Est GFR (Non-Af Amer) 44 L Glucose 179 H Calcium 8.0 L Total Bilirubin 0.5 AST 22 ALT 24 Alkaline Phosphatase 52 Total Protein 5.4 L Albumin 2.8 L Urine Color Urine Appearance Urine pH Ur Specific [place] Urine Protein Urine Glucose (UA) Urine Ketones Urine Blood Urine Nitrite Ur Leukocyte Esterase Urine WBC (Auto) Urine RBC (Auto) 06/30/17 06/30/17 13:45 13:45 Creatine Kinase 139 CK-MB (CK-2) 1.27 Troponin I 0.030 NT-Pro-B Natriuret Pep 1290 H Impressions: Head MRI 06/30/17 00:00 IMPRESSION: ACUTE LACUNAR-TYPE INFARCT INVOLVING THE RIGHT PERIVENTRICULAR WHITE MATTER PRESUMABLY ACCOUNTING FOR NEW ONSET LEFT-SIDED WEAKNESS. NO LARGE TERRITORY INFARCTION, HEMORRHAGE, OR MASS LESION. EVIDENCE OF ACUTE STROKE: YES. LENTICULOSTRIATE. Chest X-Ray 06/30/17 08:59 IMPRESSION: Left lower lobe pneumonitis. Head CT 06/30/17 09:01 IMPRESSION: CHRONIC CHANGES OF ATROPHY AND MICROVASCULAR ISCHEMIA. NO ACUTE PROCESS. EVIDENCE OF ACUTE STROKE: NO. 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 (2) Left lower lobe pneumonia Qualifiers: Pneumonia type: due to unspecified organism Qualified Code(s): J18.1 - Lobar pneumonia, unspecified organism Is this a current diagnosis for this admission?: Yes Plan: See covering attending physician orders. (3) Hypertension Qualifiers: Hypertension type: essential hypertension Qualified Code(s): I10 - Essential (primary) hypertension Is this a current diagnosis for this admission?: Yes Plan: See covering attending physician orders. - Time Time Spent with patient: 25-34 minutes Medications reviewed and adjusted accordingly: Yes Anticipated discharge: SNF - Inpatient Certification Based on my medical assessment, after consideration of the patient's comorbidities, presenting symptoms, or acuity I expect that the services needed warrant INPATIENT care.: Yes I certify that my determination is in accordance with my understanding of Medicare's requirements for reasonable and necessary INPATIENT services [42 CFR 412.3e].: Yes Medical Necessity: Need Close Monitoring Due to Risk of Patient Decompensation, Need For IV Fluids, Need For Continuous Telemetry Monitoring, Need for Nebulizer Therapy and Monitoring of Response, Need for IV Antibiotics, Risk of Complication if Not Cared For in Hospital Post Hospital Care: D/C or Transfer Summary - Plan Summary Plan Summary: See covering attending physician orders.
[2017-07-01] MEDS ORDERED: GLUCAGON,HUMAN RECOMB 1 MG INJ SUBCUT PRN (16:58)
[2017-07-01] MEDS ORDERED: DEXTROSE 40% GEL 15 GM TUBE PO PRN ×2 (16:58)
[2017-07-01] MEDS ORDERED: DEXTROSE 50%-WATER 25 GM/50 ML DISP.SYRIN IV PRN ×2 (16:58)
[2017-07-01] MEDS: METOPROLOL SUCCINATE 25 MG TAB.SR.24H PO SCH (18:53)
[2017-07-01] MEDS: CLOPIDOGREL BISULFATE 75 MG TABLET PO SCH (18:54)
[2017-07-01] MEDS: FINASTERIDE 5 MG TABLET PO SCH (18:54)
[2017-07-01] MEDS: NORMAL SALINE 1000 ML 1,000 ML IV PRN (18:54)
[2017-07-01] MEDS: TAMSULOSIN HCL 0.4 MG CAP.SR.24H PO SCH (18:54)
[2017-07-01] MEDS ORDERED: LISINOPRIL 10 MG TABLET PO ONE (19:45)
[2017-07-01] MEDS: ATORVASTATIN CALCIUM 20 MG TABLET PO SCH (21:40)
[2017-07-01] MEDS: PANTOPRAZOLE SODIUM 40 MG VIAL IV SCH (21:41)
[2017-07-02] MEDS: IPRATROPIUM/ALBUTEROL 0.5-2.5 MG/3 ML AMPUL NEB PRN (03:29)
[2017-07-02] MEDS ORDERED: KETOROLAC TROMETHAMINE INJ/PF 30 MG/1 ML SDV IV PRN (04:50)
[2017-07-02 05:26] LABS: ABSOLUTE LYMPHOCYTES (AUTO) 0.8 10^3/uL (0.5-4.7); ABSOLUTE MONOCYTES (AUTO) 0.9 10^3/uL (0.1-1.4); ABSOLUTE NEUT (AUTO) 11.6 10^3/uL (1.7-8.2); BASOPHILS % (AUTO) 0.1 % (0-2); HEMATOCRIT 34.8 % (37.9-51.0); HEMOGLOBIN 12.2 g/dL (13.5-17.0); MEAN CORPUSCULAR HEMOGLOBIN 32.4 pg (27.0-33.4); MEAN CORPUSCULAR HGB CONC 34.9 g/dL (32.0-36.0); MEAN CORPUSCULAR VOLUME 93 fl (80-97); PLATELET COUNT 191 10^3/uL (150-450); RED BLOOD COUNT 3.76 10^6/uL (4.35-5.55); RED CELL DISTRIBUTION WIDTH 13.6 % (11.5-14.0); SEGMENTED NEUTROPHILS % (AUTO) 86.9 % (42-78); TOTAL CELLS COUNTED % (AUTO) 100 %; WHITE BLOOD COUNT 13.3 10^3/uL (4.0-10.5)
[2017-07-02 05:43] LABS: ALANINE AMINOTRANSFERASE 27 U/L (21-72); ALBUMIN 2.7 g/dL (3.5-5.0); ALKALINE PHOSPHATASE 65 U/L (38-126); ANION GAP 10 (5-19); ASPARTATE AMINO TRANSFERASE 22 U/L (17-59); BILIRUBIN,DIRECT 0.4 mg/dL (0.0-0.4); BILIRUBIN,TOTAL 0.7 mg/dL (0.2-1.3); BLOOD UREA NITROGEN 42 mg/dL (7-20); CALCIUM 8.1 mg/dL (8.4-10.2); CARBON DIOXIDE 21 mmol/L (22-30); CHLORIDE 107 mmol/L (98-107); GLUCOSE 156 mg/dL (75-110); POTASSIUM 3.5 mmol/L (3.6-5.0); SODIUM 137.9 mmol/L (137-145); TOTAL PROTEIN 5.4 g/dL (6.3-8.2)
[2017-07-02] MEDS: CEFEPIME HCL 2 GM in NORMAL SALINE 100 ML IV SCH ×2 (11:00→22:25)
[2017-07-02] MEDS: LEVOFLOXACIN 750 MG/D5W RTU 750 MG/150 ML RTUPB IV SCH (11:00)
[2017-07-02] MEDS: DOCUSATE SODIUM 100 MG CAPSULE PO SCH ×2 (11:01→18:05)
[2017-07-02] MEDS: PANTOPRAZOLE SODIUM 40 MG VIAL IV SCH ×2 (11:01→22:24)
[2017-07-02] MEDS: ENOXAPARIN SODIUM INJ 40 MG/0.4 ML DISP.SYRIN SUBCUT SCH (11:01)
[2017-07-02] MEDS: NORMAL SALINE 1000 ML 1,000 ML IV PRN ×2 (11:03→22:25)
[2017-07-02] MEDS ORDERED: ACETAMINOPHEN 325 MG TABLET PO PRN (14:33)
--- NOTE | 2017-07-02 14:40 | PDOC PROGRESS REPORT ---
Subjective Progress Note for:: 07/02/17 Subjective:: No reported fever or chills. Remain NPO except for medication. No reported chest pain r difficulty with breathing. Urine output remain fair. Reason For Visit: ACUTE CVA Physical Exam Vital Signs: Temp Pulse Resp BP Pulse Ox 97.5 F 74 18 137/51 H 95 07/02/17 11:53 07/02/17 12:00 07/02/17 12:00 07/02/17 12:00 07/02/17 12:00 Intake & Output 07/01/17 07/02/17 07/03/17 06:59 06:59 06:59 Intake Total 828 1844 0 Output Total 125 1250 140 Balance 703 594 -140 Weight 76.7 kg 79.7 kg Physical Exam: General appearance: PRESENT: no acute distress Head exam: PRESENT: atraumatic, normocephalic Eye exam: PRESENT: conjunctiva pink, EOMI, PERRLA. ABSENT: scleral icterus Mouth exam: PRESENT: moist - fairly Respiratory exam: PRESENT: crackles - scattered bilaterally, decreased breath sounds - at lung bases Cardiovascular exam: PRESENT: RRR. ABSENT: diastolic murmur, rubs, systolic murmur Vascular exam: PRESENT: normal capillary refill. ABSENT: pallor GI/Abdominal exam: PRESENT: normal bowel sounds, soft. ABSENT: distended, guarding, mass, organomegaly, rebound, tenderness Extremities exam: ABSENT: pedal edema Musculoskeletal exam: PRESENT: deformity - related to multiple joints involvment with arthritis Neurological exam: PRESENT: alert - and appropriate in simple responses, awake Psychiatric exam: PRESENT: appropriate affect Skin exam: PRESENT: dry, intact, warm. ABSENT: cyanosis, rash Results Laboratory Results: 07/02/17 04:18 07/02/17 04:18 07/02/17 07/02/17 04:18 04:18 WBC 13.3 H RBC 3.76 L Hgb 12.2 L Hct 34.8 L MCV 93 MCH 32.4 MCHC 34.9 RDW 13.6 Plt Count 191 Seg Neutrophils % 86.9 H Lymphocytes % 6.0 L Monocytes % 7.0 Eosinophils % 0.0 Basophils % 0.1 Absolute Neutrophils 11.6 H Absolute Lymphocytes 0.8 Absolute Monocytes 0.9 Absolute Eosinophils 0.0 Absolute Basophils 0.0 Sodium 137.9 Potassium 3.5 L Chloride 107 Carbon Dioxide 21 L Anion Gap 10 BUN 42 H Creatinine 1.08 Est GFR ( Amer) > 60 Est GFR (Non-Af Amer) > 60 Glucose 156 H Calcium 8.1 L Total Bilirubin 0.7 AST 22 ALT 27 Alkaline Phosphatase 65 Total Protein 5.4 L Albumin 2.7 L 06/30/17 17:00 Catheterized Urine Urine Culture - Final NO GROWTH 2 DAYS 06/30/17 06/30/17 13:45 13:45 Creatine Kinase 139 CK-MB (CK-2) 1.27 Troponin I 0.030 NT-Pro-B Natriuret Pep 1290 H Impressions: Head MRI 06/30/17 00:00 IMPRESSION: ACUTE LACUNAR-TYPE INFARCT INVOLVING THE RIGHT PERIVENTRICULAR WHITE MATTER PRESUMABLY ACCOUNTING FOR NEW ONSET LEFT-SIDED WEAKNESS. NO LARGE TERRITORY INFARCTION, HEMORRHAGE, OR MASS LESION. EVIDENCE OF ACUTE STROKE: YES. LENTICULOSTRIATE. Chest X-Ray 06/30/17 08:59 IMPRESSION: Left lower lobe pneumonitis. Head CT 06/30/17 09:01 IMPRESSION: CHRONIC CHANGES OF ATROPHY AND MICROVASCULAR ISCHEMIA. NO ACUTE PROCESS. EVIDENCE OF ACUTE STROKE: NO. 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 Is this a current diagnosis for this admission?: Yes (2) Left lower lobe pneumonia Qualifiers: Pneumonia type: due to unspecified organism Qualified Code(s): J18.1 - Lobar pneumonia, unspecified organism Is this a current diagnosis for this admission?: Yes (3) Hypertension Qualifiers: Hypertension type: essential hypertension Qualified Code(s): I10 - Essential (primary) hypertension Is this a current diagnosis for this admission?: Yes - Time Time Spent with patient: 25-34 minutes Medications reviewed and adjusted accordingly: Yes Anticipated discharge: SNF Within: Other - Inpatient Certification Based on my medical assessment, after consideration of the patient's comorbidities, presenting symptoms, or acuity I expect that the services needed warrant INPATIENT care.: Yes I certify that my determination is in accordance with my understanding of Medicare's requirements for reasonable and necessary INPATIENT services [42 CFR 412.3e].: Yes Medical Necessity: Need Close Monitoring Due to Risk of Patient Decompensation, Need For IV Fluids, Need For Continuous Telemetry Monitoring, Need for IV Antibiotics, Risk of Diagnosis Which Will Require Inpatient Eval/Care/Monitoring Post Hospital Care: D/C or Transfer Summary - Plan Summary Plan Summary: See covering attending physician orders.
[2017-07-02] MEDS: POTASSI CL 20 MEQ/50 ML RIDER 20 MEQ/50 ML RTUPB IV SCH ×2 (16:25→18:06)
[2017-07-02] MEDS: METOPROLOL SUCCINATE 25 MG TAB.SR.24H PO SCH (18:05)
[2017-07-02] MEDS: LISINOPRIL 10 MG TABLET PO SCH (18:05)
[2017-07-02] MEDS: FINASTERIDE 5 MG TABLET PO SCH (18:05)
[2017-07-02] MEDS: CLOPIDOGREL BISULFATE 75 MG TABLET PO SCH (18:05)
[2017-07-02] MEDS: TAMSULOSIN HCL 0.4 MG CAP.SR.24H PO SCH (18:05)
[2017-07-02] MEDS: ATORVASTATIN CALCIUM 20 MG TABLET PO SCH (22:22)
[2017-07-03 05:14] LABS: ABSOLUTE LYMPHOCYTES (AUTO) 0.9 10^3/uL (0.5-4.7); ABSOLUTE MONOCYTES (AUTO) 0.9 10^3/uL (0.1-1.4); ABSOLUTE NEUT (AUTO) 8.5 10^3/uL (1.7-8.2); BASOPHILS % (AUTO) 0.3 % (0-2); EOSINOPHILS % (AUTO) 0.1 % (0-6); HEMOGLOBIN 11.6 g/dL (13.5-17.0); LYMPHOCYTES % (AUTO) 8.7 % (13-45); MEAN CORPUSCULAR HEMOGLOBIN 32.3 pg (27.0-33.4); MEAN CORPUSCULAR HGB CONC 34.1 g/dL (32.0-36.0); MEAN CORPUSCULAR VOLUME 95 fl (80-97); MONOCYTES % (AUTO) 8.5 % (3-13); PLATELET COUNT 192 10^3/uL (150-450); RED BLOOD COUNT 3.59 10^6/uL (4.35-5.55); RED CELL DISTRIBUTION WIDTH 13.4 % (11.5-14.0); SEGMENTED NEUTROPHILS % (AUTO) 82.4 % (42-78); TOTAL CELLS COUNTED % (AUTO) 100 %; WHITE BLOOD COUNT 10.3 10^3/uL (4.0-10.5)
[2017-07-03 05:42] LABS: ALANINE AMINOTRANSFERASE 31 U/L (21-72); ALBUMIN 2.5 g/dL (3.5-5.0); ALKALINE PHOSPHATASE 56 U/L (38-126); ANION GAP 10 (5-19); ASPARTATE AMINO TRANSFERASE 24 U/L (17-59); BILIRUBIN,DIRECT 0.5 mg/dL (0.0-0.4); BILIRUBIN,TOTAL 0.8 mg/dL (0.2-1.3); BLOOD UREA NITROGEN 38 mg/dL (7-20); CARBON DIOXIDE 24 mmol/L (22-30); CHLORIDE 110 mmol/L (98-107); GLUCOSE 130 mg/dL (75-110); SODIUM 143.6 mmol/L (137-145); TOTAL PROTEIN 5.1 g/dL (6.3-8.2)
[2017-07-03] MEDS: LEVOFLOXACIN 750 MG/D5W RTU 750 MG/150 ML RTUPB IV SCH (10:09)
[2017-07-03] MEDS: PANTOPRAZOLE SODIUM 40 MG VIAL IV SCH ×2 (10:10→21:40)
[2017-07-03] MEDS: CEFEPIME HCL 2 GM in NORMAL SALINE 100 ML IV SCH (10:10)
[2017-07-03] MEDS: DOCUSATE SODIUM 100 MG CAPSULE PO SCH ×2 (10:10→18:56)
[2017-07-03] MEDS: ENOXAPARIN SODIUM INJ 40 MG/0.4 ML DISP.SYRIN SUBCUT SCH (10:10)
[2017-07-03] MEDS: IPRATROPIUM/ALBUTEROL 0.5-2.5 MG/3 ML AMPUL NEB PRN (11:25)
[2017-07-03] MEDS: NORMAL SALINE 1000 ML 1,000 ML IV PRN (12:46)
--- NOTE | 2017-07-03 14:02 | RADIOLOGY REPORT (SQ) ---
EXAM DESCRIPTION: CAROTID DOPPLER COMPLETED DATE/TIME: 07/03/2017 1:48 pm REASON FOR STUDY: cva COMPARISON: None. TECHNIQUE: Grayscale ultrasound, Doppler velocity and spectra, and color Doppler images acquired of the extra-cranial carotid and vertebral arteries. Images stored on PACS. LIMITATIONS: Patient motion and patient body habitus limits detail. FINDINGS: RIGHT CAROTID CCA Velocities: Within normal limits. ICA Velocities Peak systolic 1.05 m/s. End diastolic 0.19 m/s. Proximal ICA/CCA peak systolic ratio 1.8. Mild atherosclerotic change. Any narrowing less than 50% LEFT CAROTID CCA Velocities: Within normal limits. ICA Velocities Peak systolic 1.48 m/s. End diastolic 0.22 m/s. Proximal ICA/CCA peak systolic ratio 1.8. Some atherosclerotic change. Stenosis 50 69% range by systolic velocity measurement. VERTEBRAL ARTERIES: Antegrade flow. Normal waveforms. SUBCLAVIAN ARTERIES: No finding. OTHER: No other significant finding. IMPRESSION: 50 to 69% stenosis left ICA. COMMENT: Quality ID #[id number]: Velocity criteria are extrapolated from the diameter data as defined by t he Society of Radiologists in Ultrasound Consensus Conference. Radiology 2003: 229; 340-346. TECHNICAL DOCUMENTATION: JOB ID: [id number] [employer]- All Rights Reserved
--- NOTE | 2017-07-03 16:03 | ST Inp Modified Barium Swallow ---
Medical Diagnosis - Medical Diagnoses Medical Diagnosis Description & ICD-10 Code(s): CVA, dysphagia ST Inpatient [facility] [place] - General Date: 07/03/17 - History History Obtained From: Other - EMR -: Medical - Per EMR: hypertension, dementia, CAD Patient admitted on 06/30/17 with left lower lobe pneumonia. While in the ED, patient began exhibiting signs of CVA (left sided weakness). Speech pathology evaluated patient at bedside, patient exhibited coughing on ice chip, was made NPO except for medications with nectar liquids. Medications: Medications Reviewed Allergies: No known allergies - Subjective Current Nutritional Means: NPO Current PO Diet: Thickened liquids - for meds only, N/A (NPO) Current Symptoms: Coughing, Pneumonia Pain: Patient reports, 0/5 - Objective Assessment: Upright, Left Lateral - Food Trials Food Trials Used: Honey-thickened liquids, [place] thick liquids, Pureed The Patient: fed by ST, via cup, via spoon - Assessment Labial Function: Impaired - reduced seal Lingual Function: Impaired Dentition: Partial - poor dentition Laryngeal Function: Volitional Swallow - weak, delayed - Pharyngeal Stage Initiation of Pharyngeal Stage: Delayed Reflex Delay Time (seconds): 10 - required verbal cue Decreased Laryngeal Elevation: Yes Reduced Velo-Pharyngeal Closure: no Reduced Pressure Generation: Yes Reduced Tongue Base Retraction: Yes Pre-Swallowing Pooling in Valleculae: Significant - on all textures, especially with puree Pre-Swallowing Pooling in Pyriforms: None Reduced Thyro-Hyiod Approximation: Yes Reduced Epiglottic Excursion: No Reduced Pharyngeal Peristalsis: Yes Multiple Swallows With: Ineffective Clearance Post Swallow Residuals in Valleculae: Moderate Post Swallow Residuals in Pyriforms: Moderate Post Swallow Residuals: throughout pharynx Pahryngeal Stage Comments: Significantly delayed swallow reflex seen. Required verbal cue to initiate swallow with solid texture and with honey thick liquid texture. Significant residue seen throughout pharynx, did not clear with second swallow. - Impression/Summary Laryngeal Penetration: No Tracheal Aspiration: no Ineffective Compensatory Strategies: throat clear & reswallow, hard swallow Patient Presents With: Oral stage dysphagia, Pharyngeal stage dysph., Severe Risk of Aspiration: Moderate Risk of Nutritional Compromise: Severe Risk Due To: Reduced ability to consume foods functionally. - Recommendations NPO: yes Solid Diet Recommendations: Pureed - for pleasure feeds Liquid Diet Recommendations: [place]-Thick - for pleasure feeds Strict Aspitarion Precautions: Yes Recommended Techniques: Fully Upright During Meal, Small Bites and Sips - requires verbal cue Supervision: Constant, requires assistance Other Recommendations: Recommend alternative means of nutrition hydration as the patient did not exhibit the ability to adequately meet needs PO. No aspiration seen, however, patient at very high risk as swallow reflex was largely absent without verbal cue and severe residue seen throughout pharynx that did not clear with subsequent swallows. Recommendations discussed with physician. - Time Total Time: 20 Total Timed Minutes: 20
[2017-07-03] MEDS: METOPROLOL SUCCINATE 25 MG TAB.SR.24H PO SCH (18:56)
[2017-07-03] MEDS: LISINOPRIL 10 MG TABLET PO SCH (18:56)
[2017-07-03] MEDS: FINASTERIDE 5 MG TABLET PO SCH (18:56)
[2017-07-03] MEDS: CLOPIDOGREL BISULFATE 75 MG TABLET PO SCH (18:57)
[2017-07-03] MEDS: TAMSULOSIN HCL 0.4 MG CAP.SR.24H PO SCH (18:57)
[2017-07-03] MEDS ORDERED: FUROSEMIDE INJ/PF 40 MG/4 ML SDV IV ONE (19:30)
--- NOTE | 2017-07-03 20:04 | RADIOLOGY REPORT (SQ) ---
EXAM DESCRIPTION: SEVERO SWALLOW COMPLETED DATE/TIME: 07/03/2017 9:02 am REASON FOR STUDY: Acute stroke with dysphagia COMPARISON: None. TECHNIQUE: Videofluoroscopic swallowing examination was performed in conjunction with speech patholo gy. Videofluoroscopic imaging was obtained and reviewed and these are the findings: RADIATION DOSE: Fluoro time 3.5 minutes 1 images saved to PACS. LIMITATIONS: None FINDINGS: The patient was brought into the fluoro room and placed upright on a modified barium swall ow chair. The patient was then given multiple consistencies mixed with barium to swallow under live fluoroscopic video guidance. According to the Speech Pathologist there was no penetration or aspirat ion. Note is made of significant residuals seen in the vallecula and Piriforms. Please refer to the speech pathology report for further details. IMPRESSION: NO EVIDENCE OF PENETRATION OR ASPIRATIONPLEASE SEE SPEECH PATHOLOGIST REPORT FOR OTHER F INDINGS AND RECOMMENDATIONS. COMMENT: None Quality ID [id number]: Final reports for procedures using fluoroscopy that document radiation exposure renetta rox, or exposure time and number of fluorographic images (if radiation exposure indices are not avail able) TECHNICAL DOCUMENTATION: JOB ID: [id number] [employer]- All Rights Reserved
--- NOTE | 2017-07-03 20:20 | PDOC PROGRESS REPORT ---
Subjective Progress Note for:: 07/03/17 Subjective:: Patient was seen by the bedside, he was evaluated by speech, patient pocket food in his mouth increasing risk of aspiration, PEG tube recommended temporarily. He was admitted for CVA and pneumonia, patient speech is slurrhed. Patient had expressed his wishes to be a DNR in the past, this will be ordered in chart Reason For Visit: ACUTE CVA Physical Exam Vital Signs: Temp Pulse Resp BP Pulse Ox 98.4 F 73 18 157/53 H 100 07/03/17 17:31 07/03/17 17:31 07/03/17 12:16 07/03/17 17:31 07/03/17 17:31 Intake & Output 07/02/17 07/03/17 07/04/17 06:59 06:59 06:59 Intake Total 1844 2420 1375 Output Total 1250 1115 700 Balance 594 1305 675 Weight 79.7 kg 80.4 kg General appearance: PRESENT: no acute distress Respiratory exam: PRESENT: clear to auscultation luis miguel Cardiovascular exam: PRESENT: +S1, +S2 GI/Abdominal exam: PRESENT: soft Neurological exam: PRESENT: alert Results Laboratory Results: 07/03/17 03:35 07/03/17 03:35 07/03/17 07/03/17 03:35 03:35 WBC 10.3 RBC 3.59 L Hgb 11.6 L Hct 34.0 L MCV 95 MCH 32.3 MCHC 34.1 RDW 13.4 Plt Count 192 Seg Neutrophils % 82.4 H Lymphocytes % 8.7 L Monocytes % 8.5 Eosinophils % 0.1 Basophils % 0.3 Absolute Neutrophils 8.5 H Absolute Lymphocytes 0.9 Absolute Monocytes 0.9 Absolute Eosinophils 0.0 Absolute Basophils 0.0 Sodium 143.6 Potassium 4.0 Chloride 110 H Carbon Dioxide 24 Anion Gap 10 BUN 38 H Creatinine 1.03 Est GFR ( Amer) > 60 Est GFR (Non-Af Amer) > 60 Glucose 130 H Calcium 8.0 L Total Bilirubin 0.8 AST 24 ALT 31 Alkaline Phosphatase 56 Total Protein 5.1 L Albumin 2.5 L 06/30/17 06/30/17 13:45 13:45 Creatine Kinase 139 CK-MB (CK-2) 1.27 Troponin I 0.030 NT-Pro-B Natriuret Pep 1290 H Impressions: Head MRI 06/30/17 00:00 IMPRESSION: ACUTE LACUNAR-TYPE INFARCT INVOLVING THE RIGHT PERIVENTRICULAR WHITE MATTER PRESUMABLY ACCOUNTING FOR NEW ONSET LEFT-SIDED WEAKNESS. NO LARGE TERRITORY INFARCTION, HEMORRHAGE, OR MASS LESION. EVIDENCE OF ACUTE STROKE: YES. LENTICULOSTRIATE. Chest X-Ray 06/30/17 08:59 IMPRESSION: Left lower lobe pneumonitis. Head CT 06/30/17 09:01 IMPRESSION: CHRONIC CHANGES OF ATROPHY AND MICROVASCULAR ISCHEMIA. NO ACUTE PROCESS. EVIDENCE OF ACUTE STROKE: NO. Carotid Doppler Study 07/03/17 00:00 IMPRESSION: 50 to 69% stenosis left ICA. Modified Barium Swallow 07/03/17 08:00 IMPRESSION: NO EVIDENCE OF PENETRATION OR ASPIRATIONPLEASE SEE SPEECH PATHOLOGIST REPORT FOR OTHER FINDINGS AND RECOMMENDATIONS. 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 Is this a current diagnosis for this admission?: Yes (3) Left lower lobe pneumonia Qualifiers: Pneumonia type: due to unspecified organism Qualified Code(s): J18.1 - Lobar pneumonia, unspecified organism Is this a current diagnosis for this admission?: Yes (4) Dementia Qualifiers: Dementia type: Alzheimer's disease Alzheimer's disease onset: unspecified onset Dementia behavioral disturbance: without behavioral disturbance Qualified Code(s): G30.9 - Alzheimer's disease, unspecified; F02.80 - Dementia in other diseases classified elsewhere without behavioral disturbance; F02.80 - Dementia in other diseases classified elsewhere without behavioral disturbance; F02.80 - Dementia in other diseases classified elsewhere without behavioral disturbance Is this a current diagnosis for this admission?: Yes (5) Acute left arterial ischemic stroke, ICA (internal carotid artery) Is this a current diagnosis for this admission?: Yes (6) Embolic cerebral infarction Qualifiers: Precerebral and cerebral artery: carotid artery Laterality of affected vessel: left Qualified Code(s): I63.132 - Cerebral infarction due to embolism of left carotid artery Is this a current diagnosis for this admission?: Yes - Plan Summary Plan Summary: Consultation requested from surgery for PEG tube placement, patient made DNR status
--- NOTE | 2017-07-03 20:23 | PDOC CONSULTATION ---
Consultation Consult reason:: Feeding tube History of Present Illness Admission Date/PCP: 06/30/17 13:07 JENNIFER TYSON MD History of Present Illness: ALYSE ÁLVAREZ is a 82 year old male He has a history of hypertension, dementia, coronary artery disease, he came to the emergency room earlier today for evaluation of generalized body weakness, patient stated according to the medical record emergency room that "he feels like he is on his last leg". He was last seen in the emergency room yesterday for evaluation of flulike symptoms. He was evaluated he was found to have leukocytosis with white blood cell count 15.82 thousand. The chest x-ray showed left lower lobe pneumonia because patient was confused CT head was done in the emergency room showed chronic changes of atrophy there is no acute change. I received a call from the from the emergency room physician that patient needed to be admitted to the hospital. While he was in the emergency room with you for a bed on the medical floor the nursing staff noticed that patient left side was weak and he was slurred speech, a stat MRI of the head was done, it showed acute lacunar type infarct involving the right periventricular white matter there is no large territory infarction no hemorrhage or mass lesion. There was a concern initially that it could be hemorrhage patient was not considered to be a candidate for TPA because of the concern for hemorrhage The patient was hospitalized for acute stroke, left hemiparesis, dysphasia. Patient was evaluated by speech therapy, and found to be at risk for aspiration. He displayed dysfunctional swallowing by cookie swallow, and required oral cues repeatedly to facilitate swallowing. Surgery was consulted for evaluation of feeding tube. Apparently the patient cares for his invalid family members. Past Medical History Cardiac Medical History: Reports: Coronary Artery Disease, Hyperlipidema, Hypertension Pulmonary Medical History: Reports: Chronic Obstructive Pulmonary Disease (COPD) , Pneumonia Psychiatric Medical History: Reports: Dementia, Depression Past Surgical History Past Surgical History: Reports: Orthopedic Surgery - patellar fracture Social History Smoking Status: Current Every Day Smoker Last Time Smoked: 06/27/17 Frequency of Alcohol Use: None Hx Recreational Drug Use: No Drugs: None Hx Prescription Drug Abuse: No - Advance Directive Resuscitation Status: Full Code Family History Family History: Reviewed & Not Pertinent, COPD, Hypertension Parental Family History Reviewed: No Children Family History Reviewed: NA Sibling(s) Family History Reviewed.: NA Medication/Allergy Home Medications: Aspirin [Adult Low Dose Aspirin EC] 81 mg PO DAILY 06/30/17 Atorvastatin Calcium [Lipitor 20 mg Tablet] 20 mg PO QHS 06/30/17 Clopidogrel Bisulfate [Plavix 75 mg Tablet] 75 mg PO DAILY 06/30/17 Docusate Sodium [Colace 100 mg Capsule] 100 mg PO BID 06/30/17 Finasteride [Proscar 5 mg Tablet] 5 mg PO DAILY 06/30/17 Lisinopril [Prinivil 10 mg Tablet] 20 mg PO DAILY 06/30/17 Memantine HCl/Donepezil HCl [Namzaric 28 mg-10 mg Capsule] 1 cap PO QPM Metoprolol Succinate [Toprol Xl] 25 mg PO DAILY 06/30/17 Tamsulosin HCl [Flomax 0.4 mg Cap.sr] 0.4 mg PO DAILY 06/30/17 Allergies/Adverse Reactions: No Known Allergies Allergy (Verified 09/18/16 01:51) Review of Systems Constitutional: PRESENT: as per HPI Physical Exam Vital Signs: Temp Pulse Resp BP Pulse Ox 98.4 F 73 18 157/53 H 100 07/03/17 17:31 07/03/17 17:31 07/03/17 12:16 07/03/17 17:31 07/03/17 17:31 Intake & Output 07/02/17 07/03/17 07/04/17 06:59 06:59 06:59 Intake Total 1844 2420 1375 Output Total 1250 1115 700 Balance 594 1305 675 Weight 79.7 kg 80.4 kg General appearance: PRESENT: no acute distress Eye exam: PRESENT: other - Slight disconjugate gaze Respiratory exam: PRESENT: unlabored Cardiovascular exam: PRESENT: RRR GI/Abdominal exam: PRESENT: other - No distention no peritoneal signs no rigidity Rectal exam: PRESENT: deferred Musculoskeletal exam: PRESENT: other - Unable to raise left arm and move left leg much Neurological exam: PRESENT: alert, altered, awake, oriented to person, oriented to place, oriented to situation, other - Patient has dysarthria but communicates reasonably well. He is awake alert and oriented 3. He understands he has had a stroke and would like a feeding tube if it will help him get better. Results Laboratory Results: 07/03/17 03:35 07/03/17 03:35 07/03/17 07/03/17 03:35 03:35 WBC 10.3 RBC 3.59 L Hgb 11.6 L Hct 34.0 L MCV 95 MCH 32.3 MCHC 34.1 RDW 13.4 Plt Count 192 Seg Neutrophils % 82.4 H Lymphocytes % 8.7 L Monocytes % 8.5 Eosinophils % 0.1 Basophils % 0.3 Absolute Neutrophils 8.5 H Absolute Lymphocytes 0.9 Absolute Monocytes 0.9 Absolute Eosinophils 0.0 Absolute Basophils 0.0 Sodium 143.6 Potassium 4.0 Chloride 110 H Carbon Dioxide 24 Anion Gap 10 BUN 38 H Creatinine 1.03 Est GFR ( Amer) > 60 Est GFR (Non-Af Amer) > 60 Glucose 130 H Calcium 8.0 L Total Bilirubin 0.8 AST 24 ALT 31 Alkaline Phosphatase 56 Total Protein 5.1 L Albumin 2.5 L 06/30/17 06/30/17 13:45 13:45 Creatine Kinase 139 CK-MB (CK-2) 1.27 Troponin I 0.030 NT-Pro-B Natriuret Pep 1290 H Impressions: Head MRI 06/30/17 00:00 IMPRESSION: ACUTE LACUNAR-TYPE INFARCT INVOLVING THE RIGHT PERIVENTRICULAR WHITE MATTER PRESUMABLY ACCOUNTING FOR NEW ONSET LEFT-SIDED WEAKNESS. NO LARGE TERRITORY INFARCTION, HEMORRHAGE, OR MASS LESION. EVIDENCE OF ACUTE STROKE: YES. LENTICULOSTRIATE. Chest X-Ray 06/30/17 08:59 IMPRESSION: Left lower lobe pneumonitis. Head CT 06/30/17 09:01 IMPRESSION: CHRONIC CHANGES OF ATROPHY AND MICROVASCULAR ISCHEMIA. NO ACUTE PROCESS. EVIDENCE OF ACUTE STROKE: NO. Carotid Doppler Study 07/03/17 00:00 IMPRESSION: 50 to 69% stenosis left ICA. Modified Barium Swallow 07/03/17 08:00 IMPRESSION: NO EVIDENCE OF PENETRATION OR ASPIRATIONPLEASE SEE SPEECH PATHOLOGIST REPORT FOR OTHER FINDINGS AND RECOMMENDATIONS. Assessment & Plan - Time Disposition: I am having to modify the impression and recommendations Acute CVA right lenticulostriate area with left hemiparesis and dysphasia Recommendations: In light of patient's neurologic deficit, and abnormal barium swallow, supplemental additional conduit recommended. 1. Despite patient's history of cognitive deficiencies and acute stroke, he is reasonably alert, communicates his personal history well and I believe understands the option of a feeding tube as presented to him today. 2. Therefore we will set him up for a PEG tube placement tomorrow, endoscopy suite versus main OR, conscious sedation, 45 minutes; Dr. Lorenzo, surgical list , will perform the service. Additional input from family members may be required.
[2017-07-03] MEDS: ATORVASTATIN CALCIUM 20 MG TABLET PO SCH (21:38)
[2017-07-04] MEDS: CEFEPIME HCL 2 GM in NORMAL SALINE 100 ML IV SCH ×2 (00:15→12:17)
[2017-07-04] MEDS: NORMAL SALINE 1000 ML 1,000 ML IV PRN (06:04)
[2017-07-04] MEDS: IPRATROPIUM/ALBUTEROL 0.5-2.5 MG/3 ML AMPUL NEB PRN (10:07)
[2017-07-04] MEDS: ENOXAPARIN SODIUM INJ 40 MG/0.4 ML DISP.SYRIN SUBCUT SCH (10:35)
[2017-07-04] MEDS: DOCUSATE SODIUM 100 MG CAPSULE PO SCH ×2 (10:35→17:32)
[2017-07-04] MEDS: PANTOPRAZOLE SODIUM 40 MG VIAL IV SCH (10:42)
[2017-07-04] MEDS: LEVOFLOXACIN 750 MG/D5W RTU 750 MG/150 ML RTUPB IV SCH (10:42)
--- NOTE | 2017-07-04 15:18 | PDOC PROGRESS REPORT ---
Subjective Progress Note for:: 07/04/17 Reason For Visit: ACUTE CVA need of PEG Physical Exam Vital Signs: Temp Pulse Resp BP Pulse Ox 98.0 F 93 18 165/68 H 95 07/04/17 11:19 07/04/17 11:19 07/04/17 11:19 07/04/17 11:19 07/04/17 11:19 Intake & Output 07/03/17 07/04/17 07/05/17 06:59 06:59 06:59 Intake Total 2420 3059 0 Output Total 1115 3350 400 Balance 1305 -291 -400 Weight 80.4 kg 78.2 kg GI/Abdominal exam: PRESENT: soft Results Laboratory Results: 07/03/17 03:35 07/03/17 03:35 06/30/17 06/30/17 13:45 13:45 Creatine Kinase 139 CK-MB (CK-2) 1.27 Troponin I 0.030 NT-Pro-B Natriuret Pep 1290 H Impressions: Head MRI 06/30/17 00:00 IMPRESSION: ACUTE LACUNAR-TYPE INFARCT INVOLVING THE RIGHT PERIVENTRICULAR WHITE MATTER PRESUMABLY ACCOUNTING FOR NEW ONSET LEFT-SIDED WEAKNESS. NO LARGE TERRITORY INFARCTION, HEMORRHAGE, OR MASS LESION. EVIDENCE OF ACUTE STROKE: YES. LENTICULOSTRIATE. Chest X-Ray 06/30/17 08:59 IMPRESSION: Left lower lobe pneumonitis. Head CT 06/30/17 09:01 IMPRESSION: CHRONIC CHANGES OF ATROPHY AND MICROVASCULAR ISCHEMIA. NO ACUTE PROCESS. EVIDENCE OF ACUTE STROKE: NO. Carotid Doppler Study 07/03/17 00:00 IMPRESSION: 50 to 69% stenosis left ICA. Modified Barium Swallow 07/03/17 08:00 IMPRESSION: NO EVIDENCE OF PENETRATION OR ASPIRATIONPLEASE SEE SPEECH PATHOLOGIST REPORT FOR OTHER FINDINGS AND RECOMMENDATIONS. Assessment & Plan - Plan Summary Plan Summary: A/ stroke aspiration Angel for PEG P? Plan PEG placement tomorrow PM
[2017-07-04] MEDS ORDERED: ENOXAPARIN SODIUM INJ 40 MG/0.4 ML DISP.SYRIN SUBCUT ONE (16:00)
[2017-07-04] MEDS: FINASTERIDE 5 MG TABLET PO SCH (17:32)
[2017-07-04] MEDS: TAMSULOSIN HCL 0.4 MG CAP.SR.24H PO SCH (17:32)
[2017-07-04] MEDS: METOPROLOL SUCCINATE 25 MG TAB.SR.24H PO SCH (17:33)
[2017-07-04] MEDS: CLOPIDOGREL BISULFATE 75 MG TABLET PO SCH (17:33)
[2017-07-04] MEDS: LISINOPRIL 10 MG TABLET PO SCH (17:33)
[2017-07-04] MEDS: ATORVASTATIN CALCIUM 20 MG TABLET PO SCH (20:53)
--- NOTE | 2017-07-04 22:08 | PDOC PROGRESS REPORT ---
Subjective Progress Note for:: 07/04/17 Subjective:: Patient is scheduled for PEG tube placement, he has CVA with dysphagia Reason For Visit: ACUTE CVA Physical Exam Vital Signs: Temp Pulse Resp BP Pulse Ox 98.1 F 94 20 182/91 H 95 07/04/17 15:04 07/04/17 15:04 07/04/17 15:04 07/04/17 15:04 07/04/17 15:04 Intake & Output 07/03/17 07/04/17 07/05/17 06:59 06:59 06:59 Intake Total 2420 3059 731 Output Total 1115 3350 850 Balance 1305 -291 -119 Weight 80.4 kg 78.2 kg General appearance: PRESENT: no acute distress Eye exam: PRESENT: PERRLA Cardiovascular exam: PRESENT: +S1, +S2 GI/Abdominal exam: PRESENT: soft Neurological exam: PRESENT: alert Results Laboratory Results: 07/03/17 03:35 07/03/17 03:35 06/30/17 06/30/17 13:45 13:45 Creatine Kinase 139 CK-MB (CK-2) 1.27 Troponin I 0.030 NT-Pro-B Natriuret Pep 1290 H Impressions: Head MRI 06/30/17 00:00 IMPRESSION: ACUTE LACUNAR-TYPE INFARCT INVOLVING THE RIGHT PERIVENTRICULAR WHITE MATTER PRESUMABLY ACCOUNTING FOR NEW ONSET LEFT-SIDED WEAKNESS. NO LARGE TERRITORY INFARCTION, HEMORRHAGE, OR MASS LESION. EVIDENCE OF ACUTE STROKE: YES. LENTICULOSTRIATE. Chest X-Ray 06/30/17 08:59 IMPRESSION: Left lower lobe pneumonitis. Head CT 06/30/17 09:01 IMPRESSION: CHRONIC CHANGES OF ATROPHY AND MICROVASCULAR ISCHEMIA. NO ACUTE PROCESS. EVIDENCE OF ACUTE STROKE: NO. Carotid Doppler Study 07/03/17 00:00 IMPRESSION: 50 to 69% stenosis left ICA. Modified Barium Swallow 07/03/17 08:00 IMPRESSION: NO EVIDENCE OF PENETRATION OR ASPIRATIONPLEASE SEE SPEECH PATHOLOGIST REPORT FOR OTHER FINDINGS AND RECOMMENDATIONS. 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 Is this a current diagnosis for this admission?: Yes (3) Left lower lobe pneumonia Qualifiers: Pneumonia type: due to unspecified organism Qualified Code(s): J18.1 - Lobar pneumonia, unspecified organism Is this a current diagnosis for this admission?: Yes (4) Dementia Qualifiers: Dementia type: Alzheimer's disease Alzheimer's disease onset: unspecified onset Dementia behavioral disturbance: without behavioral disturbance Qualified Code(s): G30.9 - Alzheimer's disease, unspecified; F02.80 - Dementia in other diseases classified elsewhere without behavioral disturbance; F02.80 - Dementia in other diseases classified elsewhere without behavioral disturbance; F02.80 - Dementia in other diseases classified elsewhere without behavioral disturbance Is this a current diagnosis for this admission?: Yes (5) Acute left arterial ischemic stroke, ICA (internal carotid artery) Is this a current diagnosis for this admission?: Yes (6) Embolic cerebral infarction Qualifiers: Precerebral and cerebral artery: carotid artery Laterality of affected vessel: left Qualified Code(s): I63.132 - Cerebral infarction due to embolism of left carotid artery Is this a current diagnosis for this admission?: Yes
[2017-07-05] MEDS: CEFEPIME HCL 2 GM in NORMAL SALINE 100 ML IV SCH ×3 (00:44→22:40)
[2017-07-05] MEDS: NORMAL SALINE 1000 ML 1,000 ML IV PRN ×2 (04:53→18:04)
--- NOTE | 2017-07-05 09:50 | PDOC PROGRESS REPORT ---
Subjective Progress Note for:: 07/05/17 Subjective:: patient comfortable Reason For Visit: ACUTE CVA Physical Exam Vital Signs: Temp Pulse Resp BP Pulse Ox 97.5 F 90 16 189/83 H 97 07/05/17 03:41 07/05/17 07:00 07/05/17 03:41 07/05/17 03:41 07/05/17 03:41 Intake & Output 07/04/17 07/05/17 07/06/17 06:59 06:59 06:59 Intake Total 3059 1274 Output Total 3350 1600 Balance -291 -326 Weight 78.2 kg 76.2 kg GI/Abdominal exam: PRESENT: soft Results Laboratory Results: 07/03/17 03:35 07/03/17 03:35 06/30/17 06/30/17 13:45 13:45 Creatine Kinase 139 CK-MB (CK-2) 1.27 Troponin I 0.030 NT-Pro-B Natriuret Pep 1290 H Impressions: Head MRI 06/30/17 00:00 IMPRESSION: ACUTE LACUNAR-TYPE INFARCT INVOLVING THE RIGHT PERIVENTRICULAR WHITE MATTER PRESUMABLY ACCOUNTING FOR NEW ONSET LEFT-SIDED WEAKNESS. NO LARGE TERRITORY INFARCTION, HEMORRHAGE, OR MASS LESION. EVIDENCE OF ACUTE STROKE: YES. LENTICULOSTRIATE. Chest X-Ray 06/30/17 08:59 IMPRESSION: Left lower lobe pneumonitis. Head CT 06/30/17 09:01 IMPRESSION: CHRONIC CHANGES OF ATROPHY AND MICROVASCULAR ISCHEMIA. NO ACUTE PROCESS. EVIDENCE OF ACUTE STROKE: NO. Carotid Doppler Study 07/03/17 00:00 IMPRESSION: 50 to 69% stenosis left ICA. Modified Barium Swallow 07/03/17 08:00 IMPRESSION: NO EVIDENCE OF PENETRATION OR ASPIRATIONPLEASE SEE SPEECH PATHOLOGIST REPORT FOR OTHER FINDINGS AND RECOMMENDATIONS. Assessment & Plan - Plan Summary Plan Summary: A/ S/p CVA Aspiration P/ PEG placement today
[2017-07-05] MEDS: LEVOFLOXACIN 750 MG/D5W RTU 750 MG/150 ML RTUPB IV SCH (10:36)
[2017-07-05] MEDS: ENOXAPARIN SODIUM INJ 40 MG/0.4 ML DISP.SYRIN SUBCUT SCH (10:37)
[2017-07-05] MEDS: DOCUSATE SODIUM 100 MG CAPSULE PO SCH ×2 (10:37→18:00)
[2017-07-05] MEDS: IPRATROPIUM/ALBUTEROL 0.5-2.5 MG/3 ML AMPUL NEB PRN (11:05)
[2017-07-05] MEDS ORDERED: PROPOFOL INJ 200 MG/20 ML VIAL IV ONE (11:51)
[2017-07-05] MEDS ORDERED: MIDAZOLAM 2 MG/2 ML INJ ONE (11:51)
[2017-07-05] MEDS ORDERED: KETAMINE HCL INJ 500 MG/10 ML VIAL ONE (11:51)
[2017-07-05] MEDS ORDERED: FENTANYL CITRATE INJ/PF 100 MCG/2 ML AMPUL ONE (11:51)
[2017-07-05] MEDS ORDERED: LIDOCAINE 1% INJ-PF (10 MG/ML) 30 ML SDV ONE (12:45)
[2017-07-05] MEDS ORDERED: EPHEDRINE SULFATE INJ 50 MG/1 ML AMPULE ONE (13:06)
--- NOTE | 2017-07-05 13:13 | Operative Report ---
Operative Report DATE OF SURGERY: 07/05/17 PREOPERATIVE DIAGNOSIS: aspiration, malnutrition POSTOPERATIVE DIAGNOSIS: same OPERATION: attempted PEG placement SURGEON: DAVE GAONA ANESTHESIA: LMAC - plus local TISSUE REMOVED OR ALTERED: none COMPLICATIONS: none ESTIMATED BLOOD LOSS: < 5 mL INTRAOPERATIVE FINDINGS: unable to insert trocar into stomach despite multiple attempts PROCEDURE: see dictation
--- NOTE | 2017-07-05 14:08 | OPERATIVE REPORT E ---
Operative Report NAME: ALYSE ÁLVAREZ : 1935 AGE: 82Y DATE OF SURGERY: 07/05/2017 ROOM: 301 PREOPERATIVE DIAGNOSIS: Malnutrition, aspiration. POSTOPERATIVE DIAGNOSIS: Malnutrition, aspiration. PROCEDURE: Attempt at PEG tube placement. SURGEON: DAVE GAONA M.D. MANAGER FOOD BEVERAGE: None. COMPLICATIONS: None. ANESTHESIA: MAC plus local. BLOOD LOSS: Less than 5 mL. INDICATION AND FINDINGS: This is an 82-year-old male who has a history of dysphagia secondary to stroke with malnutrition, positive aspiration, who requires PEG tube placement. Consent was obtained from the pending sale to [facility] as the patient is a clark of the pending sale to [facility]. DESCRIPTION OF PROCEDURE: The procedure was done in the operating room. The patient was placed in a supine position in a semi-Jeronimo position and the abdomen was prepped and draped in the usual fashion. The gastroscope was inserted without difficulty through the mouth, into esophagus, and the stomach. The stomach was then inflated with air using a gastroscope, and despite multiple attempts, it was extremely difficult to obtain indentation of the anterior gastric wall following gentle tapping on the anterior abdominal wall with the index finger. In addition, the patient's sedation could not be deepened because of his recent stroke, and the patient was tensing his anterior rectus muscles causing the difficulty in identification of anterior gastric wall. Two separate incisions were made in the left upper quadrant, one just medial of the midclavicular line, the second one just lateral to the midline, and despite the 2 incisions and multiple attempts, the 16-gauge needle was inserted all the way into the peritoneal cavity without piercing the stomach. After these attempts, the procedure was aborted. The skin incision was closed with Benzoine and Steri-strips. The patient was transferred to the recovery room in satisfactory conditions and scheduled to undergo a Dubhoff placement in Radiology. DICTATING PHYSICIAN: DAVE GAONA M.D. [id number] PHY#: [id number] ID: [id number] JOB#: [id number] ACCT: [id number] cc:DAVE GAONA M.D. > MTDD
--- NOTE | 2017-07-05 15:05 | RADIOLOGY REPORT (SQ) ---
EXAM DESCRIPTION: INTRO/GI TUBE W/FLUORO; INTRO LONG GI TUBE (MILLAB) COMPLETED DATE/TIME: 07/05/2017 2:58 pm; 07/05/2017 2:55 pm REASON FOR STUDY: need for Dubhoff; NEED FOR DUBHOFF FOR FEEDINGS COMPARISON: None. TECHNIQUE: Nasoenteric feeding tube placement under fluoro RADIATION DOSE: 10 minutes 1 digital radiographic image saved to PACS. LIMITATIONS: None. FINDINGS: A nasoenteric feeding tube was placed under fluoroscopic guidance. The tube tip is at the pylorus. We were unable to pass the tube distal to the pylorus. Follow-up KUB in the morning will be performed. Tube tip placement was confirmed by injection of 30 mL of Gastrografin. There is prompt gastric empt maggie. IMPRESSION: Nasoenteric feeding tube placement under fluoro, the tip of the tube is in the pylorus.. Follow-up KUB tomorrow morning to assess whether the tube migrates distally into the duodenum COMMENT: Quality ID [id number]: Final reports for procedures using fluoroscopy that document radiation exp osure indices, or exposure time and number of fluorographic images (if radiation exposure indices are not available) TECHNICAL DOCUMENTATION: JOB ID: [id number] [employer]- All Rights Reserved
[2017-07-05] MEDS ORDERED: LIDOCAINE 2% INJ-PF (20 MG/ML) 2 ML AMPUL ONE (15:54)
[2017-07-05] MEDS: TAMSULOSIN HCL 0.4 MG CAP.SR.24H PO SCH (17:59)
[2017-07-05] MEDS: FINASTERIDE 5 MG TABLET PO SCH (17:59)
[2017-07-05] MEDS: CLOPIDOGREL BISULFATE 75 MG TABLET PO SCH (17:59)
[2017-07-05] MEDS: LISINOPRIL 10 MG TABLET PO SCH (17:59)
[2017-07-05] MEDS: METOPROLOL SUCCINATE 25 MG TAB.SR.24H PO SCH (18:00)
--- NOTE | 2017-07-05 20:12 | PDOC PROGRESS REPORT ---
Subjective Progress Note for:: 07/05/17 Subjective:: He was seen by the bedside, attempted PEG tube placement was not successful, he may need open G-tube placement, the intent is to transfer patient to a prison, the prison would not accept patient without a secure G-tube presently have a temporary feeding tube, increase his risk of aspiration, patient have dementia with CVA Reason For Visit: ACUTE CVA Physical Exam Vital Signs: Temp Pulse Resp BP Pulse Ox 97.3 F 97 20 154/68 H 93 07/05/17 19:30 07/05/17 19:30 07/05/17 19:30 07/05/17 19:30 07/05/17 19:30 Intake & Output 07/04/17 07/05/17 07/06/17 06:59 06:59 06:59 Intake Total 3059 1274 2262 Output Total 3350 1600 1175 Balance -291 -326 1087 Weight 78.2 kg 76.2 kg General appearance: PRESENT: no acute distress Eye exam: PRESENT: PERRLA Respiratory exam: PRESENT: clear to auscultation luis miguel Cardiovascular exam: PRESENT: +S1, +S2 GI/Abdominal exam: PRESENT: soft Neurological exam: PRESENT: alert Results Laboratory Results: 07/03/17 03:35 07/03/17 03:35 06/30/17 13:45 Blood Blood Culture - Final NO GROWTH IN 5 DAYS 06/30/17 06/30/17 13:45 13:45 Creatine Kinase 139 CK-MB (CK-2) 1.27 Troponin I 0.030 NT-Pro-B Natriuret Pep 1290 H Impressions: Head MRI 06/30/17 00:00 IMPRESSION: ACUTE LACUNAR-TYPE INFARCT INVOLVING THE RIGHT PERIVENTRICULAR WHITE MATTER PRESUMABLY ACCOUNTING FOR NEW ONSET LEFT-SIDED WEAKNESS. NO LARGE TERRITORY INFARCTION, HEMORRHAGE, OR MASS LESION. EVIDENCE OF ACUTE STROKE: YES. LENTICULOSTRIATE. Chest X-Ray 06/30/17 08:59 IMPRESSION: Left lower lobe pneumonitis. Head CT 06/30/17 09:01 IMPRESSION: CHRONIC CHANGES OF ATROPHY AND MICROVASCULAR ISCHEMIA. NO ACUTE PROCESS. EVIDENCE OF ACUTE STROKE: NO. Carotid Doppler Study 07/03/17 00:00 IMPRESSION: 50 to 69% stenosis left ICA. Modified Barium Swallow 07/03/17 08:00 IMPRESSION: NO EVIDENCE OF PENETRATION OR ASPIRATIONPLEASE SEE SPEECH PATHOLOGIST REPORT FOR OTHER FINDINGS AND RECOMMENDATIONS. Gastrostomy Tube Placement 07/05/17 00:00 IMPRESSION: Nasoenteric feeding tube placement under fluoro, the tip of the tube is in the pylorus.. Follow-up KUB tomorrow morning to assess whether the tube migrates distally into the duodenum Guidance Fluoroscopy 07/05/17 00:00 IMPRESSION: Nasoenteric feeding tube placement under fluoro, the tip of the tube is in the pylorus.. 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 Is this a current diagnosis for this admission?: Yes (3) Left lower lobe pneumonia Qualifiers: Pneumonia type: due to unspecified organism Qualified Code(s): J18.1 - Lobar pneumonia, unspecified organism Is this a current diagnosis for this admission?: Yes (4) Dementia Qualifiers: Dementia type: Alzheimer's disease Alzheimer's disease onset: unspecified onset Dementia behavioral disturbance: without behavioral disturbance Qualified Code(s): G30.9 - Alzheimer's disease, unspecified; F02.80 - Dementia in other diseases classified elsewhere without behavioral disturbance; F02.80 - Dementia in other diseases classified elsewhere without behavioral disturbance; F02.80 - Dementia in other diseases classified elsewhere without behavioral disturbance Is this a current diagnosis for this admission?: Yes (5) Acute left arterial ischemic stroke, ICA (internal carotid artery) Is this a current diagnosis for this admission?: Yes (6) Embolic cerebral infarction Qualifiers: Precerebral and cerebral artery: carotid artery Laterality of affected vessel: left Qualified Code(s): I63.132 - Cerebral infarction due to embolism of left carotid artery Is this a current diagnosis for this admission?: Yes - Plan Summary Plan Summary: We will hold nutrition at the moment because of increased risk of aspiration, the feeding tube will be used for the administration of medications
[2017-07-05] MEDS: ATORVASTATIN CALCIUM 20 MG TABLET PO SCH (20:36)
[2017-07-06] MEDS ORDERED: ROCURONIUM BROMIDE INJ 50 MG/5 ML VIAL IV ONE (08:14)
[2017-07-06] MEDS ORDERED: NEOSTIGMINE METHYLSULFATE 10 MG/10 ML VIAL ONE (08:14)
[2017-07-06] MEDS ORDERED: LIDOCAINE 2% INJ-PF (20 MG/ML) 2 ML AMPUL ONE (08:14)
[2017-07-06] MEDS ORDERED: SUCCINYLCHOLINE CHLORIDE INJ 200 MG/10 ML VIAL ONE (08:14)
[2017-07-06] MEDS: DOCUSATE SODIUM 100 MG CAPSULE PO SCH (10:03)
[2017-07-06] MEDS: LEVOFLOXACIN 750 MG/D5W RTU 750 MG/150 ML RTUPB IV SCH (10:11)
[2017-07-06] MEDS: ENOXAPARIN SODIUM INJ 40 MG/0.4 ML DISP.SYRIN SUBCUT SCH (10:12)
[2017-07-06] MEDS: CEFEPIME HCL 2 GM in NORMAL SALINE 100 ML IV SCH ×2 (12:20→22:01)
[2017-07-06] MEDS ORDERED: DEXTROSE 40% GEL 15 GM TUBE PO PRN ×3 (13:33→21:11)
[2017-07-06] MEDS ORDERED: GLUCAGON,HUMAN RECOMB 1 MG INJ SUBCUT PRN ×2 (13:33→21:12)
[2017-07-06] MEDS ORDERED: DEXTROSE 50%-WATER 25 GM/50 ML DISP.SYRIN IV PRN ×4 (13:33→21:10)
--- NOTE | 2017-07-06 13:33 | PDOC PROGRESS REPORT ---
Subjective Progress Note for:: 07/06/17 Subjective:: comfortable Reason For Visit: ACUTE CVA Physical Exam Vital Signs: Temp Pulse Resp BP Pulse Ox 98.1 F 94 16 146/78 H 92 07/06/17 11:30 07/06/17 12:10 07/06/17 12:10 07/06/17 11:30 07/06/17 12:10 Intake & Output 07/05/17 07/06/17 07/07/17 06:59 06:59 06:59 Intake Total 1274 2961 Output Total 1600 1775 Balance -326 1186 Weight 76.2 kg 79.4 kg General appearance: PRESENT: no acute distress, cooperative Respiratory exam: PRESENT: clear to auscultation luis miguel Cardiovascular exam: PRESENT: RRR GI/Abdominal exam: PRESENT: soft Results Laboratory Results: 07/03/17 03:35 07/03/17 03:35 06/30/17 13:45 Blood Blood Culture - Final NO GROWTH IN 5 DAYS 06/30/17 06/30/17 13:45 13:45 Creatine Kinase 139 CK-MB (CK-2) 1.27 Troponin I 0.030 NT-Pro-B Natriuret Pep 1290 H Impressions: Head MRI 06/30/17 00:00 IMPRESSION: ACUTE LACUNAR-TYPE INFARCT INVOLVING THE RIGHT PERIVENTRICULAR WHITE MATTER PRESUMABLY ACCOUNTING FOR NEW ONSET LEFT-SIDED WEAKNESS. NO LARGE TERRITORY INFARCTION, HEMORRHAGE, OR MASS LESION. EVIDENCE OF ACUTE STROKE: YES. LENTICULOSTRIATE. Chest X-Ray 06/30/17 08:59 IMPRESSION: Left lower lobe pneumonitis. Head CT 06/30/17 09:01 IMPRESSION: CHRONIC CHANGES OF ATROPHY AND MICROVASCULAR ISCHEMIA. NO ACUTE PROCESS. EVIDENCE OF ACUTE STROKE: NO. Carotid Doppler Study 07/03/17 00:00 IMPRESSION: 50 to 69% stenosis left ICA. Modified Barium Swallow 07/03/17 08:00 IMPRESSION: NO EVIDENCE OF PENETRATION OR ASPIRATIONPLEASE SEE SPEECH PATHOLOGIST REPORT FOR OTHER FINDINGS AND RECOMMENDATIONS. Gastrostomy Tube Placement 07/05/17 00:00 IMPRESSION: Nasoenteric feeding tube placement under fluoro, the tip of the tube is in the pylorus.. Follow-up KUB tomorrow morning to assess whether the tube migrates distally into the duodenum Guidance Fluoroscopy 07/05/17 00:00 IMPRESSION: Nasoenteric feeding tube placement under fluoro, the tip of the tube is in the pylorus.. Follow-up KUB tomorrow morning to assess whether the tube migrates distally into the duodenum Assessment & Plan - Plan Summary Plan Summary: A/ Malnutrition Dysphagia Aspiration Stroke S/p failed PEG placement on 07/05/17 S/p Dubhoff placement in Radiology on 07/05/17; however, the patient has pulled it out P/ If consent will be obtained from his cousin in [place], I will plan to perform open gastrostomy tube placement today
[2017-07-06] MEDS ORDERED: (PENDING PHARMACY ID) (Memantine Hcl/Donepezil Hcl [Namzaric 28 Mg-10 Mg Capsule] 1 CAP) PO SCH (15:00)
[2017-07-06] MEDS ORDERED: FENTANYL CITRATE INJ/PF 100 MCG/2 ML AMPUL ONE ×2 (15:28→15:29)
[2017-07-06] MEDS ORDERED: KETAMINE HCL INJ 500 MG/10 ML VIAL ONE (15:28)
[2017-07-06] MEDS ORDERED: MIDAZOLAM 2 MG/2 ML INJ ONE (15:28)
[2017-07-06] MEDS ORDERED: PROPOFOL INJ 200 MG/20 ML VIAL IV ONE (15:29)
[2017-07-06] MEDS ORDERED: EPHEDRINE SULFATE INJ 50 MG/1 ML AMPULE ONE (15:29)
[2017-07-06] MEDS ORDERED: BUPIVACAINE HCL 0.5%-EPI 1:200000 INJ/PF 30 ML VIAL ONE (15:36)
[2017-07-06] MEDS ORDERED: METOPROLOL TARTRATE 25 MG TABLET PO SCH (18:00)
[2017-07-06] MEDS ORDERED: NORMAL SALINE 1000 ML 1,000 ML IV PRN (18:22)
--- NOTE | 2017-07-06 18:22 | Operative Report ---
Operative Report DATE OF SURGERY: 07/06/17 PREOPERATIVE DIAGNOSIS: aspiration, malnutrition POSTOPERATIVE DIAGNOSIS: same OPERATION: attempted G-tube placement; Feeding Jejunostomy tube placement SURGEON: DAVE GAONA ANESTHESIA: GA - plus local TISSUE REMOVED OR ALTERED: none COMPLICATIONS: none ESTIMATED BLOOD LOSS: 30 mL INTRAOPERATIVE FINDINGS: stomach found to be intrathoracic
[2017-07-06] MEDS: HYDROMORPHONE HCL INJ/PF 2 MG/ML AMPULE IV PRN ×2 (19:35→23:09)
[2017-07-06] MEDS ORDERED: DOCUSATE SODIUM 100 MG CAPSULE PO ONE (21:00)
[2017-07-06] MEDS ORDERED: METOPROLOL TARTRATE 25 MG TABLET PO ONE (21:00)
[2017-07-06] MEDS ORDERED: FINASTERIDE 5 MG TABLET PO ONE (21:00)
[2017-07-06] MEDS ORDERED: CLOPIDOGREL BISULFATE 75 MG TABLET PO ONE (21:00)
[2017-07-06] MEDS ORDERED: LISINOPRIL 10 MG TABLET PO ONE (21:00)
[2017-07-06] MEDS ORDERED: ACETAMINOPHEN 325 MG TABLET PO PRN (21:07)
--- NOTE | 2017-07-06 21:10 | PDOC PROGRESS REPORT ---
Subjective Progress Note for:: 07/06/17 Subjective:: Patient had J-tube placement today, seen by the bedside Reason For Visit: ACUTE CVA Physical Exam Vital Signs: Temp Pulse Resp BP Pulse Ox 97.8 F 125 H 22 H 156/83 H 97 07/06/17 18:33 07/06/17 18:33 07/06/17 18:33 07/06/17 18:33 07/06/17 18:33 Intake & Output 07/05/17 07/06/17 07/07/17 06:59 06:59 06:59 Intake Total 1274 2961 7000 Output Total 1600 1775 1515 Balance -326 1186 5485 Weight 76.2 kg 79.4 kg General appearance: PRESENT: no acute distress Eye exam: PRESENT: PERRLA Respiratory exam: PRESENT: clear to auscultation luis miguel Cardiovascular exam: PRESENT: +S1, +S2 GI/Abdominal exam: PRESENT: soft Neurological exam: PRESENT: alert Results Laboratory Results: 07/03/17 03:35 07/03/17 03:35 06/30/17 06/30/17 13:45 13:45 Creatine Kinase 139 CK-MB (CK-2) 1.27 Troponin I 0.030 NT-Pro-B Natriuret Pep 1290 H Impressions: Head MRI 06/30/17 00:00 IMPRESSION: ACUTE LACUNAR-TYPE INFARCT INVOLVING THE RIGHT PERIVENTRICULAR WHITE MATTER PRESUMABLY ACCOUNTING FOR NEW ONSET LEFT-SIDED WEAKNESS. NO LARGE TERRITORY INFARCTION, HEMORRHAGE, OR MASS LESION. EVIDENCE OF ACUTE STROKE: YES. LENTICULOSTRIATE. Chest X-Ray 06/30/17 08:59 IMPRESSION: Left lower lobe pneumonitis. Head CT 06/30/17 09:01 IMPRESSION: CHRONIC CHANGES OF ATROPHY AND MICROVASCULAR ISCHEMIA. NO ACUTE PROCESS. EVIDENCE OF ACUTE STROKE: NO. Carotid Doppler Study 07/03/17 00:00 IMPRESSION: 50 to 69% stenosis left ICA. Modified Barium Swallow 07/03/17 08:00 IMPRESSION: NO EVIDENCE OF PENETRATION OR ASPIRATIONPLEASE SEE SPEECH PATHOLOGIST REPORT FOR OTHER FINDINGS AND RECOMMENDATIONS. Gastrostomy Tube Placement 07/05/17 00:00 IMPRESSION: Nasoenteric feeding tube placement under fluoro, the tip of the tube is in the pylorus.. Follow-up KUB tomorrow morning to assess whether the tube migrates distally into the duodenum Guidance Fluoroscopy 07/05/17 00:00 IMPRESSION: Nasoenteric feeding tube placement under fluoro, the tip of the tube is in the pylorus.. 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 Is this a current diagnosis for this admission?: Yes (3) Left lower lobe pneumonia Qualifiers: Pneumonia type: due to unspecified organism Qualified Code(s): J18.1 - Lobar pneumonia, unspecified organism Is this a current diagnosis for this admission?: Yes (4) Dementia Qualifiers: Dementia type: Alzheimer's disease Alzheimer's disease onset: unspecified onset Dementia behavioral disturbance: without behavioral disturbance Qualified Code(s): G30.9 - Alzheimer's disease, unspecified; F02.80 - Dementia in other diseases classified elsewhere without behavioral disturbance; F02.80 - Dementia in other diseases classified elsewhere without behavioral disturbance; F02.80 - Dementia in other diseases classified elsewhere without behavioral disturbance Is this a current diagnosis for this admission?: Yes (5) Acute left arterial ischemic stroke, ICA (internal carotid artery) Is this a current diagnosis for this admission?: Yes (6) Embolic cerebral infarction Qualifiers: Precerebral and cerebral artery: carotid artery Laterality of affected vessel: left Qualified Code(s): I63.132 - Cerebral infarction due to embolism of left carotid artery Is this a current diagnosis for this admission?: Yes
[2017-07-06] MEDS ORDERED: IPRATROPIUM/ALBUTEROL 0.5-2.5 MG/3 ML AMPUL NEB PRN (21:12)
[2017-07-06 21:38] LABS: ABSOLUTE LYMPHOCYTES (AUTO) 1.1 10^3/uL (0.5-4.7); ABSOLUTE MONOCYTES (AUTO) 1.1 10^3/uL (0.1-1.4); ABSOLUTE NEUT (AUTO) 13.2 10^3/uL (1.7-8.2); BASOPHILS % (AUTO) 0.3 % (0-2); EOSINOPHILS % (AUTO) 0.2 % (0-6); HEMATOCRIT 41.5 % (37.9-51.0); HEMOGLOBIN 13.9 g/dL (13.5-17.0); LYMPHOCYTES % (AUTO) 7.4 % (13-45); MEAN CORPUSCULAR HEMOGLOBIN 31.7 pg (27.0-33.4); MEAN CORPUSCULAR HGB CONC 33.6 g/dL (32.0-36.0); MEAN CORPUSCULAR VOLUME 94 fl (80-97); MONOCYTES % (AUTO) 7.1 % (3-13); PLATELET COUNT 272 10^3/uL (150-450); RED CELL DISTRIBUTION WIDTH 13.6 % (11.5-14.0); TOTAL CELLS COUNTED % (AUTO) 100 %; WHITE BLOOD COUNT 15.5 10^3/uL (4.0-10.5)
[2017-07-06 21:58] LABS: ALANINE AMINOTRANSFERASE 30 U/L (21-72); ALBUMIN 2.5 g/dL (3.5-5.0); ALKALINE PHOSPHATASE 51 U/L (38-126); ANION GAP 10 (5-19); ASPARTATE AMINO TRANSFERASE 23 U/L (17-59); BILIRUBIN,DIRECT 0.5 mg/dL (0.0-0.4); BILIRUBIN,TOTAL 0.6 mg/dL (0.2-1.3); BLOOD UREA NITROGEN 34 mg/dL (7-20); CALCIUM 7.8 mg/dL (8.4-10.2); CARBON DIOXIDE 25 mmol/L (22-30); CHLORIDE 113 mmol/L (98-107); GLUCOSE 148 mg/dL (75-110); POTASSIUM 3.1 mmol/L (3.6-5.0); SODIUM 148.4 mmol/L (137-145); TOTAL PROTEIN 5.1 g/dL (6.3-8.2)
[2017-07-06] MEDS: ATORVASTATIN CALCIUM 20 MG TABLET PO SCH (22:00)
[2017-07-07] MEDS: HYDROMORPHONE HCL INJ/PF 2 MG/ML AMPULE IV PRN ×3 (02:35→13:37)
[2017-07-07 05:51] LABS: ABSOLUTE MONOCYTES (AUTO) 1.1 10^3/uL (0.1-1.4); ABSOLUTE NEUT (AUTO) 11.9 10^3/uL (1.7-8.2); BASOPHILS % (AUTO) 0.2 % (0-2); EOSINOPHILS % (AUTO) 0.2 % (0-6); HEMATOCRIT 41.8 % (37.9-51.0); HEMOGLOBIN 14.1 g/dL (13.5-17.0); LYMPHOCYTES % (AUTO) 7.1 % (13-45); MEAN CORPUSCULAR HEMOGLOBIN 31.4 pg (27.0-33.4); MEAN CORPUSCULAR HGB CONC 33.8 g/dL (32.0-36.0); MEAN CORPUSCULAR VOLUME 93 fl (80-97); PLATELET COUNT 294 10^3/uL (150-450); RED BLOOD COUNT 4.49 10^6/uL (4.35-5.55); RED CELL DISTRIBUTION WIDTH 13.2 % (11.5-14.0); SEGMENTED NEUTROPHILS % (AUTO) 84.5 % (42-78); TOTAL CELLS COUNTED % (AUTO) 100 %
[2017-07-07 05:58] LABS: ALANINE AMINOTRANSFERASE 27 U/L (21-72); ALBUMIN 2.5 g/dL (3.5-5.0); ALKALINE PHOSPHATASE 56 U/L (38-126); ANION GAP 12 (5-19); ASPARTATE AMINO TRANSFERASE 19 U/L (17-59); BILIRUBIN,DIRECT 0.4 mg/dL (0.0-0.4); BILIRUBIN,TOTAL 0.5 mg/dL (0.2-1.3); BLOOD UREA NITROGEN 32 mg/dL (7-20); CALCIUM 7.7 mg/dL (8.4-10.2); CARBON DIOXIDE 25 mmol/L (22-30); CHLORIDE 115 mmol/L (98-107); GLUCOSE 148 mg/dL (75-110); POTASSIUM 3.4 mmol/L (3.6-5.0); SODIUM 151.7 mmol/L (137-145); TOTAL PROTEIN 5.2 g/dL (6.3-8.2)
[2017-07-07] MEDS ORDERED: LEVOFLOXACIN 750 MG/D5W RTU 750 MG/150 ML RTUPB IV SCH (10:00)
[2017-07-07] MEDS: ALPRAZOLAM 0.5 MG TABLET JT PRN ×2 (10:42→22:35)
[2017-07-07] MEDS: ENOXAPARIN SODIUM INJ 40 MG/0.4 ML DISP.SYRIN SUBCUT SCH (10:44)
[2017-07-07] MEDS: DOCUSATE SODIUM 100 MG CAPSULE PO SCH ×2 (10:45→17:31)
[2017-07-07] MEDS: CEFEPIME HCL 2 GM in NORMAL SALINE 100 ML IV SCH (12:36)
--- NOTE | 2017-07-07 14:32 | OPERATIVE REPORT E ---
Operative Report NAME: ALYSE ÁLVAREZ : 1935 AGE: 82Y DATE OF SURGERY: 07/06/2017 ROOM: 301 PREOPERATIVE DIAGNOSIS: 1. Malnutrition aspiration. 2. Status post stroke. 3. Status post attempted placement of percutaneous endoscopic gastrostomy. POSTOPERATIVE DIAGNOSIS: 1. Malnutrition aspiration. 2. Status post stroke. 3. Status post attempted placement of percutaneous endoscopic gastrostomy. OPERATION: 1. Attempted open gastrostomy tube placement. 2. Open jejunostomy tube placement. SURGEON: DAVE GAONA M.D. None. ANESTHESIA: General plus 30 mL of 0.5% Marcaine with epinephrine. IV FLUIDS: 1000 URINE OUTPUT: Not available. DRAINS: None. INDICATION AND FINDINGS: This is an 82-year-old male with a history of stroke, aphasia, dysphagia, aspiration, and malnutrition who underwent attempted placement of a gastrostomy tube or percutaneous endoscopic gastrostomy tube yesterday. This could not be accomplished as the stomach could not be identify. At this point, the procedure was aborted. A Dubhoff catheter was placed in Radiology yesterday but the patient pulled it. Therefore, the patient is scheduled to undergo placement of an open gastrostomy tube. Consent was obtained from the patient's cousin. DESCRIPTION OF PROCEDURE: The procedure was done in the operating room. The patient was placed in a supine position, general anesthesia induced by endotracheal intubation. Abdomen prepped and draped in usual fashion. A midline incision was made just above the umbilicus about 5 fingerbreadths wide. The subcutaneous fat was divided with Bovie and the peritoneal cavity was entered. However, despite multiple attempts, the stomach could not be identified. 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 At this point, this procedure was aborted and an open jejunostomy was planned. The small bowel was run from the terminal ileum up to up to the ligament of Treitz and at about 30 cm, the insertion point of the feeding jejunostomy was . On the antimesenteric border of the small bowel, a double purse string 2-0 silk suture was placed and the needles were left in place. A polyethylene Berry catheter was inserted through a stab wound in the left upper quadrant and delivered through the abdominal wall into the peritoneal cavity. Multiple side hole were cut in the distal portion of the catheter to improve. delivery of the feeding medium. An enterotomy was made in the middle of the double purse string suture using Bovie. The Berry catheter was inserted into the small bowel, advanced distally without kinking, and the double purse string suture was tied around to the catheter. Jaki sutures were then placed in a distal to proximal fashion to cover the catheter with 10 cm of jejunum. The jejunostomy catheter was then gently pulled against the abdominal wall together with the small bowel and this was then tied against the anterior abdominal wall with additional 2-0 silk sutures. The insertion point of the jejunostomy tube was tied against the anterior abdominal wall with 2-0 silk sutures so to prevent bowel loop twisting. After this was accomplished, the balloon port of the Berry catheter was cut and the catheter was flushed with normal saline without difficulty with good return. At this point, the peritoneal cavity was irrigated with 2 L of warm normal saline which was fully aspirated. The abdominal wall was closed with running #1 looped PDS suture. The abdominal wall was then infiltrated with 30 mL of 0.5% Marcaine with epinephrine. The skin was closed with nahun. The feeding jejunostomy catheter was secured to the skin using a [id number] suture and sterile dressings applied. The patient tolerated the procedure well, extubated, and transferred to the recovery room in satisfactory condition. DICTATING PHYSICIAN: DAVE GAONA M.D. [id number] PHY#: [id number] ID: [id number] JOB#: [id number] ACCT: [id number] cc:DAVE GAONA M.D. > MTDD
--- NOTE | 2017-07-07 18:34 | PROGRESS NOTE E ---
Progress Note NAME: ALYSE ÁLVAREZ : 1935 AGE: 82Y DATE: 07/07/2017 ROOM: 301 SUBJECTIVE: The patient is 1 day status post operative jejunostomy. The patient has had an uneventful night. Apparently he is interested in passing into the next world. His overall neurologic condition has deteriorated. OBJECTIVE: GENERAL: The patient is mumbling incomprehensible words. ABDOMEN: The abdomen is examined. Operative incision and drain sites look good. No complications. ASSESSMENT: STATUS POST OPERATIVE J-TUBE BY DR. GAONA, POSTOPERATIVE DAY 1. NO COMPLICATIONS. RECOMMENDATIONS: 1. The patient can have tube feeds advanced as tolerated. 2. We will sign off at this time. Reconsult if needed. DICTATING PHYSICIAN: JESSE KOHLI M.D. [id number] PHY#: [id number] ID: [id number] JOB#: [id number] ACCT: [id number] cc: >
--- NOTE | 2017-07-07 21:56 | PDOC PROGRESS REPORT ---
Subjective Progress Note for:: 07/07/17 Subjective:: Patient was seen by the bedside, he had open wound G-tube placement yesterday, he believes is dying very pessimistic Reason For Visit: ACUTE CVA Physical Exam Vital Signs: Temp Pulse Resp BP Pulse Ox 97.9 F 108 H 20 156/89 H 98 07/07/17 15:07 07/07/17 19:00 07/07/17 15:07 07/07/17 15:07 07/07/17 15:07 Intake & Output 07/06/17 07/07/17 07/08/17 06:59 06:59 06:59 Intake Total 2961 8250 850 Output Total 1773 8825 550 Balance 1186 6335 300 Weight 79.4 kg 77.5 kg General appearance: PRESENT: no acute distress Eye exam: PRESENT: PERRLA Respiratory exam: PRESENT: clear to auscultation luis miguel Cardiovascular exam: PRESENT: +S1, +S2 GI/Abdominal exam: PRESENT: soft, other - There is a G-tube in place Neurological exam: PRESENT: alert, CN II-XII grossly intact Results Laboratory Results: 07/07/17 04:44 07/07/17 04:44 07/06/17 07/07/17 07/07/17 21:29 04:44 04:44 WBC 14.0 H RBC 4.49 Hgb 14.1 Hct 41.8 MCV 93 MCH 31.4 MCHC 33.8 RDW 13.2 Plt Count 294 Seg Neutrophils % 84.5 H Lymphocytes % 7.1 L Monocytes % 8.0 Eosinophils % 0.2 Basophils % 0.2 Absolute Neutrophils 11.9 H Absolute Lymphocytes 1.0 Absolute Monocytes 1.1 Absolute Eosinophils 0.0 Absolute Basophils 0.0 Sodium 148.4 H 151.7 H Potassium 3.1 L 3.4 L Chloride 113 H 115 H Carbon Dioxide 25 25 Anion Gap 10 12 BUN 34 H 32 H Creatinine 1.01 1.01 Est GFR ( Amer) > 60 > 60 Est GFR (Non-Af Amer) > 60 > 60 Glucose 148 H 148 H Calcium 7.8 L 7.7 L Total Bilirubin 0.6 0.5 AST 23 19 ALT 30 27 Alkaline Phosphatase 51 56 Total Protein 5.1 L 5.2 L Albumin 2.5 L 2.5 L 06/30/17 06/30/17 13:45 13:45 Creatine Kinase 139 CK-MB (CK-2) 1.27 Troponin I 0.030 NT-Pro-B Natriuret Pep 1290 H Impressions: Head MRI 06/30/17 00:00 IMPRESSION: ACUTE LACUNAR-TYPE INFARCT INVOLVING THE RIGHT PERIVENTRICULAR WHITE MATTER PRESUMABLY ACCOUNTING FOR NEW ONSET LEFT-SIDED WEAKNESS. NO LARGE TERRITORY INFARCTION, HEMORRHAGE, OR MASS LESION. EVIDENCE OF ACUTE STROKE: YES. LENTICULOSTRIATE. Chest X-Ray 06/30/17 08:59 IMPRESSION: Left lower lobe pneumonitis. Head CT 06/30/17 09:01 IMPRESSION: CHRONIC CHANGES OF ATROPHY AND MICROVASCULAR ISCHEMIA. NO ACUTE PROCESS. EVIDENCE OF ACUTE STROKE: NO. Carotid Doppler Study 07/03/17 00:00 IMPRESSION: 50 to 69% stenosis left ICA. Modified Barium Swallow 07/03/17 08:00 IMPRESSION: NO EVIDENCE OF PENETRATION OR ASPIRATIONPLEASE SEE SPEECH PATHOLOGIST REPORT FOR OTHER FINDINGS AND RECOMMENDATIONS. Gastrostomy Tube Placement 07/05/17 00:00 IMPRESSION: Nasoenteric feeding tube placement under fluoro, the tip of the tube is in the pylorus.. Follow-up KUB tomorrow morning to assess whether the tube migrates distally into the duodenum Guidance Fluoroscopy 07/05/17 00:00 IMPRESSION: Nasoenteric feeding tube placement under fluoro, the tip of the tube is in the pylorus.. 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 Is this a current diagnosis for this admission?: Yes (3) Left lower lobe pneumonia Qualifiers: Pneumonia type: due to unspecified organism Qualified Code(s): J18.1 - Lobar pneumonia, unspecified organism Is this a current diagnosis for this admission?: Yes (4) Dementia Qualifiers: Dementia type: Alzheimer's disease Alzheimer's disease onset: unspecified onset Dementia behavioral disturbance: without behavioral disturbance Qualified Code(s): G30.9 - Alzheimer's disease, unspecified; F02.80 - Dementia in other diseases classified elsewhere without behavioral disturbance; F02.80 - Dementia in other diseases classified elsewhere without behavioral disturbance; F02.80 - Dementia in other diseases classified elsewhere without behavioral disturbance Is this a current diagnosis for this admission?: Yes (5) Acute left arterial ischemic stroke, ICA (internal carotid artery) Is this a current diagnosis for this admission?: Yes (6) Embolic cerebral infarction Qualifiers: Precerebral and cerebral artery: carotid artery Laterality of affected vessel: left Qualified Code(s): I63.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
[2017-07-07] MEDS: ATORVASTATIN CALCIUM 20 MG TABLET PO SCH (22:35)
[2017-07-08] MEDS: HYDROMORPHONE HCL INJ/PF 2 MG/ML AMPULE IV PRN ×5 (01:56→23:38)
[2017-07-08 06:09] LABS: ABSOLUTE BASOPHILS # (AUTO) 0.1 10^3/uL (0.0-0.2); ABSOLUTE EOSINOPHILS # (AUTO) 0.2 10^3/uL (0.0-0.6); ABSOLUTE LYMPHOCYTES (AUTO) 1.2 10^3/uL (0.5-4.7); ABSOLUTE NEUT (AUTO) 12.1 10^3/uL (1.7-8.2); BASOPHILS % (AUTO) 0.8 % (0-2); EOSINOPHILS % (AUTO) 1.4 % (0-6); HEMATOCRIT 39.8 % (37.9-51.0); HEMOGLOBIN 13.4 g/dL (13.5-17.0); LYMPHOCYTES % (AUTO) 8.3 % (13-45); MEAN CORPUSCULAR HEMOGLOBIN 31.5 pg (27.0-33.4); MEAN CORPUSCULAR HGB CONC 33.7 g/dL (32.0-36.0); MEAN CORPUSCULAR VOLUME 93 fl (80-97); PLATELET COUNT 289 10^3/uL (150-450); RED BLOOD COUNT 4.26 10^6/uL (4.35-5.55); RED CELL DISTRIBUTION WIDTH 13.7 % (11.5-14.0); SEGMENTED NEUTROPHILS % (AUTO) 82.5 % (42-78); TOTAL CELLS COUNTED % (AUTO) 100 %; WHITE BLOOD COUNT 14.6 10^3/uL (4.0-10.5)
[2017-07-08 06:46] LABS: ALANINE AMINOTRANSFERASE 30 U/L (21-72); ALBUMIN 2.5 g/dL (3.5-5.0); ALKALINE PHOSPHATASE 56 U/L (38-126); ANION GAP 12 (5-19); ASPARTATE AMINO TRANSFERASE 26 U/L (17-59); BILIRUBIN,DIRECT 0.1 mg/dL (0.0-0.4); BILIRUBIN,TOTAL 0.3 mg/dL (0.2-1.3); BLOOD UREA NITROGEN 32 mg/dL (7-20); CARBON DIOXIDE 23 mmol/L (22-30); CHLORIDE 118 mmol/L (98-107); GLUCOSE 186 mg/dL (75-110)
[2017-07-08 07:14] LABS: POTASSIUM 2.9 mmol/L (3.6-5.0)
[2017-07-08] MEDS ORDERED: POTASSIUM CHLORIDE 20 MEQ/15 ML UDCUP PO ONE (11:15)
[2017-07-08] MEDS: DOCUSATE SODIUM 100 MG CAPSULE PO SCH ×2 (11:45→18:53)
[2017-07-08] MEDS: ENOXAPARIN SODIUM INJ 40 MG/0.4 ML DISP.SYRIN SUBCUT SCH (11:46)
[2017-07-08] MEDS ORDERED: LEVOTHYROXINE SODIUM 0.05 MG TABLET PO ONE (13:00)
[2017-07-08] MEDS ORDERED: POTASSIUM CHLORIDE 10 MEQ TABLET.SA PO SCH (14:00)
[2017-07-08] MEDS: POTASSIUM CHLORIDE 20 MEQ/15 ML UDCUP PO SCH ×2 (14:35→22:47)
--- NOTE | 2017-07-08 16:17 | RADIOLOGY REPORT (SQ) ---
EXAM DESCRIPTION: CHEST SINGLE VIEW COMPLETED DATE/TIME: 07/08/2017 4:05 pm REASON FOR STUDY: sob/ abnormal lung sounds COMPARISON: Chest films 06/30/2017, 05/29/2017 EXAM PARAMETERS: NUMBER OF VIEWS: One view. TECHNIQUE: Single frontal radiographic view of the chest acquired. RADIATION DOSE: NA LIMITATIONS: AP portable technique, large patient. Low lung volumes. FINDINGS: LUNGS AND PLEURA: Mild bibasilar bandlike atelectasis. No pleural effusions. No pneumothorax. MEDIASTINUM AND HILAR STRUCTURES: No masses. Contour normal. HEART AND VASCULAR STRUCTURES: No cardiomegaly BONES: No acute findings. HARDWARE: None in the chest. OTHER: Radiodense barium in the colon from prior video assisted swallowing study 07/03/2017 IMPRESSION: Bibasilar atelectasis TECHNICAL DOCUMENTATION: JOB ID: [id number] [employer]- All Rights Reserved Reading location - IP/workstation name: [email or web address]
--- NOTE | 2017-07-08 20:11 | PDOC PROGRESS REPORT ---
Subjective Progress Note for:: 07/08/17 Subjective:: Patient was seen by the bedside, on auscultation of the chest, there is crackles in both lung jang both chest x-ray did not show any definitive infiltrates. Reason For Visit: ACUTE CVA Physical Exam Vital Signs: Temp Pulse Resp BP Pulse Ox 97.8 F 108 H 32 H 179/87 H 97 07/08/17 15:23 07/08/17 15:23 07/08/17 15:23 07/08/17 15:23 07/08/17 15:23 Intake & Output 07/07/17 07/08/17 07/09/17 06:59 06:59 06:59 Intake Total 8250 2424 495 Output Total 1915 1050 550 Balance 6335 1374 -55 Weight 77.5 kg 80.5 kg General appearance: PRESENT: no acute distress Respiratory exam: PRESENT: crackles Cardiovascular exam: PRESENT: +S1, +S2 GI/Abdominal exam: PRESENT: soft Neurological exam: PRESENT: alert Results Laboratory Results: 07/08/17 05:45 07/08/17 05:45 07/08/17 07/08/17 05:45 05:45 WBC 14.6 H RBC 4.26 L Hgb 13.4 L Hct 39.8 MCV 93 MCH 31.5 MCHC 33.7 RDW 13.7 Plt Count 289 Seg Neutrophils % 82.5 H Lymphocytes % 8.3 L Monocytes % 7.0 Eosinophils % 1.4 Basophils % 0.8 Absolute Neutrophils 12.1 H Absolute Lymphocytes 1.2 Absolute Monocytes 1.0 Absolute Eosinophils 0.2 Absolute Basophils 0.1 Sodium 153.0 H Potassium 2.9 L* Chloride 118 H Carbon Dioxide 23 Anion Gap 12 BUN 32 H Creatinine 0.90 Est GFR ( Amer) > 60 Est GFR (Non-Af Amer) > 60 Glucose 186 H Calcium 8.0 L Total Bilirubin 0.3 AST 26 ALT 30 Alkaline Phosphatase 56 Total Protein 5.0 L Albumin 2.5 L 06/30/17 06/30/17 13:45 13:45 Creatine Kinase 139 CK-MB (CK-2) 1.27 Troponin I 0.030 NT-Pro-B Natriuret Pep 1290 H Impressions: Head MRI 06/30/17 00:00 IMPRESSION: ACUTE LACUNAR-TYPE INFARCT INVOLVING THE RIGHT PERIVENTRICULAR WHITE MATTER PRESUMABLY ACCOUNTING FOR NEW ONSET LEFT-SIDED WEAKNESS. NO LARGE TERRITORY INFARCTION, HEMORRHAGE, OR MASS LESION. EVIDENCE OF ACUTE STROKE: YES. LENTICULOSTRIATE. Head CT 06/30/17 09:01 IMPRESSION: CHRONIC CHANGES OF ATROPHY AND MICROVASCULAR ISCHEMIA. NO ACUTE PROCESS. EVIDENCE OF ACUTE STROKE: NO. Carotid Doppler Study 07/03/17 00:00 IMPRESSION: 50 to 69% stenosis left ICA. Modified Barium Swallow 07/03/17 08:00 IMPRESSION: NO EVIDENCE OF PENETRATION OR ASPIRATIONPLEASE SEE SPEECH PATHOLOGIST REPORT FOR OTHER FINDINGS AND RECOMMENDATIONS. Gastrostomy Tube Placement 07/05/17 00:00 IMPRESSION: Nasoenteric feeding tube placement under fluoro, the tip of the tube is in the pylorus.. Follow-up KUB tomorrow morning to assess whether the tube migrates distally into the duodenum Guidance Fluoroscopy 07/05/17 00:00 IMPRESSION: Nasoenteric feeding tube placement under fluoro, the tip of the tube is in the pylorus.. 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 Is this a current diagnosis for this admission?: Yes (3) Left lower lobe pneumonia Qualifiers: Pneumonia type: due to unspecified organism Qualified Code(s): J18.1 - Lobar pneumonia, unspecified organism Is this a current diagnosis for this admission?: Yes (4) Dementia Qualifiers: Dementia type: Alzheimer's disease Alzheimer's disease onset: unspecified onset Dementia behavioral disturbance: without behavioral disturbance Qualified Code(s): G30.9 - Alzheimer's disease, unspecified; F02.80 - Dementia in other diseases classified elsewhere without behavioral disturbance; F02.80 - Dementia in other diseases classified elsewhere without behavioral disturbance; F02.80 - Dementia in other diseases classified elsewhere without behavioral disturbance Is this a current diagnosis for this admission?: Yes (5) Acute left arterial ischemic stroke, ICA (internal carotid artery) Is this a current diagnosis for this admission?: Yes (6) Embolic cerebral infarction Qualifiers: Precerebral and cerebral artery: carotid artery Laterality of affected vessel: left Qualified Code(s): I63.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
--- NOTE | 2017-07-08 21:31 | RADIOLOGY REPORT (SQ) ---
EXAM DESCRIPTION: CT CHEST WITHOUT COMPLETED DATE/TIME: 07/08/2017 9:09 pm REASON FOR STUDY: pneumonia COMPARISON: 05/17/2014 TECHNIQUE: CT scan performed of the chest without intravenous contrast. Images reviewed with lung, soft tissue and bone windows. Reconstructed coronal and sagittal MPR images reviewed. All images st ored on PACS. All CT scanners at this facility use dose modulation, iterative reconstruction, and/or weight based d osing when appropriate to reduce radiation dose to as low as reasonably achievable (ALARA). [facility]: Dose Right [facility]: CareDose [facility]: Dose Right [facility]: Teradose 4D [facility]: [employer] RADIATION DOSE: CT Rad equipment meets quality standard of care and radiation dose reduction techniq ues were employed. CTDIvol: 14.4 mGy. DLP: 625 mGy-cm. mGy. LIMITATIONS: No technical limitations. FINDINGS: LUNGS AND PLEURA: Dense consolidation throughout the left lower lobe with small patchy are as involving the right lower lobe and inferior left upper lobe. Small bilateral pleural effusions. No pneumothorax. Similar parenchymal nodularity. HILAR AND MEDIASTINAL STRUCTURES: Similar mediastinal and hilar nodes. HEART AND VASCULAR STRUCTURES: No aneurysm. No pericardial effusion. UPPER ABDOMEN: G-tube. Limited exam. THYROID AND OTHER SOFT TISSUES: No masses. No adenopathy. BONES: No acute finding. HARDWARE: None in the chest. OTHER: No other significant findings. IMPRESSION: Dense consolidation throughout the left lower lobe with small patchy areas involving the right lower lobe and inferior left upper lobe. Small bilateral pleural effusions. TECHNICAL DOCUMENTATION: JOB ID: [id number] [id number] Quality ID # [id number]: Final reports with documentation of one or more dose reduction techniques (e.g., Au tomated exposure control, adjustment of the mA and/or kV according to patient size, use of iterative reconstruction technique) 2010 [employer]- All Rights Reserved Reading location - IP/workstation name: [employer]
[2017-07-08] MEDS: ATORVASTATIN CALCIUM 20 MG TABLET PO SCH (22:48)
[2017-07-09 05:01] LABS: ABSOLUTE BASOPHILS # (AUTO) 0.1 10^3/uL (0.0-0.2); ABSOLUTE EOSINOPHILS # (AUTO) 0.3 10^3/uL (0.0-0.6); ABSOLUTE LYMPHOCYTES (AUTO) 1.7 10^3/uL (0.5-4.7); ABSOLUTE MONOCYTES (AUTO) 0.9 10^3/uL (0.1-1.4); BASOPHILS % (AUTO) 0.4 % (0-2); EOSINOPHILS % (AUTO) 2.2 % (0-6); HEMATOCRIT 37.4 % (37.9-51.0); HEMOGLOBIN 12.4 g/dL (13.5-17.0); LYMPHOCYTES % (AUTO) 11.2 % (13-45); MEAN CORPUSCULAR HEMOGLOBIN 31.3 pg (27.0-33.4); MEAN CORPUSCULAR HGB CONC 33.1 g/dL (32.0-36.0); MEAN CORPUSCULAR VOLUME 95 fl (80-97); MONOCYTES % (AUTO) 6.3 % (3-13); PLATELET COUNT 295 10^3/uL (150-450); RED BLOOD COUNT 3.95 10^6/uL (4.35-5.55); RED CELL DISTRIBUTION WIDTH 13.8 % (11.5-14.0); SEGMENTED NEUTROPHILS % (AUTO) 79.9 % (42-78); TOTAL CELLS COUNTED % (AUTO) 100 %
[2017-07-09] MEDS: POTASSIUM CHLORIDE 20 MEQ/15 ML UDCUP PO SCH ×2 (05:09→14:35)
[2017-07-09] MEDS: LEVOTHYROXINE SODIUM 0.05 MG TABLET PO SCH (05:10)
[2017-07-09] MEDS: HYDROMORPHONE HCL INJ/PF 2 MG/ML AMPULE IV PRN ×4 (05:10→18:42)
[2017-07-09 05:36] LABS: ALANINE AMINOTRANSFERASE 24 U/L (21-72); ALBUMIN 2.6 g/dL (3.5-5.0); ALKALINE PHOSPHATASE 62 U/L (38-126); ANION GAP 11 (5-19); ASPARTATE AMINO TRANSFERASE 25 U/L (17-59); BILIRUBIN,TOTAL 0.2 mg/dL (0.2-1.3); BLOOD UREA NITROGEN 32 mg/dL (7-20); CALCIUM 8.5 mg/dL (8.4-10.2); CARBON DIOXIDE 28 mmol/L (22-30); CHLORIDE 117 mmol/L (98-107); GLUCOSE 195 mg/dL (75-110); SODIUM 156.4 mmol/L (137-145); TOTAL PROTEIN 5.1 g/dL (6.3-8.2)
[2017-07-09] MEDS: DOCUSATE SODIUM 100 MG CAPSULE PO SCH ×2 (09:09→18:43)
[2017-07-09] MEDS: ENOXAPARIN SODIUM INJ 40 MG/0.4 ML DISP.SYRIN SUBCUT SCH (09:09)
[2017-07-09] MEDS ORDERED: CEFEPIME 2 GM/D5W RTU 2 GM/50 ML RTUPB IV SCH (11:00)
[2017-07-09] MEDS ORDERED: VANCOMYCIN HCL 0 MG in DEXTROSE 5%-WATER 250 ML IV NR (11:00)
[2017-07-09] MEDS: LEVOFLOXACIN 750 MG/D5W RTU 750 MG/150 ML RTUPB IV SCH (11:51)
[2017-07-09] MEDS ORDERED: TAMSULOSIN HCL 0.4 MG CAP.SR.24H PO SCH (12:00)
[2017-07-09] MEDS ORDERED: LISINOPRIL 10 MG TABLET PO ONE (12:00)
[2017-07-09] MEDS ORDERED: VANCOMYCIN HCL 1,500 MG in DEXTROSE 5%-WATER 250 ML IV ONE (12:00)
[2017-07-09] MEDS ORDERED: FINASTERIDE 5 MG TABLET PO ONE (12:00)
[2017-07-09] MEDS ORDERED: METOPROLOL TARTRATE 25 MG TABLET PO ONE (12:00)
[2017-07-09] MEDS ORDERED: CLOPIDOGREL BISULFATE 75 MG TABLET PO ONE (12:00)
[2017-07-09] MEDS ORDERED: TAMSULOSIN HCL 0.4 MG CAP.SR.24H PO ONE (12:00)
[2017-07-09] MEDS ORDERED: CLOPIDOGREL BISULFATE 75 MG TABLET PO SCH (12:00)
[2017-07-09] MEDS ORDERED: ATORVASTATIN CALCIUM 20 MG TABLET PO ONE (12:00)
--- NOTE | 2017-07-09 13:21 | PDOC PROGRESS REPORT ---
Subjective Progress Note for:: 07/09/17 Subjective:: Patient was seen by the bedside, he has no desire to live anymore, he is openly expressing the desire to , is a DNR status CT chest without contrast was done , it showed dense consolidation throughout the left lower lobe with small patchy areas involving the right lower lobe and inferior left upper lobe. Small bilateral pleural effusion. Patient's condition is poor he has bilateral pneumonia, CVA he has underlying dementia Reason For Visit: ACUTE CVA Physical Exam Vital Signs: Temp Pulse Resp BP Pulse Ox 97.5 F 103 H 28 H 189/86 H 97 07/09/17 07:04 07/09/17 07:04 07/09/17 07:04 07/09/17 07:04 07/09/17 07:04 Intake & Output 07/08/17 07/09/17 07/10/17 06:59 06:59 06:59 Intake Total 2424 725 Output Total 1050 1050 Balance 1374 -325 Weight 80.5 kg 80.6 kg General appearance: PRESENT: no acute distress Eye exam: PRESENT: PERRLA Respiratory exam: PRESENT: crackles, rhonchi Cardiovascular exam: PRESENT: +S1, +S2 GI/Abdominal exam: PRESENT: soft, other - There is J-tube in place Neurological exam: PRESENT: alert Results Laboratory Results: 07/09/17 04:07 07/09/17 04:07 07/09/17 07/09/17 04:07 04:07 WBC 15.0 H RBC 3.95 L Hgb 12.4 L Hct 37.4 L MCV 95 MCH 31.3 MCHC 33.1 RDW 13.8 Plt Count 295 Seg Neutrophils % 79.9 H Lymphocytes % 11.2 L Monocytes % 6.3 Eosinophils % 2.2 Basophils % 0.4 Absolute Neutrophils 12.0 H Absolute Lymphocytes 1.7 Absolute Monocytes 0.9 Absolute Eosinophils 0.3 Absolute Basophils 0.1 Sodium 156.4 H Potassium 4.0 D Chloride 117 H Carbon Dioxide 28 Anion Gap 11 BUN 32 H Creatinine 0.99 Est GFR ( Amer) > 60 Est GFR (Non-Af Amer) > 60 Glucose 195 H Calcium 8.5 Total Bilirubin 0.2 AST 25 ALT 24 Alkaline Phosphatase 62 Total Protein 5.1 L Albumin 2.6 L 06/30/17 06/30/17 13:45 13:45 Creatine Kinase 139 CK-MB (CK-2) 1.27 Troponin I 0.030 NT-Pro-B Natriuret Pep 1290 H Impressions: Head MRI 06/30/17 00:00 IMPRESSION: ACUTE LACUNAR-TYPE INFARCT INVOLVING THE RIGHT PERIVENTRICULAR WHITE MATTER PRESUMABLY ACCOUNTING FOR NEW ONSET LEFT-SIDED WEAKNESS. NO LARGE TERRITORY INFARCTION, HEMORRHAGE, OR MASS LESION. EVIDENCE OF ACUTE STROKE: YES. LENTICULOSTRIATE. Head CT 06/30/17 09:01 IMPRESSION: CHRONIC CHANGES OF ATROPHY AND MICROVASCULAR ISCHEMIA. NO ACUTE PROCESS. EVIDENCE OF ACUTE STROKE: NO. Carotid Doppler Study 07/03/17 00:00 IMPRESSION: 50 to 69% stenosis left ICA. Modified Barium Swallow 07/03/17 08:00 IMPRESSION: NO EVIDENCE OF PENETRATION OR ASPIRATIONPLEASE SEE SPEECH PATHOLOGIST REPORT FOR OTHER FINDINGS AND RECOMMENDATIONS. Gastrostomy Tube Placement 07/05/17 00:00 IMPRESSION: Nasoenteric feeding tube placement under fluoro, the tip of the tube is in the pylorus.. Follow-up KUB tomorrow morning to assess whether the tube migrates distally into the duodenum Guidance Fluoroscopy 07/05/17 00:00 IMPRESSION: Nasoenteric feeding tube placement under fluoro, the tip of the tube is in the pylorus.. Follow-up KUB tomorrow morning to assess whether the tube migrates distally into the duodenum Chest CT 07/08/17 00:00 IMPRESSION: Dense consolidation throughout the left lower lobe with small patchy areas involving the right lower lobe and inferior left upper lobe. Small bilateral pleural effusions. 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 Is this a current diagnosis for this admission?: Yes (3) Left lower lobe pneumonia Qualifiers: Pneumonia type: due to unspecified organism Qualified Code(s): J18.1 - Lobar pneumonia, unspecified organism Is this a current diagnosis for this admission?: Yes (4) Dementia Qualifiers: Dementia type: Alzheimer's disease Alzheimer's disease onset: unspecified onset Dementia behavioral disturbance: without behavioral disturbance Qualified Code(s): G30.9 - Alzheimer's disease, unspecified; F02.80 - Dementia in other diseases classified elsewhere without behavioral disturbance; F02.80 - Dementia in other diseases classified elsewhere without behavioral disturbance; F02.80 - Dementia in other diseases classified elsewhere without behavioral disturbance Is this a current diagnosis for this admission?: Yes (5) Acute left arterial ischemic stroke, ICA (internal carotid artery) Is this a current diagnosis for this admission?: Yes (6) Embolic cerebral infarction Qualifiers: Precerebral and cerebral artery: carotid artery Laterality of affected vessel: left Qualified Code(s): 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
[2017-07-09] MEDS ORDERED: CEFEPIME HCL 2 GM in DEXTROSE 5%-WATER 50 ML IV ONE (13:30)
[2017-07-09] MEDS ORDERED: FINASTERIDE 5 MG TABLET PO SCH (18:00)
[2017-07-09] MEDS: CEFEPIME HCL 2 GM in NORMAL SALINE 100 ML IV SCH (18:38)
[2017-07-09] MEDS ORDERED: CEFEPIME HCL 2 GM in DEXTROSE 5%-WATER 50 ML IV SCH (22:00)
[2017-07-10] MEDS: POTASSIUM CHLORIDE 20 MEQ/15 ML UDCUP PO SCH ×4 (00:19→22:00)
[2017-07-10] MEDS: HYDROMORPHONE HCL INJ/PF 2 MG/ML AMPULE IV PRN ×4 (00:21→23:29)
[2017-07-10] MEDS: VANCOMYCIN HCL 750 MG in DEXTROSE 5%-WATER 250 ML IV SCH ×3 (00:25→22:00)
[2017-07-10] MEDS: CEFEPIME HCL 2 GM in NORMAL SALINE 100 ML IV SCH ×2 (06:00→18:17)
[2017-07-10] MEDS: LEVOTHYROXINE SODIUM 0.05 MG TABLET PO SCH (06:01)
[2017-07-10] MEDS ORDERED: DEXTROSE 40% GEL 15 GM TUBE X 2 PO PRN (09:36)
[2017-07-10] MEDS ORDERED: DEXTROSE 40% GEL 15 GM TUBE PO PRN (09:36)
[2017-07-10] MEDS ORDERED: DEXTROSE 50%-WATER SYRINGE 12.5 GM/25 ML DOSE IV PRN (09:36)
[2017-07-10] MEDS ORDERED: GLUCAGON,HUMAN RECOMB 1 MG INJ IM PRN (09:36)
[2017-07-10] MEDS ORDERED: DEXTROSE 50%-WATER SYRINGE 25 GM/50 ML DOSE IV PRN (09:36)
[2017-07-10] MEDS: TAMSULOSIN HCL 0.4 MG CAP.SR.24H PO SCH (10:01)
[2017-07-10] MEDS: DOCUSATE SODIUM 100 MG CAPSULE PO SCH ×2 (10:05→18:16)
[2017-07-10] MEDS: ENOXAPARIN SODIUM INJ 40 MG/0.4 ML DISP.SYRIN SUBCUT SCH (10:05)
[2017-07-10] MEDS: CLOPIDOGREL BISULFATE 75 MG TABLET PO SCH (10:06)
[2017-07-10] MEDS ORDERED: METOPROLOL TARTRATE 100 MG TABLET PO ONE (10:30)
[2017-07-10] MEDS ORDERED: INSULIN LISPRO 100 UNIT/ML 3 ML VIAL SUBCUT SCH (12:00)
[2017-07-10] MEDS: LEVOFLOXACIN 750 MG/D5W RTU 750 MG/150 ML RTUPB IV SCH (12:40)
[2017-07-10] MEDS: INSULIN LISPRO 100 UNIT/ML 3 ML VIAL SUBCUT PRN ×3 (12:40→22:24)
[2017-07-10] MEDS ORDERED: METOPROLOL TARTRATE 25 MG TABLET PO SCH (18:00)
[2017-07-10] MEDS: LISINOPRIL 10 MG TABLET PO SCH (18:19)
[2017-07-10] MEDS: FINASTERIDE 5 MG TABLET PO SCH (18:27)
--- NOTE | 2017-07-10 21:26 | PDOC PROGRESS REPORT ---
Subjective Progress Note for:: 07/10/17 Subjective:: Patient's condition is poor, blood pressure was elevated, the medication was adjusted. Patient continues to express the desire to Reason For Visit: ACUTE CVA Physical Exam Vital Signs: Temp Pulse Resp BP Pulse Ox 97.9 F 92 24 H 154/74 H 96 07/10/17 20:00 07/10/17 20:00 07/10/17 20:00 07/10/17 20:00 07/10/17 20:00 Intake & Output 07/09/17 07/10/17 07/11/17 06:59 06:59 06:59 Intake Total 725 2645 1555 Output Total 1050 1875 900 Balance -325 770 655 Weight 80.6 kg 79.7 kg General appearance: PRESENT: no acute distress Eye exam: PRESENT: PERRLA Respiratory exam: PRESENT: clear to auscultation luis miguel Cardiovascular exam: PRESENT: +S1 GI/Abdominal exam: PRESENT: soft Neurological exam: PRESENT: alert Results Laboratory Results: 07/09/17 04:07 07/09/17 04:07 06/30/17 06/30/17 13:45 13:45 Creatine Kinase 139 CK-MB (CK-2) 1.27 Troponin I 0.030 NT-Pro-B Natriuret Pep 1290 H Impressions: Head MRI 06/30/17 00:00 IMPRESSION: ACUTE LACUNAR-TYPE INFARCT INVOLVING THE RIGHT PERIVENTRICULAR WHITE MATTER PRESUMABLY ACCOUNTING FOR NEW ONSET LEFT-SIDED WEAKNESS. NO LARGE TERRITORY INFARCTION, HEMORRHAGE, OR MASS LESION. EVIDENCE OF ACUTE STROKE: YES. LENTICULOSTRIATE. Head CT 06/30/17 09:01 IMPRESSION: CHRONIC CHANGES OF ATROPHY AND MICROVASCULAR ISCHEMIA. NO ACUTE PROCESS. EVIDENCE OF ACUTE STROKE: NO. Carotid Doppler Study 07/03/17 00:00 IMPRESSION: 50 to 69% stenosis left ICA. Modified Barium Swallow 07/03/17 08:00 IMPRESSION: NO EVIDENCE OF PENETRATION OR ASPIRATIONPLEASE SEE SPEECH PATHOLOGIST REPORT FOR OTHER FINDINGS AND RECOMMENDATIONS. Gastrostomy Tube Placement 07/05/17 00:00 IMPRESSION: Nasoenteric feeding tube placement under fluoro, the tip of the tube is in the pylorus.. Follow-up KUB tomorrow morning to assess whether the tube migrates distally into the duodenum Guidance Fluoroscopy 07/05/17 00:00 IMPRESSION: Nasoenteric feeding tube placement under fluoro, the tip of the tube is in the pylorus.. Follow-up KUB tomorrow morning to assess whether the tube migrates distally into the duodenum Chest CT 07/08/17 00:00 IMPRESSION: Dense consolidation throughout the left lower lobe with small patchy areas involving the right lower lobe and inferior left upper lobe. Small bilateral pleural effusions. 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 Is this a current diagnosis for this admission?: Yes (3) Left lower lobe pneumonia Qualifiers: Pneumonia type: due to unspecified organism Qualified Code(s): J18.1 - Lobar pneumonia, unspecified organism Is this a current diagnosis for this admission?: Yes (4) Dementia Qualifiers: Dementia type: Alzheimer's disease Alzheimer's disease onset: unspecified onset Dementia behavioral disturbance: without behavioral disturbance Qualified Code(s): G30.9 - Alzheimer's disease, unspecified; F02.80 - Dementia in other diseases classified elsewhere without behavioral disturbance; F02.80 - Dementia in other diseases classified elsewhere without behavioral disturbance; F02.80 - Dementia in other diseases classified elsewhere without behavioral disturbance Is this a current diagnosis for this admission?: Yes (5) Acute left arterial ischemic stroke, ICA (internal carotid artery) Is this a current diagnosis for this admission?: Yes (6) Embolic cerebral infarction Qualifiers: Precerebral and cerebral artery: carotid artery Laterality of affected vessel: left Qualified Code(s): 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
[2017-07-10 22:00] LABS: ABSOLUTE BASOPHILS # (AUTO) 0.1 10^3/uL (0.0-0.2); ABSOLUTE EOSINOPHILS # (AUTO) 0.4 10^3/uL (0.0-0.6); ABSOLUTE LYMPHOCYTES (AUTO) 1.8 10^3/uL (0.5-4.7); ABSOLUTE NEUT (AUTO) 12.7 10^3/uL (1.7-8.2); BASOPHILS % (AUTO) 0.6 % (0-2); EOSINOPHILS % (AUTO) 2.7 % (0-6); HEMATOCRIT 37.6 % (37.9-51.0); HEMOGLOBIN 12.6 g/dL (13.5-17.0); MEAN CORPUSCULAR HEMOGLOBIN 31.5 pg (27.0-33.4); MEAN CORPUSCULAR HGB CONC 33.5 g/dL (32.0-36.0); MEAN CORPUSCULAR VOLUME 94 fl (80-97); MONOCYTES % (AUTO) 6.4 % (3-13); PLATELET COUNT 306 10^3/uL (150-450); RED BLOOD COUNT 3.99 10^6/uL (4.35-5.55); RED CELL DISTRIBUTION WIDTH 13.3 % (11.5-14.0); SEGMENTED NEUTROPHILS % (AUTO) 79.3 % (42-78); TOTAL CELLS COUNTED % (AUTO) 100 %; WHITE BLOOD COUNT 16.1 10^3/uL (4.0-10.5)
[2017-07-10] MEDS: ATORVASTATIN CALCIUM 20 MG TABLET PO SCH (22:00)
[2017-07-10 22:27] LABS: ALANINE AMINOTRANSFERASE 35 U/L (21-72); ALBUMIN 2.5 g/dL (3.5-5.0); ALKALINE PHOSPHATASE 58 U/L (38-126); ANION GAP 7 (5-19); ASPARTATE AMINO TRANSFERASE 28 U/L (17-59); BILIRUBIN,DIRECT 0.3 mg/dL (0.0-0.4); BILIRUBIN,TOTAL 0.3 mg/dL (0.2-1.3); BLOOD UREA NITROGEN 28 mg/dL (7-20); CALCIUM 8.1 mg/dL (8.4-10.2); CARBON DIOXIDE 29 mmol/L (22-30); CHLORIDE 110 mmol/L (98-107); GLUCOSE 199 mg/dL (75-110); POTASSIUM 4.4 mmol/L (3.6-5.0); SODIUM 145.5 mmol/L (137-145); TOTAL PROTEIN 5.2 g/dL (6.3-8.2)
[2017-07-11 05:10] LABS: ABSOLUTE BASOPHILS # (AUTO) 0.1 10^3/uL (0.0-0.2); ABSOLUTE EOSINOPHILS # (AUTO) 0.5 10^3/uL (0.0-0.6); ABSOLUTE LYMPHOCYTES (AUTO) 1.9 10^3/uL (0.5-4.7); ABSOLUTE NEUT (AUTO) 11.1 10^3/uL (1.7-8.2); BASOPHILS % (AUTO) 0.8 % (0-2); EOSINOPHILS % (AUTO) 3.2 % (0-6); HEMATOCRIT 37.8 % (37.9-51.0); HEMOGLOBIN 12.6 g/dL (13.5-17.0); MEAN CORPUSCULAR HEMOGLOBIN 31.1 pg (27.0-33.4); MEAN CORPUSCULAR HGB CONC 33.4 g/dL (32.0-36.0); MEAN CORPUSCULAR VOLUME 93 fl (80-97); MONOCYTES % (AUTO) 6.6 % (3-13); PLATELET COUNT 291 10^3/uL (150-450); RED BLOOD COUNT 4.06 10^6/uL (4.35-5.55); RED CELL DISTRIBUTION WIDTH 13.3 % (11.5-14.0); SEGMENTED NEUTROPHILS % (AUTO) 76.4 % (42-78); TOTAL CELLS COUNTED % (AUTO) 100 %; WHITE BLOOD COUNT 14.6 10^3/uL (4.0-10.5)
[2017-07-11 05:26] LABS: ALANINE AMINOTRANSFERASE 29 U/L (21-72); ALBUMIN 2.9 g/dL (3.5-5.0); ALKALINE PHOSPHATASE 64 U/L (38-126); ANION GAP 10 (5-19); ASPARTATE AMINO TRANSFERASE 28 U/L (17-59); BILIRUBIN,DIRECT 0.1 mg/dL (0.0-0.4); BILIRUBIN,TOTAL 0.3 mg/dL (0.2-1.3); BLOOD UREA NITROGEN 28 mg/dL (7-20); CALCIUM 8.2 mg/dL (8.4-10.2); CARBON DIOXIDE 30 mmol/L (22-30); CHLORIDE 106 mmol/L (98-107); GLUCOSE 216 mg/dL (75-110); POTASSIUM 4.5 mmol/L (3.6-5.0); SODIUM 145.9 mmol/L (137-145); TOTAL PROTEIN 5.7 g/dL (6.3-8.2)
[2017-07-11] MEDS: CEFEPIME HCL 2 GM in NORMAL SALINE 100 ML IV SCH ×2 (05:35→20:04)
[2017-07-11] MEDS: LEVOTHYROXINE SODIUM 0.05 MG TABLET PO SCH (05:35)
[2017-07-11] MEDS: POTASSIUM CHLORIDE 20 MEQ/15 ML UDCUP PO SCH ×3 (05:35→21:32)
[2017-07-11] MEDS: METOPROLOL TARTRATE 100 MG TABLET PO SCH ×2 (08:43→11:01)
[2017-07-11] MEDS: INSULIN LISPRO 100 UNIT/ML 3 ML VIAL SUBCUT PRN (08:44)
[2017-07-11] MEDS: ENOXAPARIN SODIUM INJ 40 MG/0.4 ML DISP.SYRIN SUBCUT SCH (10:57)
[2017-07-11] MEDS: CLOPIDOGREL BISULFATE 75 MG TABLET PO SCH (11:01)
[2017-07-11] MEDS: TAMSULOSIN HCL 0.4 MG CAP.SR.24H PO SCH (11:05)
[2017-07-11] MEDS: DOCUSATE SODIUM 100 MG CAPSULE PO SCH ×2 (11:05→20:05)
[2017-07-11 11:10] LABS: VANCOMYCIN,TROUGH 12.5 ug/mL (5.0-20.0)
[2017-07-11] MEDS ORDERED: VANCOMYCIN HCL 1,000 MG in DEXTROSE 5%-WATER 250 ML IV ONE (12:30)
[2017-07-11] MEDS: LEVOFLOXACIN 750 MG/D5W RTU 750 MG/150 ML RTUPB IV SCH (15:09)
--- NOTE | 2017-07-11 17:48 | PDOC PROGRESS REPORT ---
Subjective Progress Note for:: 07/11/17 Subjective:: Patient seen by the bedside, overall prognosis is guarded to poor Reason For Visit: ACUTE CVA Physical Exam Vital Signs: Temp Pulse Resp BP Pulse Ox 97.4 F 100 30 H 176/82 H 94 07/11/17 07:46 07/11/17 07:46 07/11/17 07:46 07/11/17 07:46 07/11/17 10:58 Intake & Output 07/10/17 07/11/17 07/12/17 06:59 06:59 06:59 Intake Total 2645 4056 0 Output Total 1875 2300 550 Balance 770 1756 -550 Weight 79.7 kg 80.6 kg General appearance: PRESENT: mild distress Eye exam: PRESENT: PERRLA Respiratory exam: PRESENT: rhonchi Cardiovascular exam: PRESENT: +S1, +S2 GI/Abdominal exam: PRESENT: soft Neurological exam: PRESENT: alert Results Laboratory Results: 07/11/17 03:45 07/11/17 03:45 07/10/17 07/10/17 07/11/17 21:43 21:43 03:45 WBC 16.1 H 14.6 H RBC 3.99 L 4.06 L Hgb 12.6 L 12.6 L Hct 37.6 L 37.8 L MCV 94 93 MCH 31.5 31.1 MCHC 33.5 33.4 RDW 13.3 13.3 Plt Count 306 291 Seg Neutrophils % 79.3 H 76.4 Lymphocytes % 11.0 L 13.0 Monocytes % 6.4 6.6 Eosinophils % 2.7 3.2 Basophils % 0.6 0.8 Absolute Neutrophils 12.7 H 11.1 H Absolute Lymphocytes 1.8 1.9 Absolute Monocytes 1.0 1.0 Absolute Eosinophils 0.4 0.5 Absolute Basophils 0.1 0.1 Sodium 145.5 H Potassium 4.4 Chloride 110 H Carbon Dioxide 29 Anion Gap 7 BUN 28 H Creatinine 0.83 Est GFR ( Amer) > 60 Est GFR (Non-Af Amer) > 60 Glucose 199 H Calcium 8.1 L Total Bilirubin 0.3 AST 28 ALT 35 Alkaline Phosphatase 58 Total Protein 5.2 L Albumin 2.5 L 07/11/17 03:45 WBC RBC Hgb Hct MCV MCH MCHC RDW Plt Count Seg Neutrophils % Lymphocytes % Monocytes % Eosinophils % Basophils % Absolute Neutrophils Absolute Lymphocytes Absolute Monocytes Absolute Eosinophils Absolute Basophils Sodium 145.9 H Potassium 4.5 Chloride 106 Carbon Dioxide 30 Anion Gap 10 BUN 28 H Creatinine 0.88 Est GFR ( Amer) > 60 Est GFR (Non-Af Amer) > 60 Glucose 216 H Calcium 8.2 L Total Bilirubin 0.3 AST 28 ALT 29 Alkaline Phosphatase 64 Total Protein 5.7 L Albumin 2.9 L 06/30/17 06/30/17 13:45 13:45 Creatine Kinase 139 CK-MB (CK-2) 1.27 Troponin I 0.030 NT-Pro-B Natriuret Pep 1290 H Impressions: Head MRI 06/30/17 00:00 IMPRESSION: ACUTE LACUNAR-TYPE INFARCT INVOLVING THE RIGHT PERIVENTRICULAR WHITE MATTER PRESUMABLY ACCOUNTING FOR NEW ONSET LEFT-SIDED WEAKNESS. NO LARGE TERRITORY INFARCTION, HEMORRHAGE, OR MASS LESION. EVIDENCE OF ACUTE STROKE: YES. LENTICULOSTRIATE. Head CT 06/30/17 09:01 IMPRESSION: CHRONIC CHANGES OF ATROPHY AND MICROVASCULAR ISCHEMIA. NO ACUTE PROCESS. EVIDENCE OF ACUTE STROKE: NO. Carotid Doppler Study 07/03/17 00:00 IMPRESSION: 50 to 69% stenosis left ICA. Modified Barium Swallow 07/03/17 08:00 IMPRESSION: NO EVIDENCE OF PENETRATION OR ASPIRATIONPLEASE SEE SPEECH PATHOLOGIST REPORT FOR OTHER FINDINGS AND RECOMMENDATIONS. Gastrostomy Tube Placement 07/05/17 00:00 IMPRESSION: Nasoenteric feeding tube placement under fluoro, the tip of the tube is in the pylorus.. Follow-up KUB tomorrow morning to assess whether the tube migrates distally into the duodenum Guidance Fluoroscopy 07/05/17 00:00 IMPRESSION: Nasoenteric feeding tube placement under fluoro, the tip of the tube is in the pylorus.. Follow-up KUB tomorrow morning to assess whether the tube migrates distally into the duodenum Chest CT 07/08/17 00:00 IMPRESSION: Dense consolidation throughout the left lower lobe with small patchy areas involving the right lower lobe and inferior left upper lobe. Small bilateral pleural effusions. 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 Is this a current diagnosis for this admission?: Yes (3) Left lower lobe pneumonia Qualifiers: Pneumonia type: due to unspecified organism Qualified Code(s): J18.1 - Lobar pneumonia, unspecified organism Is this a current diagnosis for this admission?: Yes (4) Dementia Qualifiers: Dementia type: Alzheimer's disease Alzheimer's disease onset: unspecified onset Dementia behavioral disturbance: without behavioral disturbance Qualified Code(s): G30.9 - Alzheimer's disease, unspecified; F02.80 - Dementia in other diseases classified elsewhere without behavioral disturbance; F02.80 - Dementia in other diseases classified elsewhere without behavioral disturbance; F02.80 - Dementia in other diseases classified elsewhere without behavioral disturbance Is this a current diagnosis for this admission?: Yes (5) Acute left arterial ischemic stroke, ICA (internal carotid artery) Is this a current diagnosis for this admission?: Yes (6) Embolic cerebral infarction Qualifiers: Precerebral and cerebral artery: carotid artery Laterality of affected vessel: left Qualified Code(s): 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
[2017-07-11] MEDS: LISINOPRIL 10 MG TABLET PO SCH (20:03)
[2017-07-11] MEDS: FINASTERIDE 5 MG TABLET PO SCH (20:05)
[2017-07-11] MEDS: ATORVASTATIN CALCIUM 20 MG TABLET PO SCH (21:32)
[2017-07-11] MEDS: VANCOMYCIN HCL 1,000 MG in DEXTROSE 5%-WATER 250 ML IV SCH (21:33)
[2017-07-12] MEDS: INSULIN LISPRO 100 UNIT/ML 3 ML VIAL SUBCUT PRN ×3 (00:21→19:32)
[2017-07-12] MEDS: CEFEPIME HCL 2 GM in NORMAL SALINE 100 ML IV SCH ×2 (05:07→18:42)
[2017-07-12] MEDS: POTASSIUM CHLORIDE 20 MEQ/15 ML UDCUP PO SCH ×3 (05:08→21:07)
[2017-07-12] MEDS: LEVOTHYROXINE SODIUM 0.05 MG TABLET PO SCH (05:09)
[2017-07-12] MEDS: CLOPIDOGREL BISULFATE 75 MG TABLET PO SCH (11:22)
[2017-07-12] MEDS: VANCOMYCIN HCL 1,000 MG in DEXTROSE 5%-WATER 250 ML IV SCH ×2 (11:22→21:05)
[2017-07-12] MEDS: ENOXAPARIN SODIUM INJ 40 MG/0.4 ML DISP.SYRIN SUBCUT SCH (11:24)
[2017-07-12] MEDS: DOCUSATE SODIUM 100 MG CAPSULE PO SCH ×2 (11:34→18:39)
[2017-07-12] MEDS: TAMSULOSIN HCL 0.4 MG CAP.SR.24H PO SCH (11:34)
[2017-07-12] MEDS: LEVOFLOXACIN 750 MG/D5W RTU 750 MG/150 ML RTUPB IV SCH (12:44)
[2017-07-12] MEDS: ALPRAZOLAM 0.5 MG TABLET JT PRN ×2 (14:03→21:07)
--- NOTE | 2017-07-12 17:54 | PDOC PROGRESS REPORT ---
Subjective Progress Note for:: 07/12/17 Subjective:: Patient is seen by the bedside he has bilateral pneumonia CVA with a background of dementia Reason For Visit: ACUTE CVA Physical Exam Vital Signs: Temp Pulse Resp BP Pulse Ox 97.8 F 100 13 132/47 H 98 07/12/17 16:39 07/12/17 16:39 07/12/17 16:39 07/12/17 16:39 07/12/17 16:39 Intake & Output 07/11/17 07/12/17 07/13/17 06:59 06:59 06:59 Intake Total 4056 1439 0 Output Total 2300 2875 600 Balance 3516 -1436 -600 Weight 80.6 kg 78.7 kg General appearance: PRESENT: mild distress Eye exam: PRESENT: PERRLA Neck exam: PRESENT: other Respiratory exam: PRESENT: rhonchi Cardiovascular exam: PRESENT: +S1, +S2 GI/Abdominal exam: PRESENT: soft Neurological exam: PRESENT: alert Results Laboratory Results: 07/11/17 03:45 07/11/17 03:45 06/30/17 06/30/17 13:45 13:45 Creatine Kinase 139 CK-MB (CK-2) 1.27 Troponin I 0.030 NT-Pro-B Natriuret Pep 1290 H Impressions: Head MRI 06/30/17 00:00 IMPRESSION: ACUTE LACUNAR-TYPE INFARCT INVOLVING THE RIGHT PERIVENTRICULAR WHITE MATTER PRESUMABLY ACCOUNTING FOR NEW ONSET LEFT-SIDED WEAKNESS. NO LARGE TERRITORY INFARCTION, HEMORRHAGE, OR MASS LESION. EVIDENCE OF ACUTE STROKE: YES. LENTICULOSTRIATE. Head CT 06/30/17 09:01 IMPRESSION: CHRONIC CHANGES OF ATROPHY AND MICROVASCULAR ISCHEMIA. NO ACUTE PROCESS. EVIDENCE OF ACUTE STROKE: NO. Carotid Doppler Study 07/03/17 00:00 IMPRESSION: 50 to 69% stenosis left ICA. Modified Barium Swallow 07/03/17 08:00 IMPRESSION: NO EVIDENCE OF PENETRATION OR ASPIRATIONPLEASE SEE SPEECH PATHOLOGIST REPORT FOR OTHER FINDINGS AND RECOMMENDATIONS. Gastrostomy Tube Placement 07/05/17 00:00 IMPRESSION: Nasoenteric feeding tube placement under fluoro, the tip of the tube is in the pylorus.. Follow-up KUB tomorrow morning to assess whether the tube migrates distally into the duodenum Guidance Fluoroscopy 07/05/17 00:00 IMPRESSION: Nasoenteric feeding tube placement under fluoro, the tip of the tube is in the pylorus.. Follow-up KUB tomorrow morning to assess whether the tube migrates distally into the duodenum Chest CT 07/08/17 00:00 IMPRESSION: Dense consolidation throughout the left lower lobe with small patchy areas involving the right lower lobe and inferior left upper lobe. Small bilateral pleural effusions. 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 Is this a current diagnosis for this admission?: Yes (3) Left lower lobe pneumonia Qualifiers: Pneumonia type: due to unspecified organism Qualified Code(s): J18.1 - Lobar pneumonia, unspecified organism Is this a current diagnosis for this admission?: Yes (4) Dementia Qualifiers: Dementia type: Alzheimer's disease Alzheimer's disease onset: unspecified onset Dementia behavioral disturbance: without behavioral disturbance Qualified Code(s): G30.9 - Alzheimer's disease, unspecified; F02.80 - Dementia in other diseases classified elsewhere without behavioral disturbance; F02.80 - Dementia in other diseases classified elsewhere without behavioral disturbance; F02.80 - Dementia in other diseases classified elsewhere without behavioral disturbance Is this a current diagnosis for this admission?: Yes (5) Acute left arterial ischemic stroke, ICA (internal carotid artery) Is this a current diagnosis for this admission?: Yes (6) Embolic cerebral infarction Qualifiers: Precerebral and cerebral artery: carotid artery Laterality of affected vessel: left Qualified Code(s): 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
[2017-07-12] MEDS: FINASTERIDE 5 MG TABLET PO SCH (18:39)
[2017-07-12] MEDS: LISINOPRIL 10 MG TABLET PO SCH (18:42)
[2017-07-12] MEDS: ATORVASTATIN CALCIUM 20 MG TABLET PO SCH (21:07)
[2017-07-13] MEDS: INSULIN LISPRO 100 UNIT/ML 3 ML VIAL SUBCUT PRN ×4 (01:30→17:04)
[2017-07-13] MEDS: CEFEPIME HCL 2 GM in NORMAL SALINE 100 ML IV SCH ×2 (05:04→17:03)
[2017-07-13] MEDS: POTASSIUM CHLORIDE 20 MEQ/15 ML UDCUP PO SCH ×3 (05:05→21:53)
[2017-07-13] MEDS: ALPRAZOLAM 0.5 MG TABLET JT PRN ×3 (05:05→23:01)
[2017-07-13] MEDS: LEVOTHYROXINE SODIUM 0.05 MG TABLET PO SCH (05:05)
[2017-07-13] MEDS: METOPROLOL TARTRATE 100 MG TABLET PO SCH (08:26)
[2017-07-13] MEDS: HYDROMORPHONE HCL INJ/PF 2 MG/ML AMPULE IV PRN ×3 (08:37→21:53)
[2017-07-13] MEDS: DOCUSATE SODIUM 100 MG CAPSULE PO SCH ×2 (10:00→18:56)
[2017-07-13 10:36] LABS: VANCOMYCIN,TROUGH 16.6 ug/mL (5.0-20.0)
[2017-07-13] MEDS: ENOXAPARIN SODIUM INJ 40 MG/0.4 ML DISP.SYRIN SUBCUT SCH (11:30)
[2017-07-13] MEDS: CLOPIDOGREL BISULFATE 75 MG TABLET PO SCH (11:40)
[2017-07-13] MEDS: VANCOMYCIN HCL 1,000 MG in DEXTROSE 5%-WATER 250 ML IV SCH ×2 (11:40→21:52)
[2017-07-13] MEDS: DOXAZOSIN MESYLATE 4 MG TABLET PO SCH (11:40)
[2017-07-13] MEDS: LEVOFLOXACIN 750 MG/D5W RTU 750 MG/150 ML RTUPB IV SCH (11:40)
[2017-07-13] MEDS: LISINOPRIL 10 MG TABLET PO SCH (17:04)
[2017-07-13] MEDS: FINASTERIDE 5 MG TABLET PO SCH (17:05)
[2017-07-13] MEDS: ATORVASTATIN CALCIUM 20 MG TABLET PO SCH (21:53)
--- NOTE | 2017-07-13 21:59 | PDOC PROGRESS REPORT ---
Subjective Progress Note for:: 07/13/17 Subjective:: Patient's condition is about the same Reason For Visit: ACUTE CVA Physical Exam Vital Signs: Temp Pulse Resp BP Pulse Ox 97.3 F 86 26 H 123/49 L 98 07/13/17 16:41 07/13/17 16:41 07/13/17 16:41 07/13/17 16:41 07/13/17 16:41 Intake & Output 07/12/17 07/13/17 07/14/17 06:59 06:59 06:59 Intake Total 1439 3275 500 Output Total 2875 2350 500 Balance -1436 925 0 Weight 78.7 kg 79.1 kg General appearance: PRESENT: mild distress Eye exam: PRESENT: PERRLA Respiratory exam: PRESENT: crackles Cardiovascular exam: PRESENT: +S1, +S2 GI/Abdominal exam: PRESENT: soft Neurological exam: PRESENT: alert Results Laboratory Results: 07/11/17 03:45 07/13/17 09:37 07/13/17 09:37 Creatinine 0.83 Est GFR ( Amer) > 60 Est GFR (Non-Af Amer) > 60 06/30/17 06/30/17 13:45 13:45 Creatine Kinase 139 CK-MB (CK-2) 1.27 Troponin I 0.030 NT-Pro-B Natriuret Pep 1290 H Impressions: Head MRI 06/30/17 00:00 IMPRESSION: ACUTE LACUNAR-TYPE INFARCT INVOLVING THE RIGHT PERIVENTRICULAR WHITE MATTER PRESUMABLY ACCOUNTING FOR NEW ONSET LEFT-SIDED WEAKNESS. NO LARGE TERRITORY INFARCTION, HEMORRHAGE, OR MASS LESION. EVIDENCE OF ACUTE STROKE: YES. LENTICULOSTRIATE. Head CT 06/30/17 09:01 IMPRESSION: CHRONIC CHANGES OF ATROPHY AND MICROVASCULAR ISCHEMIA. NO ACUTE PROCESS. EVIDENCE OF ACUTE STROKE: NO. Carotid Doppler Study 07/03/17 00:00 IMPRESSION: 50 to 69% stenosis left ICA. Modified Barium Swallow 07/03/17 08:00 IMPRESSION: NO EVIDENCE OF PENETRATION OR ASPIRATIONPLEASE SEE SPEECH PATHOLOGIST REPORT FOR OTHER FINDINGS AND RECOMMENDATIONS. Gastrostomy Tube Placement 07/05/17 00:00 IMPRESSION: Nasoenteric feeding tube placement under fluoro, the tip of the tube is in the pylorus.. Follow-up KUB tomorrow morning to assess whether the tube migrates distally into the duodenum Guidance Fluoroscopy 07/05/17 00:00 IMPRESSION: Nasoenteric feeding tube placement under fluoro, the tip of the tube is in the pylorus.. Follow-up KUB tomorrow morning to assess whether the tube migrates distally into the duodenum Chest CT 07/08/17 00:00 IMPRESSION: Dense consolidation throughout the left lower lobe with small patchy areas involving the right lower lobe and inferior left upper lobe. Small bilateral pleural effusions. 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 Is this a current diagnosis for this admission?: Yes (3) Left lower lobe pneumonia Qualifiers: Pneumonia type: due to unspecified organism Qualified Code(s): J18.1 - Lobar pneumonia, unspecified organism Is this a current diagnosis for this admission?: Yes (4) Dementia Qualifiers: Dementia type: Alzheimer's disease Alzheimer's disease onset: unspecified onset Dementia behavioral disturbance: without behavioral disturbance Qualified Code(s): G30.9 - Alzheimer's disease, unspecified; F02.80 - Dementia in other diseases classified elsewhere without behavioral disturbance; F02.80 - Dementia in other diseases classified elsewhere without behavioral disturbance; F02.80 - Dementia in other diseases classified elsewhere without behavioral disturbance Is this a current diagnosis for this admission?: Yes (5) Acute left arterial ischemic stroke, ICA (internal carotid artery) Is this a current diagnosis for this admission?: Yes (6) Embolic cerebral infarction Qualifiers: Precerebral and cerebral artery: carotid artery Laterality of affected vessel: left Qualified Code(s): 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
[2017-07-14] MEDS: CEFEPIME HCL 2 GM in NORMAL SALINE 100 ML IV SCH (05:48)
[2017-07-14] MEDS: LEVOTHYROXINE SODIUM 0.05 MG TABLET PO SCH (05:49)
[2017-07-14] MEDS: HYDROMORPHONE HCL INJ/PF 2 MG/ML AMPULE IV PRN ×3 (05:49→23:04)
[2017-07-14] MEDS: ALPRAZOLAM 0.5 MG TABLET JT PRN ×3 (05:49→22:59)
[2017-07-14] MEDS: POTASSIUM CHLORIDE 20 MEQ/15 ML UDCUP PO SCH ×3 (05:49→22:51)
[2017-07-14] MEDS: INSULIN LISPRO 100 UNIT/ML 3 ML VIAL SUBCUT PRN ×4 (06:00→23:28)
[2017-07-14 09:21] LABS: ABSOLUTE BASOPHILS # (AUTO) 0.1 10^3/uL (0.0-0.2); ABSOLUTE EOSINOPHILS # (AUTO) 0.2 10^3/uL (0.0-0.6); ABSOLUTE LYMPHOCYTES (AUTO) 1.3 10^3/uL (0.5-4.7); ABSOLUTE MONOCYTES (AUTO) 1.4 10^3/uL (0.1-1.4); BASOPHILS % (AUTO) 0.3 % (0-2); EOSINOPHILS % (AUTO) 1.1 % (0-6); HEMATOCRIT 34.1 % (37.9-51.0); HEMOGLOBIN 11.2 g/dL (13.5-17.0); LYMPHOCYTES % (AUTO) 7.6 % (13-45); MEAN CORPUSCULAR HEMOGLOBIN 31.2 pg (27.0-33.4); MEAN CORPUSCULAR HGB CONC 32.9 g/dL (32.0-36.0); MEAN CORPUSCULAR VOLUME 95 fl (80-97); MONOCYTES % (AUTO) 8.2 % (3-13); PLATELET COUNT 275 10^3/uL (150-450); RED BLOOD COUNT 3.59 10^6/uL (4.35-5.55); RED CELL DISTRIBUTION WIDTH 13.5 % (11.5-14.0); SEGMENTED NEUTROPHILS % (AUTO) 82.8 % (42-78); TOTAL CELLS COUNTED % (AUTO) 100 %
[2017-07-14] MEDS: METOPROLOL TARTRATE 100 MG TABLET PO SCH (10:52)
[2017-07-14] MEDS: CLOPIDOGREL BISULFATE 75 MG TABLET PO SCH (10:52)
[2017-07-14] MEDS: DOXAZOSIN MESYLATE 4 MG TABLET PO SCH (10:52)
[2017-07-14] MEDS: ENOXAPARIN SODIUM INJ 40 MG/0.4 ML DISP.SYRIN SUBCUT SCH (10:53)
[2017-07-14] MEDS: VANCOMYCIN HCL 1,000 MG in DEXTROSE 5%-WATER 250 ML IV SCH ×2 (10:53→22:59)
[2017-07-14] MEDS: DOCUSATE SODIUM 100 MG CAPSULE PO SCH ×2 (10:56→17:30)
[2017-07-14 11:55] LABS: ALANINE AMINOTRANSFERASE 44 U/L (21-72); ALBUMIN 2.8 g/dL (3.5-5.0); ALKALINE PHOSPHATASE 74 U/L (38-126); ANION GAP 8 (5-19); ASPARTATE AMINO TRANSFERASE 37 U/L (17-59); BILIRUBIN,DIRECT 0.4 mg/dL (0.0-0.4); BILIRUBIN,TOTAL 0.5 mg/dL (0.2-1.3); BLOOD UREA NITROGEN 41 mg/dL (7-20); CALCIUM 7.8 mg/dL (8.4-10.2); CARBON DIOXIDE 24 mmol/L (22-30); CHLORIDE 101 mmol/L (98-107); GLUCOSE 274 mg/dL (75-110); SODIUM 132.7 mmol/L (137-145); TOTAL PROTEIN 5.9 g/dL (6.3-8.2)
[2017-07-14] MEDS ORDERED: SODIUM POLYSTYRENE SULFONATE 15 GM/60 ML ONE (12:40)
[2017-07-14] MEDS ORDERED: DEXTROSE 50%-WATER 25 GM/50 ML DISP.SYRIN IV ONE (12:40)
[2017-07-14] MEDS ORDERED: INSULIN REG, HUMAN 100 UNIT/ML 3 ML VIAL (PYX) ONE (12:40)
[2017-07-14] MEDS ORDERED: CALCIUM GLUCONATE 1000 MG/10 ML INJ IV PRN (13:00)
[2017-07-14] MEDS: LEVOFLOXACIN 750 MG/D5W RTU 750 MG/150 ML RTUPB IV SCH (13:55)
[2017-07-14] MEDS: SODIUM POLYSTYRENE SULFONATE 15 GM/60 ML JT SCH ×3 (15:59→22:59)
[2017-07-14 16:05] LABS: ANION GAP 7 (5-19); BLOOD UREA NITROGEN 44 mg/dL (7-20); CALCIUM 7.8 mg/dL (8.4-10.2); CARBON DIOXIDE 25 mmol/L (22-30); CHLORIDE 99 mmol/L (98-107); GLUCOSE 382 mg/dL (75-110); SODIUM 130.6 mmol/L (137-145)
[2017-07-14 16:09] LABS: POTASSIUM 6.6 mmol/L (3.6-5.0)
[2017-07-14] MEDS: CEFEPIME HCL 2 GM in DEXTROSE 5%-WATER 100 ML IV SCH (18:51)
[2017-07-14] MEDS: FINASTERIDE 5 MG TABLET PO SCH (18:51)
[2017-07-14] MEDS: LISINOPRIL 10 MG TABLET PO SCH (18:51)
--- NOTE | 2017-07-14 21:33 | EKG REPORT ---
SEVERITY:- BORDERLINE ECG - SINUS RHYTHM NONSPECIFIC ST-T CHANGES LATERAL LEADS : Confirmed by: Fidel Alonzo MD 14-Jul-2017 21:32:40
--- NOTE | 2017-07-14 22:10 | PDOC PROGRESS REPORT ---
Subjective Progress Note for:: 07/14/17 Subjective:: Patient was seen by the bedside presently floor patient Reason For Visit: ACUTE CVA Physical Exam Vital Signs: Temp Pulse Resp BP Pulse Ox 98.3 F 93 21 H 110/61 95 07/14/17 19:40 07/14/17 19:40 07/14/17 19:40 07/14/17 19:40 07/14/17 19:40 Intake & Output 07/13/17 07/14/17 07/15/17 06:59 06:59 06:59 Intake Total 3275 1940 150 Output Total 2350 875 475 Balance 925 1065 -325 Weight 79.1 kg 81.2 kg General appearance: PRESENT: no acute distress Eye exam: PRESENT: PERRLA Respiratory exam: PRESENT: crackles Cardiovascular exam: PRESENT: +S1, +S2 GI/Abdominal exam: PRESENT: soft Neurological exam: PRESENT: alert Results Laboratory Results: 07/14/17 09:02 07/14/17 15:45 07/14/17 07/14/17 07/14/17 09:02 09:02 11:25 WBC 17.0 H RBC 3.59 L Hgb 11.2 L Hct 34.1 L MCV 95 MCH 31.2 MCHC 32.9 RDW 13.5 Plt Count 275 Seg Neutrophils % 82.8 H Lymphocytes % 7.6 L Monocytes % 8.2 Eosinophils % 1.1 Basophils % 0.3 Absolute Neutrophils 14.0 H Absolute Lymphocytes 1.3 Absolute Monocytes 1.4 Absolute Eosinophils 0.2 Absolute Basophils 0.1 Sodium Cancelled 132.7 L Potassium Cancelled 7.0 H* Chloride Cancelled 101 Carbon Dioxide Cancelled 24 Anion Gap Cancelled 8 BUN Cancelled 41 H Creatinine Cancelled 1.40 H Est GFR ( Amer) Cancelled 59 L Est GFR (Non-Af Amer) Cancelled 48 L Glucose Cancelled 274 H Calcium Cancelled 7.8 L Total Bilirubin Cancelled 0.5 AST Cancelled 37 ALT Cancelled 44 Alkaline Phosphatase Cancelled 74 Total Protein Cancelled 5.9 L Albumin Cancelled 2.8 L 07/14/17 15:45 WBC RBC Hgb Hct MCV MCH MCHC RDW Plt Count Seg Neutrophils % Lymphocytes % Monocytes % Eosinophils % Basophils % Absolute Neutrophils Absolute Lymphocytes Absolute Monocytes Absolute Eosinophils Absolute Basophils Sodium 130.6 L Potassium 6.6 H* Chloride 99 Carbon Dioxide 25 Anion Gap 7 BUN 44 H Creatinine 1.47 H Est GFR ( Amer) 55 L Est GFR (Non-Af Amer) 46 L Glucose 382 H Calcium 7.8 L Total Bilirubin AST ALT Alkaline Phosphatase Total Protein Albumin 06/30/17 06/30/17 13:45 13:45 Creatine Kinase 139 CK-MB (CK-2) 1.27 Troponin I 0.030 NT-Pro-B Natriuret Pep 1290 H Impressions: Head MRI 06/30/17 00:00 IMPRESSION: ACUTE LACUNAR-TYPE INFARCT INVOLVING THE RIGHT PERIVENTRICULAR WHITE MATTER PRESUMABLY ACCOUNTING FOR NEW ONSET LEFT-SIDED WEAKNESS. NO LARGE TERRITORY INFARCTION, HEMORRHAGE, OR MASS LESION. EVIDENCE OF ACUTE STROKE: YES. LENTICULOSTRIATE. Head CT 06/30/17 09:01 IMPRESSION: CHRONIC CHANGES OF ATROPHY AND MICROVASCULAR ISCHEMIA. NO ACUTE PROCESS. EVIDENCE OF ACUTE STROKE: NO. Carotid Doppler Study 07/03/17 00:00 IMPRESSION: 50 to 69% stenosis left ICA. Modified Barium Swallow 07/03/17 08:00 IMPRESSION: NO EVIDENCE OF PENETRATION OR ASPIRATIONPLEASE SEE SPEECH PATHOLOGIST REPORT FOR OTHER FINDINGS AND RECOMMENDATIONS. Gastrostomy Tube Placement 07/05/17 00:00 IMPRESSION: Nasoenteric feeding tube placement under fluoro, the tip of the tube is in the pylorus.. Follow-up KUB tomorrow morning to assess whether the tube migrates distally into the duodenum Guidance Fluoroscopy 07/05/17 00:00 IMPRESSION: Nasoenteric feeding tube placement under fluoro, the tip of the tube is in the pylorus.. Follow-up KUB tomorrow morning to assess whether the tube migrates distally into the duodenum Chest CT 07/08/17 00:00 IMPRESSION: Dense consolidation throughout the left lower lobe with small patchy areas involving the right lower lobe and inferior left upper lobe. Small bilateral pleural effusions. 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 Is this a current diagnosis for this admission?: Yes (3) Left lower lobe pneumonia Qualifiers: Pneumonia type: due to unspecified organism Qualified Code(s): J18.1 - Lobar pneumonia, unspecified organism Is this a current diagnosis for this admission?: Yes (4) Dementia Qualifiers: Dementia type: Alzheimer's disease Alzheimer's disease onset: unspecified onset Dementia behavioral disturbance: without behavioral disturbance Qualified Code(s): G30.9 - Alzheimer's disease, unspecified; F02.80 - Dementia in other diseases classified elsewhere without behavioral disturbance; F02.80 - Dementia in other diseases classified elsewhere without behavioral disturbance; F02.80 - Dementia in other diseases classified elsewhere without behavioral disturbance Is this a current diagnosis for this admission?: Yes (5) Acute left arterial ischemic stroke, ICA (internal carotid artery) Is this a current diagnosis for this admission?: Yes (6) Embolic cerebral infarction Qualifiers: Precerebral and cerebral artery: carotid artery Laterality of affected vessel: left Qualified Code(s): 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
[2017-07-14] MEDS: ATORVASTATIN CALCIUM 20 MG TABLET PO SCH (22:59)
[2017-07-15 01:22] LABS: ANION GAP 7 (5-19); BLOOD UREA NITROGEN 47 mg/dL (7-20); CALCIUM 7.8 mg/dL (8.4-10.2); CARBON DIOXIDE 28 mmol/L (22-30); CHLORIDE 98 mmol/L (98-107); GLUCOSE 227 mg/dL (75-110); POTASSIUM 5.8 mmol/L (3.6-5.0); SODIUM 132.8 mmol/L (137-145)
[2017-07-15] MEDS: POTASSIUM CHLORIDE 20 MEQ/15 ML UDCUP PO SCH (04:31)
[2017-07-15] MEDS: CEFEPIME HCL 2 GM in DEXTROSE 5%-WATER 100 ML IV SCH ×2 (05:21→18:17)
[2017-07-15] MEDS: HYDROMORPHONE HCL INJ/PF 2 MG/ML AMPULE IV PRN (05:21)
[2017-07-15] MEDS: LEVOTHYROXINE SODIUM 0.05 MG TABLET PO SCH (05:22)
[2017-07-15] MEDS: ALPRAZOLAM 0.5 MG TABLET JT PRN ×2 (05:22→13:13)
[2017-07-15 05:43] LABS: ABSOLUTE EOSINOPHILS # (AUTO) 0.2 10^3/uL (0.0-0.6); ABSOLUTE LYMPHOCYTES (AUTO) 0.8 10^3/uL (0.5-4.7); ABSOLUTE MONOCYTES (AUTO) 1.6 10^3/uL (0.1-1.4); ABSOLUTE NEUT (AUTO) 12.7 10^3/uL (1.7-8.2); BASOPHILS % (AUTO) 0.3 % (0-2); EOSINOPHILS % (AUTO) 1.2 % (0-6); HEMATOCRIT 31.2 % (37.9-51.0); HEMOGLOBIN 10.5 g/dL (13.5-17.0); LYMPHOCYTES % (AUTO) 5.4 % (13-45); MEAN CORPUSCULAR HEMOGLOBIN 31.3 pg (27.0-33.4); MEAN CORPUSCULAR HGB CONC 33.5 g/dL (32.0-36.0); MEAN CORPUSCULAR VOLUME 94 fl (80-97); MONOCYTES % (AUTO) 10.3 % (3-13); PLATELET COUNT 240 10^3/uL (150-450); RED BLOOD COUNT 3.33 10^6/uL (4.35-5.55); RED CELL DISTRIBUTION WIDTH 13.5 % (11.5-14.0); SEGMENTED NEUTROPHILS % (AUTO) 82.8 % (42-78); TOTAL CELLS COUNTED % (AUTO) 100 %; WHITE BLOOD COUNT 15.3 10^3/uL (4.0-10.5)
[2017-07-15] MEDS: INSULIN LISPRO 100 UNIT/ML 3 ML VIAL SUBCUT PRN ×3 (07:00→19:37)
[2017-07-15 08:44] LABS: ANION GAP 8 (5-19); BLOOD UREA NITROGEN 49 mg/dL (7-20); CALCIUM 7.8 mg/dL (8.4-10.2); CARBON DIOXIDE 26 mmol/L (22-30); CHLORIDE 99 mmol/L (98-107); GLUCOSE 204 mg/dL (75-110); SODIUM 132.8 mmol/L (137-145)
[2017-07-15] MEDS ORDERED: 1/2 NORMAL SALINE 1,000 ML IV PRN (09:36)
[2017-07-15] MEDS: METOPROLOL TARTRATE 100 MG TABLET PO SCH (09:42)
[2017-07-15] MEDS: VANCOMYCIN HCL 1,000 MG in DEXTROSE 5%-WATER 250 ML IV SCH (09:43)
[2017-07-15] MEDS: DOXAZOSIN MESYLATE 4 MG TABLET PO SCH (09:43)
[2017-07-15] MEDS: CLOPIDOGREL BISULFATE 75 MG TABLET PO SCH (09:44)
[2017-07-15] MEDS: DOCUSATE SODIUM 100 MG CAPSULE PO SCH ×2 (09:44→18:19)
--- NOTE | 2017-07-15 10:12 | PDOC PROGRESS REPORT ---
Subjective Progress Note for:: 07/15/17 Subjective:: Patient is currently doing same Potassium is 6.0 Patient was admitted because of the dense left-sided pneumonia and acute left- sided stroke According to the Dr. Zapata's notes patient is DNR and according to the nursing stop the tried to get the power of defense attorney through the state patient is currently lying in the bed alert awake but nonverbal Reason For Visit: ACUTE CVA Physical Exam Vital Signs: Temp Pulse Resp BP Pulse Ox 97.7 F 92 20 110/48 L 97 07/15/17 07:28 07/15/17 07:28 07/15/17 07:28 07/15/17 07:28 07/15/17 07:28 Intake & Output 07/14/17 07/15/17 07/16/17 06:59 06:59 06:59 Intake Total 1940 1580 Output Total 875 1000 Balance 1065 580 Weight 81.2 kg 84.3 kg General appearance: PRESENT: no acute distress Eye exam: PRESENT: PERRLA Mouth exam: PRESENT: neck supple Respiratory exam: PRESENT: clear to auscultation luis miguel Cardiovascular exam: PRESENT: +S1, +S2 GI/Abdominal exam: PRESENT: normal bowel sounds, soft Additonal comments: PEG tube is place Extremities exam: ABSENT: pedal edema Neurological exam: PRESENT: alert, awake Psychiatric exam: PRESENT: anxious Skin exam: PRESENT: dry Results Laboratory Results: 07/15/17 05:04 07/15/17 05:04 07/14/17 07/14/17 07/14/17 09:02 11:25 15:45 WBC RBC Hgb Hct MCV MCH MCHC RDW Plt Count Seg Neutrophils % Lymphocytes % Monocytes % Eosinophils % Basophils % Absolute Neutrophils Absolute Lymphocytes Absolute Monocytes Absolute Eosinophils Absolute Basophils Sodium Cancelled 132.7 L 130.6 L Potassium Cancelled 7.0 H* 6.6 H* Chloride Cancelled 101 99 Carbon Dioxide Cancelled 24 25 Anion Gap Cancelled 8 7 BUN Cancelled 41 H 44 H Creatinine Cancelled 1.40 H 1.47 H Est GFR ( Amer) Cancelled 59 L 55 L Est GFR (Non-Af Amer) Cancelled 48 L 46 L Glucose Cancelled 274 H 382 H Calcium Cancelled 7.8 L 7.8 L Total Bilirubin Cancelled 0.5 AST Cancelled 37 ALT Cancelled 44 Alkaline Phosphatase Cancelled 74 Total Protein Cancelled 5.9 L Albumin Cancelled 2.8 L 07/15/17 07/15/17 07/15/17 00:37 05:04 05:04 WBC 15.3 H RBC 3.33 L Hgb 10.5 L Hct 31.2 L MCV 94 MCH 31.3 MCHC 33.5 RDW 13.5 Plt Count 240 Seg Neutrophils % 82.8 H Lymphocytes % 5.4 L Monocytes % 10.3 Eosinophils % 1.2 Basophils % 0.3 Absolute Neutrophils 12.7 H Absolute Lymphocytes 0.8 Absolute Monocytes 1.6 H Absolute Eosinophils 0.2 Absolute Basophils 0.0 Sodium 132.8 L 132.8 L Potassium 5.8 H 6.0 H* Chloride 98 99 Carbon Dioxide 28 26 Anion Gap 7 8 BUN 47 H 49 H Creatinine 1.75 H 1.71 H Est GFR ( Amer) 45 L 46 L Est GFR (Non-Af Amer) 37 L 38 L Glucose 227 H 204 H Calcium 7.8 L 7.8 L Total Bilirubin AST ALT Alkaline Phosphatase Total Protein Albumin 06/30/17 06/30/17 13:45 13:45 Creatine Kinase 139 CK-MB (CK-2) 1.27 Troponin I 0.030 NT-Pro-B Natriuret Pep 1290 H Impressions: Head MRI 06/30/17 00:00 IMPRESSION: ACUTE LACUNAR-TYPE INFARCT INVOLVING THE RIGHT PERIVENTRICULAR WHITE MATTER PRESUMABLY ACCOUNTING FOR NEW ONSET LEFT-SIDED WEAKNESS. NO LARGE TERRITORY INFARCTION, HEMORRHAGE, OR MASS LESION. EVIDENCE OF ACUTE STROKE: YES. LENTICULOSTRIATE. Head CT 06/30/17 09:01 IMPRESSION: CHRONIC CHANGES OF ATROPHY AND MICROVASCULAR ISCHEMIA. NO ACUTE PROCESS. EVIDENCE OF ACUTE STROKE: NO. Carotid Doppler Study 07/03/17 00:00 IMPRESSION: 50 to 69% stenosis left ICA. Modified Barium Swallow 07/03/17 08:00 IMPRESSION: NO EVIDENCE OF PENETRATION OR ASPIRATIONPLEASE SEE SPEECH PATHOLOGIST REPORT FOR OTHER FINDINGS AND RECOMMENDATIONS. Gastrostomy Tube Placement 07/05/17 00:00 IMPRESSION: Nasoenteric feeding tube placement under fluoro, the tip of the tube is in the pylorus.. Follow-up KUB tomorrow morning to assess whether the tube migrates distally into the duodenum Guidance Fluoroscopy 07/05/17 00:00 IMPRESSION: Nasoenteric feeding tube placement under fluoro, the tip of the tube is in the pylorus.. Follow-up KUB tomorrow morning to assess whether the tube migrates distally into the duodenum Chest CT 07/08/17 00:00 IMPRESSION: Dense consolidation throughout the left lower lobe with small patchy areas involving the right lower lobe and inferior left upper lobe. Small bilateral pleural effusions. Chest X-Ray 07/08/17 15:41 IMPRESSION: Bibasilar atelectasis Assessment & Plan - Diagnosis (1) Hyperkalemia Is this a current diagnosis for this admission?: Yes Plan: We will start the patient on Kayexalate given calcium gluconate insulin and start on the patient on IV fluid We will stop the lisinopril and stop the potassium (2) Acute renal failure Qualifiers: Acute renal failure type: unspecified Qualified Code(s): N17.9 - Acute kidney failure, unspecified Is this a current diagnosis for this admission?: Yes Plan: Will get the ultrasound of the kidney also start the patient on IV fluid and consult the nephrology when available (3) Acute left arterial ischemic stroke, ICA (internal carotid artery) Is this a current diagnosis for this admission?: Yes Plan: Continues to current medication (4) Bilateral pneumonia Qualifiers: Pneumonia type: due to unspecified organism Lung location: unspecified part of lung Qualified Code(s): J18.9 - Pneumonia, unspecified organism Is this a current diagnosis for this admission?: Yes Plan: We will repeat the chest x-ray continues to IV antibiotic (5) Dementia Qualifiers: Dementia type: Alzheimer's disease Alzheimer's disease onset: unspecified onset Dementia behavioral disturbance: without behavioral disturbance Qualified Code(s): G30.9 - Alzheimer's disease, unspecified; F02.80 - Dementia in other diseases classified elsewhere without behavioral disturbance; F02.80 - Dementia in other diseases classified elsewhere without behavioral disturbance; F02.80 - Dementia in other diseases classified elsewhere without behavioral disturbance Is this a current diagnosis for this admission?: Yes (6) Hematuria Qualifiers: Hematuria type: unspecified type Qualified Code(s): R31.9 - Hematuria, unspecified Is this a current diagnosis for this admission?: Yes Plan: We will get the urine cultures will hold the Plavix and Lovenox - Time Time Spent with patient: 15-24 minutes Medications reviewed and adjusted accordingly: Yes Anticipated discharge: Other Within: Other - Inpatient Certification Medical Necessity: Need Close Monitoring Due to Risk of Patient Decompensation, Need For IV Fluids, Need for IV Antibiotics Post Hospital Care: D/C Motion Picture Narrator Documentation - Plan Summary Plan Summary: Overall patient's prognosis is poor with
[2017-07-15] MEDS ORDERED: SODIUM POLYSTYRENE SULFONATE 15 GM/60 ML PO ONE (11:00)
[2017-07-15] MEDS ORDERED: CALCIUM GLUCONATE 1000 MG/10 ML INJ IV ONE (11:00)
[2017-07-15] MEDS ORDERED: SODIUM BICARBONATE 650 MG TABLET PO ONE (11:00)
--- NOTE | 2017-07-15 11:33 | RADIOLOGY REPORT (SQ) ---
EXAM DESCRIPTION: CHEST SINGLE VIEW COMPLETED DATE/TIME: 07/15/2017 10:50 am REASON FOR STUDY: pnemonia COMPARISON: 07/08/2017 EXAM PARAMETERS: NUMBER OF VIEWS: One view. TECHNIQUE: Single frontal radiographic view of the chest acquired. RADIATION DOSE: NA LIMITATIONS: None. FINDINGS: LUNGS AND PLEURA: Persistent small left pleural effusion and associated airspace disease. Improved aeration in the right lung. MEDIASTINUM AND HILAR STRUCTURES: No masses. Contour normal. HEART AND VASCULAR STRUCTURES: Heart normal in size. Normal vasculature. BONES: No acute findings. HARDWARE: None in the chest. OTHER: No other significant finding. IMPRESSION: Residual pneumonia left lower lobe. TECHNICAL DOCUMENTATION: JOB ID: [id number] [employer]- All Rights Reserved Reading location - IP/workstation name: [email or web address]
[2017-07-15] MEDS ORDERED: INSULIN REG, HUMAN 100 UNIT/ML 3 ML VIAL (PYX) IV ONE (13:00)
[2017-07-15] MEDS ORDERED: DEXTROSE 50%-WATER 25 GM/50 ML DISP.SYRIN IV ONE (13:00)
[2017-07-15] MEDS: LEVOFLOXACIN 750 MG/D5W RTU 750 MG/150 ML RTUPB IV SCH (13:01)
--- NOTE | 2017-07-15 13:50 | PDOC CONSULTATION ---
Consultation Consult Date: 07/15/17 Attending physician:: JENNIFER TYSON Consult reason:: Abnormal EKG History of Present Illness Admission Date/PCP: 06/30/17 13:07 JENNIFER TYSON MD Patient complains of: Patient has advanced dementia and therefore not able to give any history. History of Present Illness: ALYSE ÁLVAREZ is a 82 year old male He has a history of hypertension, dementia, coronary artery disease, he came to the emergency room earlier today for evaluation of generalized body weakness, patient stated according to the medical record emergency room that "he feels like he is on his last leg". He was last seen in the emergency room yesterday for evaluation of flulike symptoms. He was evaluated he was found to have leukocytosis with white blood cell count 15.82 thousand. The chest x-ray showed left lower lobe pneumonia because patient was confused CT head was done in the emergency room showed chronic changes of atrophy there is no acute change. I received a call from the from the emergency room physician that patient needed to be admitted to the hospital. While he was in the emergency room with you for a bed on the medical floor the nursing staff noticed that patient left side was weak and he was slurred speech, a stat MRI of the head was done, it showed acute lacunar type infarct involving the right periventricular white matter there is no large territory infarction no hemorrhage or mass lesion. There was a concern initially that it could be hemorrhage patient was not considered to be a candidate for TPA because of the concern for hemorrhage The patient was hospitalized for acute stroke, left hemiparesis, dysphasia. Patient was evaluated by speech therapy, and found to be at risk for aspiration. He displayed dysfunctional swallowing by cookie swallow, and required oral cues repeatedly to facilitate swallowing. Surgery was consulted for evaluation of feeding tube. Apparently the patient cares for his invalid family members. This history was reviewed. Patient not able to add anything to the history. Discussed case with nurses taking care of. Main concern now being elevated potassium for which he is getting Kayexalate. Patient is having some diarrhea bowel movement . I was called today by Dr. Peacock to evaluate EKG changes. He is also having problems with hyperkalemia. EKG shows new appearance of Q waves inferiorly. However there were no acute ST-T wave changes. I feel that appearance of inferior Q waves most likely related to phasicity and respiration rather than any new infarct. Also patient is in generally very poor condition therefore would not be considered a candidate for any invasive evaluation, or any ischemia workup. Could consider a 2D echo if one wants to be very sure, just to look for any wall motion abnormalities.. Past Medical History Cardiac Medical History: Reports: Coronary Artery Disease, Hyperlipidema, Hypertension Pulmonary Medical History: Reports: Chronic Obstructive Pulmonary Disease (COPD) , Pneumonia Psychiatric Medical History: Reports: Dementia, Depression Past Surgical History Past Surgical History: Reports: Orthopedic Surgery - patellar fracture Social History Information Source: [facility] Records Smoking Status: Current Every Day Smoker Last Time Smoked: 06/27/17 Frequency of Alcohol Use: None Hx Recreational Drug Use: No Drugs: None Hx Prescription Drug Abuse: No - Advance Directive Resuscitation Status: Do Not Resuscitate Family History Family History: Reviewed & Not Pertinent, COPD, Hypertension Parental Family History Reviewed: No Children Family History Reviewed: No Sibling(s) Family History Reviewed.: No - No family member available to give family history. Patient cannot give any history. Medication/Allergy Home Medications: Aspirin [Adult Low Dose Aspirin EC] 81 mg PO DAILY 06/30/17 Atorvastatin Calcium [Lipitor 20 mg Tablet] 20 mg PO QHS 06/30/17 Clopidogrel Bisulfate [Plavix 75 mg Tablet] 75 mg PO DAILY 06/30/17 Docusate Sodium [Colace 100 mg Capsule] 100 mg PO BID 06/30/17 Finasteride [Proscar 5 mg Tablet] 5 mg PO DAILY 06/30/17 Lisinopril [Prinivil 10 mg Tablet] 20 mg PO DAILY 06/30/17 Memantine HCl/Donepezil HCl [Namzaric 28 mg-10 mg Capsule] 1 cap PO QPM Metoprolol Succinate [Toprol Xl] 25 mg PO DAILY 06/30/17 Tamsulosin HCl [Flomax 0.4 mg Cap.sr] 0.4 mg PO DAILY 06/30/17 Allergies/Adverse Reactions: No Known Allergies Allergy (Verified 09/18/16 01:51) Review of Systems ROS unobtainable: Due to mental status Physical Exam Vital Signs: Temp Pulse Resp BP Pulse Ox 97.7 F 92 20 110/48 L 97 07/15/17 07:28 07/15/17 07:28 07/15/17 07:28 07/15/17 07:28 07/15/17 07:28 Intake & Output 07/14/17 07/15/17 07/16/17 06:59 06:59 06:59 Intake Total 1940 1580 Output Total 875 1000 Balance 1065 580 Weight 81.2 kg 84.3 kg Exam: GENERAL: well-nourished and in no acute distress. Patient is alert but not oriented to place time or person. HEAD: Atraumatic, normocephalic. EYES: Pupils equal round and reactive to light, extraocular movements intact, sclera anicteric, conjunctiva are normal. ENT: TMs normal, nares patent, oropharynx clear without exudates. Moist mucous membranes. No oral ulcerations or bleeding gums noted NECK: supple without lymphadenopathy or JVD. Trachea is central. No cervical or axillary lymphadenopathy noted. Carotids are 2+ LUNGS: Breath sounds bibasilar coarse crackles left more than right at bases. No significant dullness noted. CHEST: Palpation of chest wall shows no significant chest wall tenderness. 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 ABDOMEN: Soft, no significant tenderness appreciated, normoactive bowel sounds. No guarding, no rebound. No rigidity noted . No masses appreciated. EXTREMITIES: Pedal pulses are 1-2+, no calf tenderness noted, Trace + pedal edema noted. No clubbing or cyanosis. NEUROLOGICAL: Patient is alert but is not able to participate in neurological exam because of patient's current mental status PSYCH: Patient cannot participate in a neurologic and psych exam because of the patient's current mental status SKIN: No significant ecchymosis, rash, ulcerations or signs of pruritus noted. MUSCULOSKELETAL EXAM: No significant joint swelling noted. Results Laboratory Results: 07/15/17 05:04 07/15/17 05:04 07/14/17 07/15/17 07/15/17 15:45 00:37 05:04 WBC 15.3 H RBC 3.33 L Hgb 10.5 L Hct 31.2 L MCV 94 MCH 31.3 MCHC 33.5 RDW 13.5 Plt Count 240 Seg Neutrophils % 82.8 H Lymphocytes % 5.4 L Monocytes % 10.3 Eosinophils % 1.2 Basophils % 0.3 Absolute Neutrophils 12.7 H Absolute Lymphocytes 0.8 Absolute Monocytes 1.6 H Absolute Eosinophils 0.2 Absolute Basophils 0.0 Sodium 130.6 L 132.8 L Potassium 6.6 H* 5.8 H Chloride 99 98 Carbon Dioxide 25 28 Anion Gap 7 7 BUN 44 H 47 H Creatinine 1.47 H 1.75 H Est GFR ( Amer) 55 L 45 L Est GFR (Non-Af Amer) 46 L 37 L Glucose 382 H 227 H Calcium 7.8 L 7.8 L 07/15/17 05:04 WBC RBC Hgb Hct MCV MCH MCHC RDW Plt Count Seg Neutrophils % Lymphocytes % Monocytes % Eosinophils % Basophils % Absolute Neutrophils Absolute Lymphocytes Absolute Monocytes Absolute Eosinophils Absolute Basophils Sodium 132.8 L Potassium 6.0 H* Chloride 99 Carbon Dioxide 26 Anion Gap 8 BUN 49 H Creatinine 1.71 H Est GFR ( Amer) 46 L Est GFR (Non-Af Amer) 38 L Glucose 204 H Calcium 7.8 L 06/30/17 06/30/17 13:45 13:45 Creatine Kinase 139 CK-MB (CK-2) 1.27 Troponin I 0.030 NT-Pro-B Natriuret Pep 1290 H EKG Comments: Multiple twelve-lead EKGs were reviewed. At best Q waves just borderline. Even if patient had a infarct, it is old as nothing of an acute ST-T wave changes is noted on yesterday's today's EKG. Patient noted to be in sinus rhythm on all EKGs reviewed. Impressions: Head MRI 06/30/17 00:00 IMPRESSION: ACUTE LACUNAR-TYPE INFARCT INVOLVING THE RIGHT PERIVENTRICULAR WHITE MATTER PRESUMABLY ACCOUNTING FOR NEW ONSET LEFT-SIDED WEAKNESS. NO LARGE TERRITORY INFARCTION, HEMORRHAGE, OR MASS LESION. EVIDENCE OF ACUTE STROKE: YES. LENTICULOSTRIATE. Head CT 06/30/17 09:01 IMPRESSION: CHRONIC CHANGES OF ATROPHY AND MICROVASCULAR ISCHEMIA. NO ACUTE PROCESS. EVIDENCE OF ACUTE STROKE: NO. Carotid Doppler Study 07/03/17 00:00 IMPRESSION: 50 to 69% stenosis left ICA. Modified Barium Swallow 07/03/17 08:00 IMPRESSION: NO EVIDENCE OF PENETRATION OR ASPIRATIONPLEASE SEE SPEECH PATHOLOGIST REPORT FOR OTHER FINDINGS AND RECOMMENDATIONS. Gastrostomy Tube Placement 07/05/17 00:00 IMPRESSION: Nasoenteric feeding tube placement under fluoro, the tip of the tube is in the pylorus.. Follow-up KUB tomorrow morning to assess whether the tube migrates distally into the duodenum Guidance Fluoroscopy 07/05/17 00:00 IMPRESSION: Nasoenteric feeding tube placement under fluoro, the tip of the tube is in the pylorus.. Follow-up KUB tomorrow morning to assess whether the tube migrates distally into the duodenum Chest CT 07/08/17 00:00 IMPRESSION: Dense consolidation throughout the left lower lobe with small patchy areas involving the right lower lobe and inferior left upper lobe. Small bilateral pleural effusions. Chest X-Ray 07/15/17 00:00 IMPRESSION: Residual pneumonia left lower lobe. Assessment & Plan - Diagnosis (1) Abnormal electrocardiogram Is this a current diagnosis for this admission?: Yes (2) Acute left arterial ischemic stroke, ICA (internal carotid artery) Is this a current diagnosis for this admission?: Yes (3) Acute renal failure Qualifiers: Acute renal failure type: unspecified Qualified Code(s): N17.9 - Acute kidney failure, unspecified Is this a current diagnosis for this admission?: Yes (4) Bilateral pneumonia Qualifiers: Pneumonia type: due to unspecified organism Lung location: unspecified part of lung Qualified Code(s): J18.9 - Pneumonia, unspecified organism Is this a current diagnosis for this admission?: Yes (5) Dementia Qualifiers: Dementia type: Alzheimer's disease Alzheimer's disease onset: unspecified onset Dementia behavioral disturbance: without behavioral disturbance Qualified Code(s): G30.9 - Alzheimer's disease, unspecified; F02.80 - Dementia in other diseases classified elsewhere without behavioral disturbance; F02.80 - Dementia in other diseases classified elsewhere without behavioral disturbance; F02.80 - Dementia in other diseases classified elsewhere without behavioral disturbance Is this a current diagnosis for this admission?: Yes (6) Hypertension Qualifiers: Hypertension type: essential hypertension Qualified Code(s): I10 - Essential (primary) hypertension Is this a current diagnosis for this admission?: Yes (7) Hyperkalemia Is this a current diagnosis for this admission?: Yes - Notes Notes: Abnormal EKG: I was consulted for abnormal electrocardiogram. Do not feel any acute coronary syndrome or any acute ischemia is going on. Q waves are just borderline and do not feel these are significant at this point. Could consider a 2D echo as this might help in overall management of this patient. Patient however has poor baseline status and also is DNR. Hyperkalemia: No significant signs of hyperkalemia on EKG review. Agree with Kayexalate therapy. Recommend IV fluids and Lasix therapy. May consider nephrology evaluation. Acute renal failure: Most likely related to metabolic cause and possible volume depletion. Chest x-ray reviewed and do not show any evidence of CHF. Patient respiratory problem could be related to pulmonary cause. Bilateral pneumonia: Continue antibiotic therapy. Hypertension: Currently stable. Recommend liberal control and avoid any hypotension. Acute cerebrovascular accident: Patient not able to cooperate during exam. Dementia: Possibly advanced. - Time Time Spent: 30 to 50 Minutes - CODE STATUS was discussed, patient remains DNR. Surrogate decision-maker not identified. Multiple medical problems were addressed. More than 50% of the time spent coordinating care, discussing management plans with involved caregivers. Management plans discussed with involved personnels. Medical decision making was of moderate to high complexity , patient's has multiple comorbidities. Medications reviewed and adjusted accordingly: Yes
[2017-07-15 15:20] LABS: BLOOD UREA NITROGEN 56 mg/dL (7-20); CALCIUM 7.5 mg/dL (8.4-10.2); CARBON DIOXIDE 23 mmol/L (22-30); CHLORIDE 103 mmol/L (98-107); GLUCOSE 265 mg/dL (75-110)
[2017-07-15 15:26] LABS: ANION GAP 5 (5-19); SODIUM 130.6 mmol/L (137-145)
[2017-07-15 15:29] LABS: POTASSIUM 6.2 mmol/L (3.6-5.0)
--- NOTE | 2017-07-15 17:56 | EKG REPORT ---
SEVERITY:- ABNORMAL ECG - SINUS TACHYCARDIA. INFERIOR INFARCT, AGE INDETERMINATE MILD NONSPECIFIC ANTEROLATERAL ST-T CHANGES NO HYPERKALEMIA T WAVES : Confirmed by: Fidel Alonzo MD 15-Jul-2017 17:55:37
[2017-07-15] MEDS: SODIUM POLYSTYRENE SULFONATE 15 GM/60 ML JT SCH ×2 (18:18→21:56)
[2017-07-15] MEDS: FINASTERIDE 5 MG TABLET PO SCH (18:19)
[2017-07-15 21:10] VITALS: BP 99/50
[2017-07-15] MEDS ORDERED: SODIUM BICARBONATE 650 MG TABLET PO SCH (22:00)
[2017-07-15] MEDS ORDERED: VANCOMYCIN HCL 500 MG in NORMAL SALINE 100 ML IV SCH (22:00)
[2017-07-15] MEDS: ATORVASTATIN CALCIUM 20 MG TABLET PO SCH (22:56)
[2017-07-16] MEDS: SODIUM POLYSTYRENE SULFONATE 15 GM/60 ML JT SCH (01:00)
[2017-07-16] MEDS ORDERED: LEVOFLOXACIN 750 MG/D5W RTU 750 MG/150 ML RTUPB IV SCH (12:00)
[2017-07-16] MEDS ORDERED: CEFEPIME HCL 2 GM in DEXTROSE 5%-WATER 100 ML IV SCH (18:00)
--- NOTE | 2017-07-17 17:16 | Death Summary ---
Summary Date : 07/16/17 Time of :: 00:00 Autopsy: No Resuscitation Status: Do Not Resuscitate - Final Diagnosis (1) Left lower lobe pneumonia Is this a current diagnosis for this admission?: Yes (2) Right sided cerebral infarction Is this a current diagnosis for this admission?: Yes (3) Hemiparesis of left dominant side due to cerebral infarction Is this a current diagnosis for this admission?: Yes (4) Dementia Is this a current diagnosis for this admission?: Yes (5) Acute left arterial ischemic stroke, ICA (internal carotid artery) Is this a current diagnosis for this admission?: Yes (6) Embolic cerebral infarction Is this a current diagnosis for this admission?: Yes (7) Hypernatremia Is this a current diagnosis for this admission?: Yes (8) Bilateral pneumonia Is this a current diagnosis for this admission?: Yes Hospital Course:: Patient with baseline dementia, he was admitted for the management of pneumonia and acute stroke. He was treated for the stroke according to the stroke protocol, he was treated with IV antibiotic for the pneumonia, he was also made a DNR according to his wishes. Patient condition was very poor he endorses desire to throughout hospital stay. He had dysphagia due to CVA, a feeding tube was inserted. He was seen by physical therapy and rehabilitation and physical therapy was recommended
== END 2017-07-16 01:50 | DRG 64 ==
LOC: ER 07:59 → EH 13:07 → 3N 18:50 → UNDODISIN 07-06 14:35
PROVIDERS: ADMIT Internal Medicine; ATTEND Internal Medicine
PROC: 0DJ68ZZ Inspection of Stomach, Via Natural or Artificial Opening Endoscopic (ICD-10-PCS; principal; 2017-07-05 12:00)
PROC: 0DHA3UZ Insertion of Feeding Device into Jejunum, Percutaneous Approach (ICD-10-PCS; 2017-07-06)
DX: I63.132 Cerebral infarction due to embolism of left carotid artery (principal); J18.1 Lobar pneumonia, unspecified organism; G81.94 Hemiplegia, unspecified affecting left nondominant side; E46 Unspecified protein-calorie malnutrition; E87.0 Hyperosmolality and hypernatremia; N17.9 Acute kidney failure, unspecified; Z66 Do not resuscitate; I69.321 Dysphasia following cerebral infarction; R94.31 Abnormal electrocardiogram [ECG] [EKG]; E87.5 Hyperkalemia; I10 Essential (primary) hypertension; E78.00 Pure hypercholesterolemia, unspecified; J44.9 Chronic obstructive pulmonary disease, unspecified; F32.9 Major depressive disorder, single episode, unspecified; G30.9 Alzheimer's disease, unspecified; F02.80 Dementia in other diseases classified elsewhere, unspecified severity, without behavioral disturbance, psychotic disturbance, mood disturbance, and anxiety; F17.210 Nicotine dependence, cigarettes, uncomplicated; Z79.01 Long term (current) use of anticoagulants; Z79.82 Long term (current) use of aspirin; Z79.899 Other long term (current) drug therapy; Z68.26 Body mass index [BMI] 26.0-26.9, adult
CPT/HCPCS: 00700; 00731; 36415; 43246; 44500; 70450; 70551; 71045; 71046; 71250; 74230; 74340; 80048; 80053; 80202; 81001; 82550; 82553; 82565; 82803; 82962; 83036; 83735; 83880; 84439; 84443; 84481; 84484; 85025; 87040; 87086; 87804; 93005; 93010; 93880; 96365; 99285; C1769; G8978-GP; G8979-GP; G8987-GO; G8988-GO; G8996-GN; G8997-GN; G8998-GN; J0330; J0610; J0692; J1170; J1650; J1815; J1885; J1940; J1956; J2250; J2704; J3010; J3370; J3480; J3490; J7030; J7060; J7620; S0164